=== PATIENT | male | born 1950 | race Caucasian/White ===

== ENCOUNTER 2020-06-28 18:16 | Emergency (ER) | payer OTHER, SELFPAY ==
[2020-06-28 18:31] VITALS: BP 183/83; PULSE 111; RESP 18; TEMP 37.6; O2SAT 96
[2020-06-28] MEDS: PROPARACAINE 0.5% OPHTH SOL 1 DROPS EYE-RIGHT (18:54)
--- NOTE | 2020-06-28 18:54 | ED_ITS ---
HPI - Extremity Problem General Chief complaint: Extremity Problem,Nontraumatic Stated complaint: shoulder neck pain Time Seen by Provider: 06/28/20 18:45 Source: patient and family Mode of arrival: Family Vehicle Limitations: no limitations History of Present Illness HPI Narrative: Patient is a 70-year-old male who does not go to the doctor and denies any medical history presents with bilateral neck pain ongoing for last 2- 3 days. He said previously he was chopping wood in is right handed. He said most of his pain is on the right side. He occasionally has numbness and tingling down his arm but denies any weakness. He took 1 of his 's Vicodin and has not had any relief from pain. He also is found to have a right subconjunctival hemorrhage. He states a few days ago a book fell off of shelf he thinks that it just inferior his periorbital area but he has a clear obvious subconjunctival hemorrhage. She denies any pain double vision or blurry vision MD Complaint: other (Neck pain) Onset (ago): day(s) Pain Consistency: intermittent Location: right and upper extremity Quality: burning and stabbing Related Data Home Medications Medication Instructions Recorded Confirmed ibuprofen #0 10/18/17 08/10/19 Previous Rx's Medication Instructions Recorded albuterol sulfate 90 mcg/actuation 2 puff INHALATION Q4-6H PRN #8.5 08/10/19 aerosol inhaler gram amoxicillin 875 mg-potassium 1 tab PO BID #20 tab 08/10/19 clavulanate 125 mg tablet benzonatate 100 mg capsule 100 mg PO BID PRN #14 cap 08/10/19 hydrocodone-acetaminophen [[place]] 1 tab PO Q6H PRN #10 tab 06/28/20 Allergies Allergy/AdvReac Type Severity Reaction Status Date / Time No Known Drug Allergies Allergy Verified 06/28/20 18:36 Review of Systems Review of Systems ROS Unobtainable: All systems reviewed & are unremarkable except as noted in HPI and below Constitutional Constitutional: Denies chills, Denies fever(s), Denies lethargy and Denies weakness Eyes Eyes: Reports as per HPI ENT Ears, Nose, Mouth, and Throat: Denies change in voice, Denies vertigo, Denies dizziness, Denies neck pain and Denies sore throat Cardiovascular Cardiovascular: Denies chest pain, Denies syncope, Denies irregular heart rhythm, Denies lightheadedness, Denies palpitations, Denies dyspnea, Denies dyspnea on exertion and Denies orthopnea Respiratory Respiratory: Denies cough, Denies dyspnea, Denies dyspnea on exertion and Denies wheezing Gastrointestinal Gastrointestinal: Denies abdominal pain, Denies change in bowel habits, Denies diarrhea, Denies nausea and Denies vomiting Musculoskeletal Musculoskeletal: Reports as per HPI and Denies neck pain Integumentary/Breasts Skin/Breast: Denies pruritus, Denies erythema, Denies rash and Denies wounds Neurologic Neurologic: Denies vertigo, Denies dizziness, Denies syncope and Denies weakness Endocrine Endocrine: Denies palpitations Allergic/Immunologic Allergic/Immunologic: Denies wheezing Patient History Medical History Diplopia TIA (transient ischemic attack) Social History Smoking Status: Current every day smoker Smoking Status: Current every day smoker tobacco type: cigarettes alcohol intake frequency: a few times a week Substance Use Type: does not use Exam Initial Vital Signs Initial Vital Signs: Vital Signs Temperature 99.6 F 06/28/20 18:31 Pulse Rate 111 H 06/28/20 18:31 Respiratory Rate 18 06/28/20 18:31 Blood Pressure 183/83 H 06/28/20 18:31 Pulse Oximetry 96 06/28/20 18:31 GENERAL: [Well-appearing, well-nourished] and in [no acute] distress. HEENT: Head atraumatic,EOMI, pupils reactive, face symmetric, [moist] mucous membranes NECK: No midline or vertebral tenderness tender over paraspinal muscles EYES: EOMI, right subconjunctival hemorrhage Right eye was treated with proparacaine, stained with fluorescein. No dye uptake. No foreign body. CARDIOVASCULAR: Regular rate and rhythm without murmurs, rubs or gallops. RESPIRATORY: Breath sounds equal bilaterally, no wheezes rales or rhonchi. ABDOMEN: Soft, nontender. Normoactive bowel sounds all 4 quadrants. No guarding or rebound. EXTREMITIES: Normal range of motion, no clubbing or edema. Neurovascularly intact NEUROLOGICAL: Alert and oriented x4.Normal gait and speech. Cranial nerves II through XII grossly intact. Radial median and ulnar nerve sensory and motor intact SKIN: Warm, dry, no laceration, no petechiae, no rashes or lesions. Course Orders Ordered: ED Orders 06/28/20 18:53 CT cervical spine wo con Stat Discontinued Medications Hydrocodone Bitart/Acetaminophen (Hydrocodone/Acet 5/325 Prepack) 1 bottle MISC SEEINSTR ONE Stop: 06/28/20 20:07 Last Admin: 06/28/20 20:16 Dose: 1 bottle Documented by: THA Fluorescein Sodium (Fluorescein 1 Mg Strip) 1 mg EYE-RIGHT NOW ONE Stop: 06/28/20 18:51 Last Admin: 06/28/20 18:56 Dose: 1 mg Documented by: THA Ketorolac Tromethamine (Ketorolac 60 Mg/2 Ml Vial) 30 mg IM NOW ONE Stop: 06/28/20 18:54 Last Admin: 06/28/20 18:55 Dose: 30 mg Documented by: THA Proparacaine HCl (Proparacaine 0.5% Ophth Daniella) 1 drops EYE-RIGHT NOW ONE Stop: 06/28/20 18:51 Last Admin: 06/28/20 18:54 Dose: 1 drop Documented by: THA Vital Signs Vital signs: Vital Signs - 8 hr 06/28/20 18:31 06/28/20 20:20 Temperature 99.6 F Pulse Rate 111 H 104 H Respiratory Rate 18 17 Blood Pressure 183/83 H 165/81 H Pulse Oximetry 96 97 MDM - Extremity (Nontraumatic) Imaging Data CT - cervical spine: Radiologist's Impression: PROCEDURE: CT CERVICAL SPINE WO CON INDICATIONS: pain TECHNIQUE: Noncontrast 3 mm thick sections acquired from the skull base to the T4 level. Sagittal and coronal reformats were then constructed. For radiation dose reduction, the following was used: automated exposure control, adjustment of mA and/or kV according to patient size. COMPARISON: None. FINDINGS: Image quality: Excellent. Bones: No fractures or dislocations. Visualized superior ribs are intact. Discs: C2-3, C3-4, and C4-5 has no significant disc disease and the foramina appear patent. C5-6 has disc bulge and disc osteophytes which cause mild bilateral foraminal stenosis. The central canal is patent. C6-7 has disc bulging and disc osteophytes which cause she mild bilateral foraminal stenosis. C7-T1 has no significant disc disease. Soft tissues: Prevertebral soft tissues are normal in thickness. No parave rtebral hematomas. No apical pneumothoraces. The carotid arteries have atherosclerotic calcifications. IMPRESSION: 1. No acute abnormality of the cervical spine. 2. No gross abnormality of the discs and central canal is identified, however visualization of the discs and central canal is limited with CT. Dictated by: Elvin Goodman M.D. on 06/28/2020 at 19:46 MDM Narrative Medical decision making narrative: The patient's pain is significantly improved after Toradol. He is able to move his neck. He has not had any eye pain or issue for last 3-4 days at this time seems to be a simple subconjunctival hemorrhage. Discharge Plan Departure Patient Disposition: Home Clinical Impression: Cervical muscle strain Qualifiers: Encounter type: initial encounter Qualified Code(s): S16.1XXA - Strain of muscle, fascia and tendon at neck level, initial encounter Instructions: DI for Cervical Muscle Strain, DI for Subconjunctival Hemorrhage Activity Restrictions/Additional Instructions: *You have been diagnosed with cervical strain and right subconjunctival hematoma *What to do: Increase activity as tolerated. Do not overdo it you will make it worse try heating pad 20-30 minutes at a time. Your I will take up to 1-2 weeks to heal completely. *Continue to take medications as directed Ibuprofen 600 mg every 6-8 hours if needed for [id number] pain [place] 1 tablet every 6 hours if needed for severe pain--> sent to [facility] *Follow up with your primary care provider in 2-3 days *Return to ER if you should have increasing weakness numbness tingling eye pain, decreased vision or any new, worsening or concerning symptoms CONTROLLED SUBSTANCE DISCHARGE (Narcotoic/benzodiazepine/Flexeril/Phenergan) 1. You have been prescribed narcotic medications, it does have acetaminophen/Tylenol/paracetamol in it so do not take extra Tylenol or Tylenol containing products TRAMADOL DOES NOT CONTAIN TYLENOL 2. Please understand that we cannot provide further refills of narcotics, benzodiazepines or controlled substances through the ED and her pain management will need to be through your provider. 3. While on these medications you cannot drive or operate heavy machinery. 4. You cannot sign legal documents or perform any duties such as this. 5. As long as you're taking opiate pain medications he should also be taking a stool softener such as Colace, Dulcolax, MiraLAX or prune juice, to help avoid constipation. Prescriptions: New hydrocodone-acetaminophen [[place]] 5-325 mg tablet 1 tab PO Q6H PRN (Reason: pain) Qty: 10 RF: 0 No Action amoxicillin-pot clavulanate [Augmentin] 875-125 mg tablet 1 tab PO BID Qty: 20 RF: 0 benzonatate [Tessalon Perles] 100 mg capsule 100 mg PO BID PRN (Reason: cough) Qty: 14 RF: 0 albuterol sulfate 90 mcg/actuation HFA aerosol inhaler 2 puff INHALATION Q4-6H PRN (Reason: bronchospasm) Qty: 8.5 RF: 0 ibuprofen 800 MG tablet Qty: 0 RF: 0 Referrals: Abraham Mendieta MD [Primary Care Provider] -
[2020-06-28] MEDS: KETOROLAC 60 MG/2 ML VIAL 30 MG IM (18:55)
[2020-06-28] MEDS: FLUORESCEIN 1 MG STRIP EYE-RIGHT (18:56)
[2020-06-28] MEDS: HYDROCODONE/ACET 5/325 PREPACK 1 BOTTLE MISC (20:16)
[2020-06-28 20:20] VITALS: BP 165/81; PULSE 104; RESP 17; O2SAT 97
== END 2020-06-28 20:20 | disposition home or self-care (01) ==
PROVIDERS: Emergency Provider Emergency Medicine; Family Provider Family Medicine; PCP Student in an Organized Health Care Education/Training Program
DX: S16.1XXA Strain of muscle, fascia and tendon at neck level, initial encounter (principal); H11.31 Conjunctival hemorrhage, right eye
CPT/HCPCS: 72125; 96372; 99281; 99284; STOP; J1885

== ENCOUNTER 2020-07-03 01:31 | Emergency (ER) | payer OTHER, SELFPAY ==
[2020-07-03] VITALS (25 sets, daily range): BP systolic 155–203; BP diastolic 69–93; PULSE 97–113; RESP 16–20; TEMP 36.7; O2SAT 87–98
--- NOTE | 2020-07-03 01:35 | ED.BACK ---
HPI - Back Pain/Injury <Roxana Parrish MD - Last Filed: 07/10/20 09:52> General Chief Complaint: Neck Pain/Injury Stated Complaint: neck and back pain Time Seen by Provider: 07/03/20 01:35 History of Present Illness HPI Narrative: 70-year-old gentleman who rarely sees physicians, presents with progressive neck pain and left arm weakness with decreased sensation in a C8-T1 distribution left greater than right. This begin when he was using his left hand, he is left-hand dominant, to chop some cancelling. He was seen in the emergency department on 06/26 to and had a CT of the cervical spine that showed minor disc bulging, osteophytes, mild foraminal stenosis and patent central canal. He was subsequently diagnosed with acute an acute neck strain and discharged home with hydrocodone. He was subsequently seen by his primary care physician 2 days later with increasing pain complaints and at that point was given additional narcotic as well as Valium for muscle spasm. He comes in today with pain in the neck dramatically out of proportion to what 1 would expect from neck strain due to chopping kindling 6 days ago. He denies a history of hypertension, hyperlipidemia, diabetes or coronary artery disease (atherosclerosis was noted on neck CT scan) and also declines any opportunity for primary care physician to diagnoses issues. Apparently has had a left lower extremity DVT in the past with chronic lymphedema and venous stasis ulcers bilaterally. He uses gauze to keep the ulcers clean but has not been able to attend to this for the last 2 days because of pain control from the neck. He has difficulty even sitting at this point and absolutely has not been able to lay down has been getting minimal sleep. He notes that he had chills initially but denies any fevers. He describes a chronic smoker's cough that exacerbates the pain with any of the coughing that he has. He also describes chronic low back pain that has not changed. He notes that his left arm is incredibly painful to move and when pushed with questioning actually is weaker as well. He notes a fullness to the left posterior of his neck that seems to be increasing over the last 6 days. Related Data Home Medications Medication Instructions Recorded Confirmed ibuprofen #0 10/18/17 06/30/20 Previous Rx's Medication Instructions Recorded diazepam 5 mg tablet 5 mg PO BID PRN #10 tab 06/30/20 diclofenac sodium 1 % topical gel 2 g TOPICAL QID #100 g 06/30/20 hydrocodone 5 mg-acetaminophen 325 1 tab PO Q4-6H PRN #20 tab 06/30/20 mg tablet naproxen 500 mg tablet 500 mg PO BID PRN #30 tab 06/30/20 Allergies Allergy/AdvReac Type Severity Reaction Status Date / Time No Known Drug Allergies Allergy Verified 06/30/20 16:34 Review of Systems <Roxana Parrish MD - Last Filed: 07/10/20 09:52> Review of Systems Narrative: Pertinent positive and negative findings as per HPI Remainder of review of systems is otherwise unremarkable for Constitutional: Fevers, ENT: No sore throat, ear pain CV: Chest pain, palpitations, GI: Nausea, vomiting, diarrhea, change in bowel habits, black or bloody stools : Dysuria, hematuria, flank pain, no change to bowel or bladder habits, no difficulty starting his stream or new evidence of urinary hesitancy or retention Neuro: Syncope, dizziness, Patient History <Roxana Parrish MD - Last Filed: 07/10/20 09:52> Medical History Diplopia Edema of lower leg due to peripheral venous insufficiency Heart murmur TIA (transient ischemic attack) Social History Smoking Status: Current every day smoker Tobacco: How many years used: 50 quit status: not considering quitting second hand exposure: Yes (Childhood ) alcohol intake: current (~4 glasses hard alcohol per week ) substance use type: does not use Smoking Status: Current every day smoker (~1 PPD ) tobacco type: cigarettes alcohol intake frequency: a few times a week Substance Use Type: does not use Exam <Roxana Parrish MD - Last Filed: 07/10/20 09:52> Narrative Exam Narrative: General: Cantankerous obese gentleman in dramatic pain with dramatic affect of behavior. Difficulty in moving from a sitting to standing position due to pain HEENT: Moist mucous membranes, healing right subconjunctival hemorrhage with reactive pupils, Neck: Exam is limited by body habitus but no obvious JVD. He has bilateral paraspinous muscle spasm with fullness over the left posterior neck without obvious mass or fluctuance. No skin changes to suggest cellulitis. No masses or fluctuant in the left supraclavicular area. No midline cervical spine tenderness. Range of motion of the neck is extraordinarily limited due to pain. No airway compromise or subcutaneous air Respiratory: Lungs with scattered wheezes worse anteriorly and loudest and left upper lobe. No crackles, no rhonchi. Full and symmetrical air movement Cardiac: Regular rate and rhythm with harsh blowing 3/6 systolic ejection murmur and no bruits Abdomen: Obese, Soft, nontender good bowel tones, no flank pain Skin: Warm and dry, left ankle venous stasis wounds with some drainage but minor erythema over medial and lateral malleoli. Neurologic: Cranial nerves are intact. Is decreased sensation to fine touch and pinprick in a C8-T1 distribution more dense on the left side but also appreciated on the right side. 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 Weakness with abduction and extension of the left arm Extremities: No trauma, significant bilateral onychomycosis. Good capillary refill but no palpable distal pulses. Left lower extremity significantly more edematous than the right, patient describes this as his baseline for number of years. Psych: Cooperative, appropriate insight and affect Initial Vital Signs Initial Vital Signs: Vital Signs Temperature 98.1 F 07/03/20 01:35 Pulse Rate 106 H 07/03/20 01:35 Respiratory Rate 18 07/03/20 01:35 Blood Pressure 203/93 H 07/03/20 01:35 Pulse Oximetry 98 07/03/20 01:35 <Ashli Streeter DO - Last Filed: 07/03/20 18:42> Initial Vital Signs Initial Vital Signs: Vital Signs Temperature 98.1 F 07/03/20 01:35 Pulse Rate 106 H 07/03/20 01:35 Respiratory Rate 18 07/03/20 01:35 Blood Pressure 203/93 H 07/03/20 01:35 Pulse Oximetry 98 07/03/20 01:35 Course <Roxana Parrish MD - Last Filed: 07/10/20 09:52> Orders Ordered: Discontinued Medications Dexamethasone (Dexamethasone 10 Mg/Ml Vial) 10 mg IV NOW ONE Stop: 07/03/20 02:19 Last Admin: 07/03/20 02:37 Dose: 10 mg Documented by: HGUBERN Hydromorphone HCl (Hydromorphone 1 Mg Inj) 1 mg IV NOW ONE Stop: 07/03/20 02:15 Last Admin: 07/03/20 02:37 Dose: 1 mg Documented by: THA Hydromorphone HCl (Hydromorphone 1 Mg Inj) 1 mg IV NOW ONE Stop: 07/03/20 02:20 Last Admin: 07/03/20 07:51 Dose: Not Given Documented by: ANGEL Hydromorphone HCl (Hydromorphone 1 Mg Inj) 1 mg IV NOW ONE Stop: 07/03/20 07:47 Last Admin: 07/03/20 07:55 Dose: 1 mg Documented by: ANGEL Hydromorphone HCl (Hydromorphone 1 Mg Inj) 1 mg IV NOW ONE Stop: 07/03/20 11:04 Last Admin: 07/03/20 11:14 Dose: 1 mg Documented by: ANGEL Ketorolac Tromethamine (Ketorolac 60 Mg/2 Ml Vial) 15 mg IV NOW ONE Stop: 07/03/20 02:18 Last Admin: 07/03/20 02:36 Dose: 15 mg Documented by: THA Ketorolac Tromethamine (Ketorolac 60 Mg/2 Ml Vial) 15 mg IV NOW ONE Stop: 07/03/20 11:08 Last Admin: 07/03/20 11:15 Dose: 15 mg Documented by: ANGEL Vital Signs Vital signs: Vital Signs - 8 hr 07/03/20 12:05 07/03/20 12:12 07/03/20 13:43 Pulse Rate 107 H 107 H Respiratory Rate 20 16 Blood Pressure 168/78 H 168/78 H 170/78 H Pulse Oximetry 91 94 <Ashli Streeter, DO - Last Filed: 07/03/20 18:42> Orders Ordered: Discontinued Medications Dexamethasone (Dexamethasone 10 Mg/Ml Vial) 10 mg IV NOW ONE Stop: 07/03/20 02:19 Last Admin: 07/03/20 02:37 Dose: 10 mg Documented by: THA Hydromorphone HCl (Hydromorphone 1 Mg Inj) 1 mg IV NOW ONE Stop: 07/03/20 02:15 Last Admin: 07/03/20 02:37 Dose: 1 mg Documented by: HGUBERN Hydromorphone HCl (Hydromorphone 1 Mg Inj) 1 mg IV NOW ONE Stop: 07/03/20 02:20 Last Admin: 07/03/20 07:51 Dose: Not Given Documented by: ANGEL Hydromorphone HCl (Hydromorphone 1 Mg Inj) 1 mg IV NOW ONE Stop: 07/03/20 07:47 Last Admin: 07/03/20 07:55 Dose: 1 mg Documented by: ANGEL Hydromorphone HCl (Hydromorphone 1 Mg Inj) 1 mg IV NOW ONE Stop: 07/03/20 11:04 Last Admin: 07/03/20 11:14 Dose: 1 mg Documented by: ANGEL Ketorolac Tromethamine (Ketorolac 60 Mg/2 Ml Vial) 15 mg IV NOW ONE Stop: 07/03/20 02:18 Last Admin: 07/03/20 02:36 Dose: 15 mg Documented by: THA Ketorolac Tromethamine (Ketorolac 60 Mg/2 Ml Vial) 15 mg IV NOW ONE Stop: 07/03/20 11:08 Last Admin: 07/03/20 11:15 Dose: 15 mg Documented by: ANGEL Reevaluation(s) Reevaluation #1: Patient signed out to myself by Dr. Parrish. Seen in department, reviewed HPI, labs and imaging. Plan for MRI this morning to further delineate changes seen in left posterior strap muscle region and for final disposition. Time: 07:29 Reevaluation #2: Patient refused MRI as it was too painful, discussed adding medications as his last dose was about 2 hours ago. Patient was continuing to be reluctant his eventually arrived and we were able to talk him into MRI but at that point the window for the initial imaging had passed. There was another opening at 3:30 p.m. and I discussed that I am happy to treat his pain at any time here in the department or any way that is possible as a field very important that he get imaging. Patient is agreeable his is at bedside and seems much more comfortable with this plan. I also made clear that I am happy to give medications prior to any imaging to make him as comfortable as possible for imaging. Time: 10:35 Reevaluation #3: Patient left the department without telling anyone, his noticed that he had gone to the bathroom and then just left. He refuses to re-enter the department and has signed against medical advice. Patient had multiple discussions about the potential causes of his symptoms today and findings so far in his images. We had multiple discussions the possibility of disability or further injury secondary to this and patient did sign paperwork after he left the department but would not re-enter. Time: 14:53 Vital Signs Vital signs: Vital Signs - 8 hr 07/03/20 12:05 07/03/20 12:12 07/03/20 13:43 Pulse Rate 107 H 107 H Respiratory Rate 20 16 Blood Pressure 168/78 H 168/78 H 170/78 H Pulse Oximetry 91 94 MDM - Back Pain/Injury <Roxana Parrish MD - Last Filed: 07/10/20 09:52> Lab Data Result diagrams: 07/03/20 02:25 07/03/20 02:25 Labs: Lab Results 07/03/20 07/03/20 07/03/20 Range/Units 02:25 02:25 02:25 WBC 13.8 H (4.5-11.0) X10^3/uL RBC 4.39 L (4.5-5.9) X10^6/uL Hgb 12.3 L (13.5-17.5) g/dL Hct 37.2 L (41-53) % MCV 84.8 (80-100) fL MCH 27.9 (26-34) PG MCHC 33.0 (30-36) % RDW 14.4 (11.6-14.8) % Plt Count 259 (150-400) X10^3/uL Neut % (Auto) 73.4 (50-75) % Lymph % (Auto) 6.9 L (25-40) % [place] % (Auto) 18.4 H (3-14) % Eos % (Auto) 1.0 L (2-4) % Baso % (Auto) 0.3 (0-2) % Neut # (Auto) 61334 H (5961-2837) /uL Lymph # (Auto) 900 L (5348-2556) /uL [place] # (Auto) 2500 H (0-900) /uL Eos # (Auto) 100 (0-450) /uL Baso # (Auto) 0 (0-100) /uL ESR 59 H (0-15) MM/HR PT (10.1-12.7) SECONDS INR (0.9-1.3) APTT (26.4-36.2) SECONDS Sodium (137-145) mmol/L Potassium (3.4-5.1) mmol/L Chloride (98-107) mmol/L Carbon Dioxide (22-32) mmol/L BUN (9-20) mg/dL Creatinine (0.66-1.25) mg/dL Estimated GFR (>60) mL/min BUN/Creatinine Ratio (6-22) Glucose (80-110) mg/dL Calcium (8.4-10.2) mg/dL Total Bilirubin (0.2-1.3) mg/dL AST (17-59) IU/L ALT (<50) IU/L Alkaline Phosphatase (38-126) U/L C-Reactive Protein 45.4 H (<1.0) mg/dL Total Protein (6.3-8.2) g/dL Albumin (3.5-5.0) g/dL Globulin (1.7-4.1) g/dL Albumin/Globulin Ratio (1.0-2.8) Procalcitonin (<0.5) ng/mL Urine RBC (0-5/HPF) Urine WBC (0-5/HPF) Urine Bacteria (None) Ur Culture Indicated? A. baumannii (PCR) (Not Detect) Adyana albicans (PCR) (Not Detect) C. glabrata (PCR) (Not Detect) C. krusei (PCR) (Not Detect) C. parapsilosis (PCR) (Not Detect) C. tropicalis (PCR) (Not Detect) COVID-19 PCR (Negative) Enterobacteriac sp PCR (Not Detect) E. cloacae complex PCR (Not Detect) Enterococcus sp PCR (Not Detect) E. coli (PCR) (Not Detect) H. influenzae (PCR) (Not Detect) Klebsiella oxytoca PCR (Not Detect) Klebsiella pneumoniae (Not Detect) List. monocytogenes PCR (Not Detect) N. meningitidis (PCR) (Not Detect) Proteus species (PCR) (Not Detect) Serratia marcescens PCR (Not Detect) Staphylococcus sp PCR (Not Detect) Staph aureus (PCR) (Not Detect) mecA-Methicil Res Gene (Not Detect) Streptococcus sp PCR (Not Detect) Group A Strep (PCR) (Not Detect) Strep agalactiae (PCR) (Not Detect) Strep pneumoniae (PCR) (Not Detect) P. aeruginosa (PCR) (Not Detect) Jordana/B-Vanco Res Genes (Not Detect) KPC-Carbap Res Gene PCR (Not Detect) 07/03/20 07/03/20 07/03/20 Range/Units 02:25 02:25 02:25 WBC (4.5-11.0) X10^3/uL RBC (4.5-5.9) X10^6/uL Hgb (13.5-17.5) g/dL Hct (41-53) % MCV (80-100) fL MCH (26-34) PG MCHC (30-36) % RDW (11.6-14.8) % Plt Count (150-400) X10^3/uL Neut % (Auto) (50-75) % Lymph % (Auto) (25-40) % [place] % (Auto) (3-14) % Eos % (Auto) (2-4) % Baso % (Auto) (0-2) % Neut # (Auto) (7456-6554) /uL Lymph # (Auto) (9836-5275) /uL [place] # (Auto) (0-900) /uL Eos # (Auto) (0-450) /uL Baso # (Auto) (0-100) /uL ESR (0-15) MM/HR PT 15.0 H (10.1-12.7) SECONDS INR 1.3 (0.9-1.3) APTT 31 (26.4-36.2) SECONDS Sodium 135 L (137-145) mmol/L Potassium 3.5 (3.4-5.1) mmol/L Chloride 100 (98-107) mmol/L Carbon Dioxide 26 (22-32) mmol/L BUN 29 H (9-20) mg/dL Creatinine 0.68 (0.66-1.25) mg/dL Estimated GFR > 60.0 (>60) mL/min BUN/Creatinine Ratio 42.6 H (6-22) Glucose 147 H (80-110) mg/dL Calcium 9.2 (8.4-10.2) mg/dL Total Bilirubin 0.5 (0.2-1.3) mg/dL AST 30 (17-59) IU/L ALT 43 (<50) IU/L Alkaline Phosphatase 140 H (38-126) U/L C-Reactive Protein (<1.0) mg/dL Total Protein 7.5 (6.3-8.2) g/dL Albumin 3.9 (3.5-5.0) g/dL Globulin 3.6 (1.7-4.1) g/dL Albumin/Globulin Ratio 1.1 (1.0-2.8) Procalcitonin 0.35 (<0.5) ng/mL Urine RBC (0-5/HPF) Urine WBC (0-5/HPF) Urine Bacteria (None) Ur Culture Indicated? A. baumannii (PCR) (Not Detect) Dayana albicans (PCR) (Not Detect) C. glabrata (PCR) (Not Detect) C. krusei (PCR) (Not Detect) C. parapsilosis (PCR) (Not Detect) C. tropicalis (PCR) (Not Detect) COVID-19 PCR (Negative) Enterobacteriac sp PCR (Not Detect) E. cloacae complex PCR (Not Detect) Enterococcus sp PCR (Not Detect) E. coli (PCR) (Not Detect) H. influenzae (PCR) (Not Detect) Klebsiella oxytoca PCR (Not Detect) Klebsiella pneumoniae (Not Detect) List. monocytogenes PCR (Not Detect) N. meningitidis (PCR) (Not Detect) Proteus species (PCR) (Not Detect) Serratia marcescens PCR (Not Detect) Staphylococcus sp PCR (Not Detect) Staph aureus (PCR) (Not Detect) mecA-Methicil Res Gene (Not Detect) Streptococcus sp PCR (Not Detect) Group A Strep (PCR) (Not Detect) Strep agalactiae (PCR) (Not Detect) Strep pneumoniae (PCR) (Not Detect) P. aeruginosa (PCR) (Not Detect) Jordana/B-Vanco Res Genes (Not Detect) KPC-Carbap Res Gene PCR (Not Detect) 07/03/20 07/03/20 07/03/20 Range/Units 02:25 03:20 08:09 WBC (4.5-11.0) X10^3/uL RBC (4.5-5.9) X10^6/uL Hgb (13.5-17.5) g/dL Hct (41-53) % MCV (80-100) fL MCH (26-34) PG MCHC (30-36) % RDW (11.6-14.8) % Plt Count (150-400) X10^3/uL Neut % (Auto) (50-75) % Lymph % (Auto) (25-40) % [place] % (Auto) (3-14) % Eos % (Auto) (2-4) % Baso % (Auto) (0-2) % Neut # (Auto) (0470-0899) /uL Lymph # (Auto) (6589-7745) /uL [place] # (Auto) (0-900) /uL Eos # (Auto) (0-450) /uL Baso # (Auto) (0-100) /uL ESR (0-15) MM/HR PT (10.1-12.7) SECONDS INR (0.9-1.3) APTT (26.4-36.2) SECONDS Sodium (137-145) mmol/L Potassium (3.4-5.1) mmol/L Chloride (98-107) mmol/L Carbon Dioxide (22-32) mmol/L BUN (9-20) mg/dL Creatinine (0.66-1.25) mg/dL Estimated GFR (>60) mL/min BUN/Creatinine Ratio (6-22) Glucose (80-110) mg/dL Calcium (8.4-10.2) mg/dL Total Bilirubin (0.2-1.3) mg/dL AST (17-59) IU/L ALT (<50) IU/L Alkaline Phosphatase (38-126) U/L C-Reactive Protein (<1.0) mg/dL Total Protein (6.3-8.2) g/dL Albumin (3.5-5.0) g/dL Globulin (1.7-4.1) g/dL Albumin/Globulin Ratio (1.0-2.8) Procalcitonin (<0.5) ng/mL Urine RBC None seen (0-5/HPF) Urine WBC 5-10/hpf H (0-5/HPF) Urine Bacteria None seen (None) Ur Culture Indicated? Specimen cultured A. baumannii (PCR) Not detected (Not Detect) Dayana albicans (PCR) Not detected (Not Detect) C. glabrata (PCR) Not detected (Not Detect) C. krusei (PCR) Not detected (Not Detect) C. parapsilosis (PCR) Not detected (Not Detect) C. tropicalis (PCR) Not detected (Not Detect) COVID-19 PCR Negative (Negative) Enterobacteriac sp PCR Not detected (Not Detect) E. cloacae complex PCR Not detected (Not Detect) Enterococcus sp PCR Not detected (Not Detect) E. coli (PCR) Not detected (Not Detect) H. influenzae (PCR) Not detected (Not Detect) Klebsiella oxytoca PCR Not detected (Not Detect) Klebsiella pneumoniae Not detected (Not Detect) List. monocytogenes PCR Not detected (Not Detect) N. meningitidis (PCR) Not detected (Not Detect) Proteus species (PCR) Not detected (Not Detect) Serratia marcescens PCR Not detected (Not Detect) Staphylococcus sp PCR Detected H (Not Detect) Staph aureus (PCR) Detected H (Not Detect) mecA-Methicil Res Gene Not detected (Not Detect) Streptococcus sp PCR Not detected (Not Detect) Group A Strep (PCR) Not detected (Not Detect) Strep agalactiae (PCR) Not detected (Not Detect) Strep pneumoniae (PCR) Not detected (Not Detect) P. aeruginosa (PCR) Not detected (Not Detect) Jordana/B-Vanco Res Genes Not detected (Not Detect) KPC-Carbap Res Gene PCR Not detected (Not Detect) Urine Dip Bedside Urine Glucose Negative Bedside Urine Bilirubin - Negative Bedside Urine Ketone - Negative Urine Specific [place] 1.020 Bedside Urine Occult Blood - Negative Bedside Urine pH 6.0 Bedside Urine Protein + 30 Bedside Urine Urobilinogen - Negative Bedside Urine Nitrite - Negative Bedside Urine Leukocytes - Negative Esterase Imaging Data CT neck: Radiologist's Impression: New fullness in the left paraspinous strap musculature not present 5 days ago. Ill-defined with intramuscular low attenuation measuring 2.2 x 2.9 x 3.9. No involvement of the spine or intraspinous space no gas within the collection no significant abnormal enhancement consistent with hematoma or developing infection. Moderate left lower posterior chain and supraclavicular adenopathy Dr Miguel Rodriguez CT scan - chest: Radiologist's Impression: No abnormality identified within the chest Incompletely assessed low attenuation lesion of right lobe of liver could represent a cyst or a hamartoma Dr Miguel Rodriguez [facility] Narrative Medical decision making narrative: 70-year-old gentleman with now 6 days of increasing neck pain with progressive left-sided paresthesia and weakness. Pain is dramatically out of proportion to exam. Patient is very reluctant to allow a complete exam and not interested in any additional discussion of problems that may be contributing. With the progressive numbness and weakness he certainly is going to need additional imaging. With the fullness in the left posterior neck soft tissue will begin with adding a soft tissue of the neck to complement the C-spine CT scan done on the . Will also include a CT scan of the chest with possibility of neoplasm or abnormality in the left upper lobe that is contributing to overall pain. He also has venous stasis ulcers that are superficially draining but do not appear to be overtly infected. He denies permission for complete examination, cleaning or debridement of these areas. Possibility of cervical spine epidural abscess is entertained. He agrees to labs, pain control and additional imaging studies. If problem is not clearly elucidated with initial workup he will be appropriate for cervical spine MRI given the dramatic pain and progressive weakness in the left arm. 430am pain is much better controlled after soft collar in place and IV Toradol, Dilaudid, Decadron given. White blood cell count is slightly elevated at 13.8 without significant left shift. Mild anemia with H&H of 12.3 and 37.2 decreased from 15.4 in 45.73 years ago. Chemistries are Relatively reassuring. Slightly elevated alkaline phosphatase. At least 6 hour fasting glucose at 1:47 a.m. will need further workup at some point in the future. Elevated C reactive protein and sed rate suggesting inflammatory response without an elevated procalcitonin. No obvious malignancy is appreciated on scans however he does have this new density in left posterior strap muscles noted on the soft tissue of the neck. Unclear whether this is a hematoma he has had a decrease in his hematocrit but comparison is 3 years ago or infection with a slightly elevated white blood cell count however no evidence of an elevated procalcitonin. While this inflammatory response of uncertain etiology in the left posterior strap muscles can certainly explain the increased pain they do not necessarily explain the weakness or paresthesia and certainly do not explain the right-sided weakness or paresthesia. At this point, and MRI to completely exclude epidural abscess and further quantify the fullness and adenopathy in the left posterior strap muscles will be appropriate. Case is reviewed with Dr. Rodriguez, radiologist. Given constellation of symptoms and findings as well as rapid interval development he agrees that an MRI of the C-spine without contrast would be the next most appropriate study. <Ashli Streeter, DO - Last Filed: 07/03/20 18:42> Lab Data Labs: Lab Results 07/03/20 07/03/20 07/03/20 Range/Units 02:25 02:25 02:25 WBC 13.8 H (4.5-11.0) X10^3/uL RBC 4.39 L (4.5-5.9) X10^6/uL Hgb 12.3 L (13.5-17.5) g/dL Hct 37.2 L (41-53) % MCV 84.8 (80-100) fL MCH 27.9 (26-34) PG MCHC 33.0 (30-36) % RDW 14.4 (11.6-14.8) % Plt Count 259 (150-400) X10^3/uL Neut % (Auto) 73.4 (50-75) % Lymph % (Auto) 6.9 L (25-40) % [place] % (Auto) 18.4 H (3-14) % Eos % (Auto) 1.0 L (2-4) % Baso % (Auto) 0.3 (0-2) % Neut # (Auto) 98314 H (4936-5959) /uL Lymph # (Auto) 900 L (7205-6348) /uL [place] # (Auto) 2500 H (0-900) /uL Eos # (Auto) 100 (0-450) /uL Baso # (Auto) 0 (0-100) /uL ESR 59 H (0-15) MM/HR PT (10.1-12.7) SECONDS INR (0.9-1.3) APTT (26.4-36.2) SECONDS Sodium (137-145) mmol/L Potassium (3.4-5.1) mmol/L Chloride (98-107) mmol/L Carbon Dioxide (22-32) mmol/L BUN (9-20) mg/dL Creatinine (0.66-1.25) mg/dL Estimated GFR (>60) mL/min BUN/Creatinine Ratio (6-22) Glucose (80-110) mg/dL Calcium (8.4-10.2) mg/dL Total Bilirubin (0.2-1.3) mg/dL AST (17-59) IU/L ALT (<50) IU/L Alkaline Phosphatase (38-126) U/L C-Reactive Protein 45.4 H (<1.0) mg/dL Total Protein (6.3-8.2) g/dL Albumin (3.5-5.0) g/dL Globulin (1.7-4.1) g/dL Albumin/Globulin Ratio (1.0-2.8) Procalcitonin (<0.5) ng/mL Urine RBC (0-5/HPF) Urine WBC (0-5/HPF) Urine Bacteria (None) Ur Culture Indicated? A. baumannii (PCR) (Not Detect) Dayana albicans (PCR) (Not Detect) C. glabrata (PCR) (Not Detect) C. krusei (PCR) (Not Detect) C. parapsilosis (PCR) (Not Detect) C. tropicalis (PCR) (Not Detect) COVID-19 PCR (Negative) Enterobacteriac sp PCR (Not Detect) E. cloacae complex PCR (Not Detect) Enterococcus sp PCR (Not Detect) E. coli (PCR) (Not Detect) H. influenzae (PCR) (Not Detect) Klebsiella oxytoca PCR (Not Detect) Klebsiella pneumoniae (Not Detect) List. monocytogenes PCR (Not Detect) N. meningitidis (PCR) (Not Detect) Proteus species (PCR) (Not Detect) Serratia marcescens PCR (Not Detect) Staphylococcus sp PCR (Not Detect) Staph aureus (PCR) (Not Detect) mecA-Methicil Res Gene (Not Detect) Streptococcus sp PCR (Not Detect) Group A Strep (PCR) (Not Detect) Strep agalactiae (PCR) (Not Detect) Strep pneumoniae (PCR) (Not Detect) P. aeruginosa (PCR) (Not Detect) Jordana/B-Vanco Res Genes (Not Detect) KPC-Carbap Res Gene PCR (Not Detect) 07/03/20 07/03/20 07/03/20 Range/Units 02:25 02:25 02:25 WBC (4.5-11.0) X10^3/uL RBC (4.5-5.9) X10^6/uL Hgb (13.5-17.5) g/dL Hct (41-53) % MCV (80-100) fL MCH (26-34) PG MCHC (30-36) % RDW (11.6-14.8) % Plt Count (150-400) X10^3/uL Neut % (Auto) (50-75) % Lymph % (Auto) (25-40) % [place] % (Auto) (3-14) % Eos % (Auto) (2-4) % Baso % (Auto) (0-2) % Neut # (Auto) ([id number]) /uL Lymph # (Auto) (1631-2928) /uL [place] # (Auto) (0-900) /uL Eos # (Auto) (0-450) /uL Baso # (Auto) (0-100) /uL ESR (0-15) MM/HR PT 15.0 H (10.1-12.7) SECONDS INR 1.3 (0.9-1.3) APTT 31 (26.4-36.2) SECONDS Sodium 135 L (137-145) mmol/L Potassium 3.5 (3.4-5.1) mmol/L Chloride 100 (98-107) mmol/L Carbon Dioxide 26 (22-32) mmol/L BUN 29 H (9-20) mg/dL Creatinine 0.68 (0.66-1.25) mg/dL Estimated GFR > 60.0 (>60) mL/min BUN/Creatinine Ratio 42.6 H (6-22) Glucose 147 H (80-110) mg/dL Calcium 9.2 (8.4-10.2) mg/dL Total Bilirubin 0.5 (0.2-1.3) mg/dL AST 30 (17-59) IU/L ALT 43 (<50) IU/L Alkaline Phosphatase 140 H (38-126) U/L C-Reactive Protein (<1.0) mg/dL Total Protein 7.5 (6.3-8.2) g/dL Albumin 3.9 (3.5-5.0) g/dL Globulin 3.6 (1.7-4.1) g/dL Albumin/Globulin Ratio 1.1 (1.0-2.8) Procalcitonin 0.35 (<0.5) ng/mL Urine RBC (0-5/HPF) Urine WBC (0-5/HPF) Urine Bacteria (None) Ur Culture Indicated? A. baumannii (PCR) (Not Detect) Dayana albicans (PCR) (Not Detect) C. glabrata (PCR) (Not Detect) C. krusei (PCR) (Not Detect) C. parapsilosis (PCR) (Not Detect) C. tropicalis (PCR) (Not Detect) COVID-19 PCR (Negative) Enterobacteriac sp PCR (Not Detect) E. cloacae complex PCR (Not Detect) Enterococcus sp PCR (Not Detect) E. coli (PCR) (Not Detect) H. influenzae (PCR) (Not Detect) Klebsiella oxytoca PCR (Not Detect) Klebsiella pneumoniae (Not Detect) List. monocytogenes PCR (Not Detect) N. meningitidis (PCR) (Not Detect) Proteus species (PCR) (Not Detect) Serratia marcescens PCR (Not Detect) Staphylococcus sp PCR (Not Detect) Staph aureus (PCR) (Not Detect) mecA-Methicil Res Gene (Not Detect) Streptococcus sp PCR (Not Detect) Group A Strep (PCR) (Not Detect) Strep agalactiae (PCR) (Not Detect) Strep pneumoniae (PCR) (Not Detect) P. aeruginosa (PCR) (Not Detect) Jordana/B-Vanco Res Genes (Not Detect) KPC-Carbap Res Gene PCR (Not Detect) 07/03/20 07/03/20 07/03/20 Range/Units 02:25 03:20 08:09 WBC (4.5-11.0) X10^3/uL RBC (4.5-5.9) X10^6/uL Hgb (13.5-17.5) g/dL Hct (41-53) % MCV (80-100) fL MCH (26-34) PG MCHC (30-36) % RDW (11.6-14.8) % Plt Count (150-400) X10^3/uL Neut % (Auto) (50-75) % Lymph % (Auto) (25-40) % [place] % (Auto) (3-14) % Eos % (Auto) (2-4) % Baso % (Auto) (0-2) % Neut # (Auto) (6699-3909) /uL Lymph # (Auto) (0198-5560) /uL [place] # (Auto) (0-900) /uL Eos # (Auto) (0-450) /uL Baso # (Auto) (0-100) /uL ESR (0-15) MM/HR PT (10.1-12.7) SECONDS INR (0.9-1.3) APTT (26.4-36.2) SECONDS Sodium (137-145) mmol/L Potassium (3.4-5.1) mmol/L Chloride (98-107) mmol/L Carbon Dioxide (22-32) mmol/L BUN (9-20) mg/dL Creatinine (0.66-1.25) mg/dL Estimated GFR (>60) mL/min BUN/Creatinine Ratio (6-22) Glucose (80-110) mg/dL Calcium (8.4-10.2) mg/dL Total Bilirubin (0.2-1.3) mg/dL AST (17-59) IU/L ALT (<50) IU/L Alkaline Phosphatase (38-126) U/L C-Reactive Protein (<1.0) mg/dL Total Protein (6.3-8.2) g/dL Albumin (3.5-5.0) g/dL Globulin (1.7-4.1) g/dL Albumin/Globulin Ratio (1.0-2.8) Procalcitonin (<0.5) ng/mL Urine RBC None seen (0-5/HPF) Urine WBC 5-10/hpf H (0-5/HPF) Urine Bacteria None seen (None) Ur Culture Indicated? Specimen cultured A. baumannii (PCR) Not detected (Not Detect) Dayana albicans (PCR) Not detected (Not Detect) C. glabrata (PCR) Not detected (Not Detect) C. krusei (PCR) Not detected (Not Detect) C. parapsilosis (PCR) Not detected (Not Detect) C. tropicalis (PCR) Not detected (Not Detect) COVID-19 PCR Negative (Negative) Enterobacteriac sp PCR Not detected (Not Detect) E. cloacae complex PCR Not detected (Not Detect) Enterococcus sp PCR Not detected (Not Detect) E. coli (PCR) Not detected (Not Detect) H. influenzae (PCR) Not detected (Not Detect) Klebsiella oxytoca PCR Not detected (Not Detect) Klebsiella pneumoniae Not detected (Not Detect) List. monocytogenes PCR Not detected (Not Detect) N. meningitidis (PCR) Not detected (Not Detect) Proteus species (PCR) Not detected (Not Detect) Serratia marcescens PCR Not detected (Not Detect) Staphylococcus sp PCR Detected H (Not Detect) Staph aureus (PCR) Detected H (Not Detect) mecA-Methicil Res Gene Not detected (Not Detect) Streptococcus sp PCR Not detected (Not Detect) Group A Strep (PCR) Not detected (Not Detect) Strep agalactiae (PCR) Not detected (Not Detect) Strep pneumoniae (PCR) Not detected (Not Detect) P. aeruginosa (PCR) Not detected (Not Detect) Jordana/B-Vanco Res Genes Not detected (Not Detect) KPC-Carbap Res Gene PCR Not detected (Not Detect) Urine Dip Bedside Urine Glucose Negative Bedside Urine Bilirubin - Negative Bedside Urine Ketone - Negative Urine Specific [place] 1.020 Bedside Urine Occult Blood - Negative Bedside Urine pH 6.0 Bedside Urine Protein + 30 Bedside Urine Urobilinogen - Negative Bedside Urine Nitrite - Negative Bedside Urine Leukocytes - Negative Esterase MDM Narrative Medical decision making narrative: Patient was attempted to re-contact after positive blood culture was called to ED after patient left. Called [phone] and left message at family number to call back that important and serious culture resulted and patient needs to return. Also called [phone] which was a non-working number as person to notify, daughter Yazmin. Patient did leave AMA and we had talked extensively about my concern for possible serious infection such as epidural abscess, osteomyelitis or other possible life threatening issue. Patient did call back and was told to return, his is also on the line and they will return per patient and . Discharge Plan Departure Patient Disposition: Left Against Medical Advice Clinical Impression: Heart murmur, Edema of lower leg due to peripheral venous insufficiency, Neck infection Venous stasis ulcer of ankle Qualifiers: Varicose vein presence: without varicose veins Laterality: left Non-pressure ulcer stage: with fat layer exposed Qualified Code(s): I87.2 - Venous insufficiency (chronic) (peripheral) Activity Restrictions/Additional Instructions: Your CT imaging shows possible infection in your soft tissue or bone or epidural space versus blood collection or ligament damage or muscle injury and you need further imaging/MRI. These can potentially be permanently disabiling injuries/illness or cause . It is not recommended that you return home. You may return at any time to the re-evaluation and treatment and imaging. MRI is not available 24 hours a day. Prescriptions: No Action ibuprofen 800 MG tablet Qty: 0 RF: 0 hydrocodone-acetaminophen 5-325 mg tablet 1 tab PO Q4-6H PRN (Reason: pain) Qty: 20 RF: 0 diazepam 5 mg tablet 5 mg PO BID PRN (Reason: muscle spasm) Qty: 10 RF: 0 naproxen [Naprosyn] 500 mg tablet 500 mg PO BID PRN (Reason: pain) Qty: 30 RF: 0 diclofenac sodium 1 % gel 2 g topical QID Qty: 100 RF: 1 Referrals: Abraham Mendieta MD [Primary Care Provider] - Stand Alone Forms: Against Medical Advice
--- NOTE | 2020-07-03 02:14 | DI.CT.S_ITS ---
PROCEDURE: CT SOFT TISSUE NECK W CON INDICATIONS: fullness left posterior neck, increased pain- Cspine 06/28 TECHNIQUE: After the administration of intravenous contrast, 3.0 mm axial sections acquired from the sella to the aortic arch. Additional oblique axial 3.0 mm sections acquired through the pharynx. 3 mm thick coronal and sagittal reformats were generated. For radiation dose reduction, the following was used: automated exposure control. COMPARISON: None. FINDINGS: Image quality: Excellent. Lymph nodes: No enlarged lymph nodes seen throughout the neck. Vessels: Visualized vasculature appears patent. Neck spaces: The oropharynx, nasopharynx, and pharynx demonstrate no mucosal lesions. The vocal cords, false vocal cords, pyriform sinuses, epiglottis, vallecula, and tongue base all appear normal. Extramucosal spaces appear unremarkable. Glands: The parotid and submandibular glands appear normal. Thyroid gland appears normal where well seen. Miscellaneous: Visualized brain and orbits appear normal. Lung apices appear clear. Superficial soft tissues appear normal. Note is made of asymmetric thickening of the strap musculature at the left posterior neck, in an area measuring up to 3.2 x 1.8 cm in maximal axial dimension and clearly asymmetrically prominent when compared to that on the right. There is indistinct margination of the muscular fascial layers in this portion of the strap muscles, and this extends craniocaudad over approximately an 8 cm length. Bones: No suspicious bony lesions. Visualized sinuses and mastoids appear unremarkable. IMPRESSION: Abnormal thickening of the left posterior neck strap musculature, with a craniocaudad dimension and maximal axial dimension at 3.2 x 1.8 cm. This could represent evidence of infection within this area, or subacute hemorrhage. MR scanning with contrast would provide additional anatomic detail. Extension of the process to the cervical spine margin is not seen. Please correlate clinically to determine whether emergent surgical intervention and/or MR scanning is warranted at this time. Note: These findings are concordant with the preliminary interpretation. Dictated by: Jarad Leal M.D. on 07/03/2020 9:58 Approved by: Jarad Leal M.D. on 07/03/2020 at 10:03
--- NOTE | 2020-07-03 02:17 | DI.CT.S_ITS ---
PROCEDURE: CT CHEST W CON INDICATIONS: L upper lung pain, long time smoker TECHNIQUE: After the administration of intravenous contrast, 5 mm thick sections acquired from the pulmonary apices to the posterior costophrenic angles. 1 mm axial lung, 5 mm thick coronal and sagittal reformats and 7 mm axial MIP were acquired. For radiation dose reduction, the following was used: automated exposure control, adjustment of mA and/or kV according to patient size. COMPARISON: [facility], CT, CT CERVICAL SPINE WO CON, 06/28/2020, 19:12. [facility], CR, CHEST 1 VIEW, 08/07/2016, 13:48. [facility], CR, CHEST 2 VIEW, 10/18/2017, 11:12. FINDINGS: Image quality: Excellent. Lungs and pleura: No definite acute air space opacities but there is mild alveolar infiltration at the far posterolateral border of the right upper lobe, seen centered on series 2, image 41 and located at the axial level correlated with the eliecer. No pleural effusions or pneumothorax. Central and peripheral airways are patent and normal in caliber. Mediastinum: Heart size is normal. No pericardial effusion. No mediastinal or hilar adenopathy by size criteria. Thoracic aorta and central pulmonary arteries are normal in size. Esophagus is normal in caliber. No hiatal hernia. Bones and chest wall: No suspicious bony lesions. No vertebral body compression fractures. No axillary or supraclavicular adenopathy by size criteria. Thyroid gland is normal where well seen. Abdomen: Visualized upper abdominal solid organs appear normal. Upper abdominal bowel loops are normal in caliber. Note is made of a rounded peripheral subcapsular right hepatic 1.5 cm presumed cyst. IMPRESSION: A definite source of left upper chest pain is not found. Note is made of slight degree of alveolar infiltration at the posterolateral right upper lobe inferiorly, mid chest level. Lung scarring or slight pneumonia both could produce that appearance. Incidental note is made of a small presumed cyst measuring near water density within the right hepatic lobe posteriorly. Dictated by: Jarad Leal M.D. on 07/03/2020 at 9:36 Approved by: Jarad Leal M.D. on 07/03/2020 at 9:54
[2020-07-03] MEDS: KETOROLAC 60 MG/2 ML VIAL 15 MG IV ×2 (02:36→11:15)
[2020-07-03] MEDS: DEXAMETHASONE 10 MG/ML VIAL IV (02:37)
[2020-07-03] MEDS: HYDROMORPHONE 1 MG INJ IV ×3 (02:37→11:14)
[2020-07-03 02:38] LABS: Add Manual Diff / Slide Review NO; Basophils Absolute Auto 0 /uL (0-100); Basophils Percent Auto 0.3 % (0-2); Eosinophils Absolute Auto 100 /uL (0-450); Hematocrit 37.2 % (41-53); Hemoglobin 12.3 g/dL (13.5-17.5); Lymphocytes Absolute Auto 900 /uL (1100-4500); Lymphocytes Percent Auto 6.9 % (25-40); Mean Corpuscular Hemoglobin 27.9 PG (26-34); Mean Corpuscular Volume 84.8 fL (80-100); Monocytes Absolute Auto 2500 /uL (0-900); Monocytes Percent Auto 18.4 % (3-14); Neutrophils Absolute Auto 10100 /uL (1500-7000); Neutrophils Percent Auto 73.4 % (50-75); Platelet Count 259 X10^3/uL (150-400); Red Blood Cell Count 4.39 X10^6/uL (4.5-5.9); Red Cell Distribution Width 14.4 % (11.6-14.8); White Blood Cell Count 13.8 X10^3/uL (4.5-11.0)
[2020-07-03 02:45] LABS: Alanine Aminotransferase 43 IU/L (<50); Albumin 3.9 g/dL (3.5-5.0); Albumin Globulin Ratio 1.1 (1.0-2.8); Alkaline Phosphatase 140 U/L (38-126); Aspartate Aminotransferase 30 IU/L (17-59); BUN Creatinine Ratio 42.6 (6-22); Bilirubin Total 0.5 mg/dL (0.2-1.3); Blood Urea Nitrogen 29 mg/dL (9-20); Calcium 9.2 mg/dL (8.4-10.2); Carbon Dioxide 26 mmol/L (22-32); Chloride 100 mmol/L (98-107); Estimated Glomerular Filt Rate > 60.0 mL/min (>60); Globulin 3.6 g/dL (1.7-4.1); Glucose 147 mg/dL (80-110); HEMOLYSIS < 15 (0-50); Potassium 3.5 mmol/L (3.4-5.1); Sodium 135 mmol/L (137-145); Total Protein 7.5 g/dL (6.3-8.2)
[2020-07-03 02:55] LABS: Erythrocyte Sedimentation Rate 59 MM/HR (0-15)
[2020-07-03 02:58] LABS: Procalcitonin 0.35 ng/mL (<0.5)
--- NOTE | 2020-07-03 02:59 | PC.NURSE ---
History of bilateral venous stasis ulcers over left medial and lateral mallieoli, removed dressing there that he presented with,both lesions had slight erythema and scant yellowish drainage,both irrigated with sterile saline and telfa,kerlix and coban applied as dressing after,tolerated well.
[2020-07-03 03:15] LABS: C-Reactive Protein Quant 45.4 mg/dL (<1.0)
[2020-07-03 03:42] LABS: COVID19 -Nasal RAPID Negative (Negative)
[2020-07-03 04:57] LABS: INR 1.3 (0.9-1.3)
[2020-07-03 05:00] LABS: PTT Partial Thromboplastin Tim 31 SECONDS (26.4-36.2)
[2020-07-03 10:28] LABS: Bacteria Urine None Seen; RBC Urine None Seen (0-5/HPF)
[2020-07-03 10:40] LABS: Culture Indicated Urine Specimen Cultured; WBC Urine 5-10/HPF (0-5/HPF)
--- NOTE | 2020-07-03 13:15 | PC.NURSE ---
Introduced self and role to patient. Confirmed care plan with patient for MRI at 1530 and to premedicate prior to MRI. Patient confirmed understanding of plan. Patient and provided with ice water and reoriented to call light.
--- NOTE | 2020-07-03 14:48 | PC.NURSE ---
Patient left ED through front doors. Located patient outside hospital entrance and asked patient if he would come back into ED. Patient states No I am done. I have worked in [employer] for a long time and I know how this works. It's always going to be someone ahead of me. I told myself if it reaches 3:30pm and I'm not seen then I am out of here. Educated patient on current time of 1445 and plan for MRI at 1530 and addressed patients concerns of wait with education of MRI policy in ED. Patient confirmed understanding of all this but stated I am still not coming back. Patient refused to sign AMA papers. Provider notified and aware. Daphney ODOM met patient outside to remove IV.
[2020-07-03 18:03] LABS: Acinetobacter baumannii Not Detected (Not Detect); Candida albicans Not Detected (Not Detect); Candida glabrata Not Detected (Not Detect); Candida krusei Not Detected (Not Detect); Candida parapsilosis Not Detected (Not Detect); Candida tropicalis Not Detected (Not Detect); E. coli Not Detected (Not Detect); Enterobacter cloacae complex Not Detected (Not Detect); Enterobacteriaceae species Not Detected (Not Detect); Enterococcus species Not Detected (Not Detect); Haemophilus influenzae Not Detected (Not Detect); KPC (carbapenem-resist gene) Not Detected (Not Detect); Listeria monocytogenes Not Detected (Not Detect); Methicillin-resistant gene Not Detected (Not Detect); Neisseria meningitidis Not Detected (Not Detect); Proteus species Not Detected (Not Detect); Pseudomonas aeruginosa Not Detected (Not Detect); Serratia marcescens Not Detected (Not Detect); Staphylococcus species Detected (Not Detect); Streptococcus agalactiae (Gr B Not Detected (Not Detect); Streptococcus pneumonia Not Detected (Not Detect); Streptococcus pyogenes (Gr A) Not Detected (Not Detect); Streptococcus species Not Detected (Not Detect); Vancomycin-rest genes A/B Not Detected (Not Detect)
== END 2020-07-03 14:45 | disposition left against medical advice (07) ==
PROVIDERS: Emergency Medicine; Emergency Provider Emergency Medicine; Family Provider Family Medicine; PCP Student in an Organized Health Care Education/Training Program
DX: I87.2 Venous insufficiency (chronic) (peripheral) (principal); L08.9 Local infection of the skin and subcutaneous tissue, unspecified; R01.1 Cardiac murmur, unspecified; R60.0 Localized edema; I83.003 Varicose veins of unspecified lower extremity with ulcer of ankle; L97.309 Non-pressure chronic ulcer of unspecified ankle with unspecified severity
CPT/HCPCS: 36415; 70491; 71260; 80053; 81003; 81015; 84145; 85025; 85610; 85651; 85730; 86140; 87040; 87086; 87150; 87186; 87205; 87635; 99284; J1100; J1170; J1885; Q9967

== ENCOUNTER 2020-07-03 19:21 | Emergency (ER) | payer OTHER, SELFPAY ==
--- NOTE | 2020-07-03 19:28 | DI.MRI.S_ITS ---
PROCEDURE: MR CERVICAL SPINE W CON INDICATIONS: pain, abnormal findings on CT, request per Rads TECHNIQUE: Noncontrast sagittal T1 spin echo and T2 fast spin echo, sagittal STIR, foraminal oblique sagittal T2 fast spin echo, axial gradient echo or T2 fast spin echo through the cervical spine. After the administration of contrast, axial and sagittal T1 spin echo with fat saturation through the cervical spine. COMPARISON: [facility], CT, CT CHEST W CON, 07/03/2020, 2:24. [facility], CT, CT SOFT TISSUE NECK W CON, 07/03/2020, 2:24. [facility], CT, CT CERVICAL SPINE WO CON, 06/28/2020, 19:12. FINDINGS: Image quality: Fair. Alignment and curvature: There is normal bony alignment. Marrow: Marrow is normal in overall signal, without suspicious enhancement. Spinal cord: Visualized spinal cord has normal size and signal. No cerebellar tonsillar herniation. No abnormal intramedullary enhancement. Mild posterior disc protrusions most pronounced at C4-C5 and C5-C6. Paraspinous soft tissues: Abnormal T2 hyperintensity in the left posterior paraspinal musculature, (5/12). This measures approximately 5.3 x 3.8 x 3.1 cm. There is mild intrinsic T1 hypointensity. This does not extend to the central canal. IMPRESSION: Abnormal T2 signal within the left posterior paraspinal musculature. Suspect a edema rather than neoplasm on this noncontrast examination. Etiology is uncertain. Mild disc disease in the cervical spine. Dictated by: Joseph Hua M.D. on 07/03/2020 at 21:03 Approved by: Joseph Hua M.D. on 07/03/2020 at 21:12
[2020-07-03 19:30] VITALS: BP 169/78; PULSE 101; RESP 17; TEMP 37.3; O2SAT 96; BMI 31.1
[2020-07-03] MEDS: HYDROMORPHONE 1 MG INJ IV (19:56)
[2020-07-03 20:06] LABS: Lactate (Lactic Acid) 1.2 mmol/L (0.7-2.1)
[2020-07-03 20:21] LABS: Procalcitonin 0.37 ng/mL (<0.5)
--- NOTE | 2020-07-03 20:31 | ED_ITS ---
HPI - Recheck/Abnormal Lab/Rx General Chief Complaint: Recheck/Abnormal Lab/Rx Stated Complaint: POSTIVE BLOOD INFECTION SOMEWHERE Time Seen by Provider: 07/03/20 19:28 Source: family Mode of arrival: Ambulatory Limitations: no limitations History of Present Illness HPI narrative: 70M daily smoker returns to the ED after leaving AMA earlier today. Please see Dr. Streeter's note as well. On 06/28 with a complaint bilateral neck pain going on for a few days, CT without contrast was administered and no significant findings were noted. He has had progressively worsening neck pain and left arm weakness with decreased sensation. He noticed that it was worsening when he was attempting to chop wood. Earlier today he mentioned that he had been having chills but still denies any fever, vomiting, chest pain or shortness of breath. He had a very thorough exam IV contrast that noted thickening of the left posterior musculature with dimensions 3.2 x 1.8 cm and suggestion of possible infection versus subacute hemorrhage. Full lab evaluation noting abnormal inflammatory markers and MRI were ordered. Patient and of leave before the MRI could be completed. He was called at home with blood cultures were found to be positive for Staphylococcus. complaint: needs IV antibiotics Initial visit (ago): hour(s) Initial visit for: other Returns today for: persistent/worsening pain related to initial visit Symptoms since prior visit: no new symptoms Context: called for abnormal lab result and called for positive culture result Associated symptoms: chills Related Data Home Medications Medication Instructions Recorded Confirmed ibuprofen #0 10/18/17 06/30/20 Previous Rx's Medication Instructions Recorded diazepam 5 mg tablet 5 mg PO BID PRN #10 tab 06/30/20 diclofenac sodium 1 % topical gel 2 g TOPICAL QID #100 g 06/30/20 hydrocodone 5 mg-acetaminophen 325 1 tab PO Q4-6H PRN #20 tab 06/30/20 mg tablet naproxen 500 mg tablet 500 mg PO BID PRN #30 tab 06/30/20 Allergies Allergy/AdvReac Type Severity Reaction Status Date / Time No Known Drug Allergies Allergy Verified 06/30/20 16:34 Review of Systems Constitutional Constitutional: Reports chills, Denies fatigue, Denies fever(s), Denies frequent falls, Denies lethargy and Denies weakness Eyes Eyes: Denies change in vision, Denies eye discharge, Denies irritation and Denies loss of vision ENT Ears, Nose, Mouth, and Throat: Denies change in voice, Denies dizziness, Reports neck pain, Denies sore throat and Denies throat swelling Cardiovascular Cardiovascular: Denies chest pain, Denies irregular heart rhythm, Denies lightheadedness, Denies palpitations, Denies dyspnea, Denies dyspnea on exertion and Denies orthopnea Respiratory Respiratory: Denies cough, Denies dyspnea, Denies dyspnea on exertion and Denies wheezing Gastrointestinal Gastrointestinal: Denies abdominal pain, Denies change in bowel habits, Denies diarrhea, Denies nausea and Denies vomiting Musculoskeletal Musculoskeletal: Reports neck pain and Denies numbness Integumentary/Breasts Skin/Breast: Denies pruritus, Denies erythema, Denies rash and Denies wounds Neurologic Neurologic: Denies behavioral changes, Denies confusion, Denies dizziness, Denies frequent falls, Denies loss of vision, Denies numbness and Denies weakness Psychiatric Psychiatric: Denies anxiety, Denies behavioral changes, Denies confusion, Denies depression, Denies homicidal ideation and Denies suicidal ideation Endocrine Endocrine: Denies fatigue, Denies flushing and Denies palpitations Hematologic/Lymphatic Hematologic/Lymphatic: Denies easy bruising Allergic/Immunologic Allergic/Immunologic: Denies urticaria, Denies throat swelling and Denies wheezing Patient History Medical History Diplopia Edema of lower leg due to peripheral venous insufficiency Heart murmur TIA (transient ischemic attack) Social History Smoking Status: Current every day smoker Tobacco: How many years used: 50 quit status: not considering quitting second hand exposure: Yes (Childhood ) alcohol intake: current (~4 glasses hard alcohol per week ) substance use type: does not use Smoking Status: Current every day smoker tobacco type: cigarettes alcohol intake frequency: a few times a week Substance Use Type: does not use Exam Narrative Exam Narrative: GENERAL: [70] year old patient appears stated age. And a bit started on. He clearly is in pain with motion HEAD: Atraumatic. Normocephalic. EYES: Pupils equal round and reactive. Extraocular motions intact. No scleral icterus. No injection or drainage. ENT: Nose without bleeding, purulent drainage. Throat without erythema, tonsillar hypertrophy or exudate. Airway patent. NECK: Trachea midline. Pain with palpation in left-sided paraspinal musculature, no redness, warmth or induration. CARDIOVASCULAR: Regular rate and rhythm without murmurs, gallops, or rubs. RESPIRATORY: Clear to auscultation. Breath sounds equal bilaterally. No wheezes, rales, or rhonchi. GASTROINTESTINAL: Abdomen soft, non-tender, nondistended. EXTREMITIES: No edema or joint tenderness. BACK: Nontender without deformity or crepitance. No flank tenderness. NEURO: AOx3. As noted earlier, he has decreased sensation to fine touch in the C8-T1 distribution on left greater than right. 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 in decreased resistance to adduction of left upper extremity SKIN: No rash or erythema of visible areas Initial Vital Signs Initial Vital Signs: Vital Signs Temperature 99.2 F 07/03/20 19:30 Pulse Rate 101 H 07/03/20 19:30 Respiratory Rate 17 07/03/20 19:30 Blood Pressure 169/78 H 07/03/20 19:30 Pulse Oximetry 96 07/03/20 19:30 Course Orders Ordered: ED Orders 07/03/20 19:28 MR cervical spine w con Stat 07/03/20 19:45 Lactate (Lactic Acid) Stat Procalcitonin Stat Sodium Chloride (Normal Saline 0.9%) 1,000 mls @ 125 mls/hr IV CONT BELINDA Last Infusion: 07/04/20 00:00 Dose: 0 mls/hr Documented by: Admin: 07/03/20 20:55 Dose: 125 mls/hr Documented by: KBROTEM Discontinued Medications Hydromorphone HCl (Hydromorphone 1 Mg Inj) 1 mg IV NOW ONE Stop: 07/03/20 19:53 Last Admin: 07/03/20 19:56 Dose: 1 mg Documented by: KGALLAG Hydromorphone HCl (Hydromorphone 0.5 Mg Inj) 0.5 mg IV NOW ONE Stop: 07/03/20 22:40 Last Admin: 07/03/20 22:44 Dose: 0.5 mg Documented by: RMARTIN Hydromorphone HCl (Hydromorphone 0.5 Mg Inj) 0.5 mg IV NOW ONE Stop: 07/04/20 00:02 Last Admin: 07/04/20 00:04 Dose: 0.5 mg Documented by: TREVOR Vancomycin HCl/Dextrose (Vancomycin) 2,000 mg in 400 mls @ 200 mls/hr IV NOW ONE Stop: 07/03/20 22:55 Last Infusion: 07/03/20 23:46 Dose: 0 mls/hr Documented by: Admin: 07/03/20 21:02 Dose: 200 mls/hr Documented by: MARIA DOLORES Nicotine (Nicotine 21 Mg Patch) 21 mg TOP NOW ONE Stop: 07/03/20 21:01 Last Admin: 07/03/20 21:02 Dose: 21 mg Documented by: MARIA DOLORES Consultations Consultation #1: Upon receipt of MRI, noting ring-enhancing lesion with neurologic findings a call was placed to the [facility] physician. She initially spoke with Neurosurgery at [place] but given lack of spinal cord or bony involvement they admitted patient to hospitalist (Dr. Lockwood at [place]) who likely consult Interventional Radiology. Patient and his understand the diagnosis, the need for transfer and are in complete agreement with the plan Vital Signs Vital signs: Vital Signs - 8 hr 07/03/20 19:30 07/03/20 23:45 Temperature 99.2 F 98.1 F Pulse Rate 101 H 105 H Respiratory Rate 17 20 Blood Pressure 169/78 H 155/72 H Pulse Oximetry 96 92 MDM - Recheck/Abnormal Lab/Rx Lab Data Labs: Lab Results 07/03/20 07/03/20 Range/Units 19:45 19:45 Lactate 1.2 (0.7-2.1) mmol/L Procalcitonin 0.37 (<0.5) ng/mL Imaging Data MRI Cervical: Radiologist's Impression: [address] [id number] Resonance ReportAddendum Patient: Christopher Frazier AMR#: [id number]: 9Acct:[id number]/Sex: 70 / MDate of Service: 07/03/20Loc: EDAccession Number: [id number] Procedure: MR cervical spine w con Ordering Provider: Tej Jorge D.O. ADDENDUMThis report includes an Addendum and supersedes previous reports for this exam. PROCEDURE: MR CERVICAL SPINE W CON INDICATIONS: pain, abnormal findings on CT, request per Rads TECHNIQUE: Noncontrast sagittal T1 spin echo and T2 fast spin echo, sagittal STIR, foraminal oblique sagittal T2 fast spin echo, axial gradient echo or T2 fast spin echo through the cervical spine. After the administration of contrast, axial and sagittal T1 spin echo with fat saturation through the cervical spine. COMPARISON: [facility], CT, CT CHEST W CON, 07/03/2020, 2:24. [facility], CT, CT SOFT TISSUE NECK W CON, 07/03/2020, 2:24. [facility], CT, CT CERVICAL SPINE WO CON, 06/28/2020, 19:12. FINDINGS: Image quality: Fair. Alignment and curvature: There is normal bony alignment. Marrow: Marrow is normal in overall signal, without suspicious enhancement. Spinal cord: Visualized spinal cord has normal size and signal. No cerebellar tonsillar herniation. No abnormal intramedullary enhancement. Mild posterior disc protrusions most pronounced at C4-C5 and C5-C6. Paraspinous soft tissues: Abnormal T2 hyperintensity in the left posterior paraspinal musculature, (5/12). This measures approximately 5.3 x 3.8 x 3.1 cm. There is mild intrinsic T1 hypointensity. This does not extend to the central canal. IMPRESSION: Abnormal T2 signal within the left posterior paraspinal musculature. Suspect a edema rather than neoplasm on this noncontrast examination. Etiology is uncertain. Mild disc disease in the cervical spine. Dictated by: Joseph Hua M.D. on 07/03/2020 at 21:03 Approved by: Joseph Hua M.D. on 07/03/2020 at 21:12 ADDENDUM: Dictation error. Abnormal T2 signal within the left posterior paraspinal musculature. Suspect a edema or infectious/inflammatory etiology rather than neoplasm on this non contrast e xamination. Etiology is uncertain. No central enhancement. Peripheral enhancement. 10 cc ProHance IV contrast administered. Exam findings were discussed with Tej Jorge. Abnormality could also be evaluated with targeted ultrasound. Dictated by: Joseph Hua M.D. on 07/03/2020 at 21:22 Approved by: Joseph Hua M.D. on 07/03/2020 at 21:24 Addendum Dictated By:Joseph Hua MDAddledyum Signed By:Addendum Cosigned By:DD/ TD/TT: 07/03/20 PROCEDURE: MR CERVICAL SPINE W CON INDICATIONS: pain, abnormal findings on CT, request per Rads TECHNIQUE: Noncontrast sagittal T1 spin echo and T2 fast spin echo, sagittal STIR, foraminal oblique sagittal T2 fast spin echo, axial gradient echo or T2 fast spin echo through the cervical spine. After the administration of contrast, axial and sagittal T1 spin echo with fat saturation through the cervical spine. COMPARISON: [facility], CT, CT CHEST W CON, 07/03/2020, 2:24. [facility], CT, CT SOFT TISSUE NECK W CON, 07/03/2020, 2:24. [facility], CT, CT CERVICAL SPINE WO CON, 06/28/2020, 19:12. FINDINGS: Image quality: Fair. Alignment and curvature: There is normal bony alignment. Marrow: Marrow is normal in overall signal, without suspicious enhancement. Spinal cord: Visualized spinal cord has normal size and signal. No cerebellar tonsillar herniation. No abnormal intramedullary enhancement. Mild posterior disc protrusions most pronounced at C4-C5 and C5-C6. Paraspinous soft tissues: Abnormal T2 hyperintensity in the left posterior paraspinal musculature, (5/). This measures approximately 5.3 x 3.8 x 3.1 cm. There is mild intrinsic T1 hypointensity. This does not extend to the central canal. IMPRESSION: Abnormal T2 signal within the left posterior paraspinal musculature. Suspect a edema rather than neoplasm on this noncontrast examination. Etiology is uncertain. Mild disc disease in the cervical spine. Dictated by: Joseph Hua M.D. on 07/03/2020 at 21:03 Approved by: Joseph Hua M.D. on 07/03/2020 at 21:12 Discharge Plan Departure Patient Disposition: [facility] Clinical Impression: Abscess of neck, Cervical radiculopathy Prescriptions: No Action ibuprofen 800 MG tablet Qty: 0 RF: 0 hydrocodone-acetaminophen 5-325 mg tablet 1 tab PO Q4-6H PRN (Reason: pain) Qty: 20 RF: 0 diazepam 5 mg tablet 5 mg PO BID PRN (Reason: muscle spasm) Qty: 10 RF: 0 naproxen [Naprosyn] 500 mg tablet 500 mg PO BID PRN (Reason: pain) Qty: 30 RF: 0 diclofenac sodium 1 % gel 2 g topical QID Qty: 100 RF: 1 Referrals: Abraham Mendieta MD [Primary Care Provider] -
[2020-07-03] MEDS: SODIUM CHLORIDE 0.9% 1,000 ML 125 ML IV (20:55)
[2020-07-03] MEDS: VANCOMYCIN 2,000 MG/400 ML PIGGYBACK 200 MG IV (21:02)
[2020-07-03] MEDS: NICOTINE 21 MG PATCH TOP (21:02)
[2020-07-03] MEDS: HYDROMORPHONE 0.5 MG INJ IV (22:44)
--- NOTE | 2020-07-03 22:49 | PC.NURSE ---
Patient complaining of increased neck/back pain. Provider notified and order for dilaudid obtained. Patient offered repositioning to bed or recliner chair but refused and states wants to remain seated in wheelchair. Given ice pack to apply to neck and warm blanket for lap. Call light remains at side.
[2020-07-03 23:45] VITALS: BP 155/72; PULSE 105; RESP 20; TEMP 36.7; O2SAT 92
[2020-07-04] MEDS: HYDROMORPHONE 0.5 MG INJ IV (00:04)
--- NOTE | 2020-07-04 00:10 | PC.NURSE ---
Patient stating neck pain 10/10 prior to transport. Provider notified. Medicated with dilaudid (see MAR) and given new ice pack for transport along with repositioning with pillow on EMS stretcher for comfort.
== END 2020-07-04 00:15 | disposition short-term general hospital (02) ==
PROVIDERS: Emergency Provider Emergency Medicine; Family Provider Family Medicine; PCP Student in an Organized Health Care Education/Training Program
DX: M46.23 Osteomyelitis of vertebra, cervicothoracic region (principal); M54.12 Radiculopathy, cervical region; F17.210 Nicotine dependence, cigarettes, uncomplicated; I87.2 Venous insufficiency (chronic) (peripheral); L08.9 Local infection of the skin and subcutaneous tissue, unspecified; R01.1 Cardiac murmur, unspecified; R60.0 Localized edema; I83.003 Varicose veins of unspecified lower extremity with ulcer of ankle; L97.309 Non-pressure chronic ulcer of unspecified ankle with unspecified severity
CPT/HCPCS: 36415; 70491; 71260; 72142; 80053; 81003; 81015; 83605; 84145; 85025; 85610; 85651; 85730; 86140; 87040; 87086; 87150; 87186; 87205; 87635; 96365; 96366; 96375; 96376; 99282; 99284; A9579; J1100; J1170; J1885; Q9967

== ENCOUNTER → 2020-08-03 10:17 | Outpatient (CLI) | payer OTHER, SELFPAY ==
--- NOTE | 2020-08-03 10:18 | DI.US.S_ITS ---
PROCEDURE: US ABD AORTA ANEURYSM SCREEN INDICATIONS: AAA screen TECHNIQUE: Real time scanning was performed of the aorta and iliac arteries, with image documentation. COMPARISON: None. FINDINGS: Aorta: Proximal aortic diameter could not be measured due to overlying bowel gas. Mid-aorta measures 2.1 cm. Distal aortic diameter is 2.7, cm. Iliac arteries: Right common iliac artery measures 1.8 cm. Left common iliac artery measures 1.8 cm. IMPRESSION: Minimal ectasias a at the iliac arteries noted, no aneurysm found. Dictated by: Jarad Leal M.D. on 08/03/2020 at 11:27 Approved by: Jarad Leal M.D. on 08/03/2020 at 11:29
== END ==
PROVIDERS: Family Provider Family Medicine; PCP Student in an Organized Health Care Education/Training Program; Referring Provider Student in an Organized Health Care Education/Training Program; Visit Provider Student in an Organized Health Care Education/Training Program
DX: Z13.6 Encounter for screening for cardiovascular disorders (principal); Z87.891 Personal history of nicotine dependence
CPT/HCPCS: 76706

== ENCOUNTER → 2020-08-24 09:37 | Outpatient (CLI) | payer OTHER, SELFPAY ==
[2020-08-24 11:05] LABS: Erythrocyte Sedimentation Rate 3 MM/HR (0-15)
[2020-08-24 11:12] LABS: C-Reactive Protein Quant 0.7 mg/dL (<1.0)
== END ==
PROVIDERS: Family Provider Family Medicine; PCP Student in an Organized Health Care Education/Training Program; Referring Provider Internal Medicine; Visit Provider Internal Medicine
DX: L02.91 Cutaneous abscess, unspecified (principal)
CPT/HCPCS: 36415; 85651; 86140

== ENCOUNTER 2020-11-30 17:30 | Emergency (ER) | payer OTHER, SELFPAY ==
[2020-11-30 17:38] VITALS: BP 199/89; PULSE 92; RESP 16; TEMP 37; O2SAT 99; BMI 38.7
--- NOTE | 2020-11-30 17:45 | DI.MRI.S_ITS ---
PROCEDURE: MR CERVICAL SPINE WO/W CON INDICATIONS: hx of spinal abscess with r side pain similar to prior TECHNIQUE: Noncontrast sagittal T1 spin echo and T2 fast spin echo, sagittal STIR, foraminal oblique sagittal T2 fast spin echo, axial gradient echo or T2 fast spin echo through the cervical spine. After the administration of contrast, axial and sagittal T1 spin echo with fat saturation through the cervical spine. COMPARISON: [facility], CT, CT CHEST W CON, 07/03/2020, 2:24. [facility], MR, MR CERVICAL SPINE W CON, 07/03/2020, 19:35. FINDINGS: Image quality: Motion is present on several sequences, limiting areas of fine detail evaluation. Alignment and curvature: There is trace anterolisthesis of C3 on C4, C4 on C5, C6 on C7. Marrow: Marrow is normal in overall signal, without suspicious enhancement. Spinal cord: Visualized spinal cord has normal size and signal. No cerebellar tonsillar herniation. No abnormal intramedullary enhancement. Paraspinous soft tissues: There is ill-defined appearance of possible enhancement within what appears to be the supraclavicular regions bilaterally particularly on the left. There is significant motion within this region and the area is not fully included within the field of view. Discs: Moderate desiccation is present throughout the cervical spine. C2-3: Minimal disc bulge without spinal stenosis. Moderate bilateral foraminal narrowing with uncovertebral hypertrophy. Mild interval progression. C3-4: Mild disc bulge with mild spinal stenosis. Moderate to severe bilateral foraminal narrowing with uncovertebral hypertrophy, with mild interval progression. C4-5: Mild disc bulge with moderate to severe spinal stenosis. There is felt to be at least moderate bilateral foraminal narrowing with uncovertebral hypertrophy. Motion at this level obscures fine detail evaluation. C5-6: Mild disc bulge with moderate spinal stenosis. There is felt to be at least moderate bilateral foraminal narrowing with uncovertebral hypertrophy. Motion at this level obscures fine detail evaluation. C6-7: Mild disc bulge with at least mild spinal stenosis. There is likely at least mild to moderate bilateral foraminal narrowing with uncovertebral hypertrophy. Motion at this level obscures fine detail evaluation. C7-T1: Mild disc bulge with mild spinal stenosis. There is likely at least mild right foraminal narrowing. Motion at this level obscures fine detail evaluation. IMPRESSION: 1. Multilevel degenerative changes, partially obscured by motion. 2. No definitive spinal abscess is identified. However, subtle areas of enhancement may not be well appreciated secondary to motion. If concern persists, repeat study is recommended. 3. Poorly visualized area of possible increased enhancement within the supraclavicular regions bilaterally. While this could be artifactual, adenopathy or other pathology within this region cannot be definitively excluded. If this area is of region of concern, CT chest with contrast is recommended. Dictated by: Keiko Almodovar M.D. on 11/30/2020 at 17:44 Approved by: Keiko Almodovar M.D. on 11/30/2020 at 17:54
[2020-11-30 18:02] LABS: Add Manual Diff / Slide Review NO; Basophils Absolute Auto 100 /uL (0-100); Basophils Percent Auto 0.8 % (0-2); Eosinophils Absolute Auto 300 /uL (0-450); Eosinophils Percent Auto 2.4 % (2-4); Hematocrit 39.3 % (41-53); Hemoglobin 13.1 g/dL (13.5-17.5); Lymphocytes Absolute Auto 1600 /uL (1100-4500); Lymphocytes Percent Auto 14.5 % (25-40); Mean Corpuscular HGB Conc 33.2 % (30-36); Mean Corpuscular Hemoglobin 28.2 PG (26-34); Mean Corpuscular Volume 84.9 fL (80-100); Monocytes Absolute Auto 1300 /uL (0-900); Neutrophils Absolute Auto 7900 /uL (1500-7000); Neutrophils Percent Auto 70.3 % (50-75); Platelet Count 241 X10^3/uL (150-400); Red Blood Cell Count 4.63 X10^6/uL (4.5-5.9); Red Cell Distribution Width 14.4 % (11.6-14.8); White Blood Cell Count 11.2 X10^3/uL (4.5-11.0)
[2020-11-30 18:07] LABS: INR 1.1 (0.9-1.3); Prothrombin Time 12.4 SECONDS (10.1-12.7)
[2020-11-30 18:09] LABS: PTT Partial Thromboplastin Tim 33 SECONDS (26.4-36.2)
[2020-11-30 18:10] LABS: Alanine Aminotransferase 18 IU/L (<50); Albumin 4.2 g/dL (3.5-5.0); Albumin Globulin Ratio 1.3 (1.0-2.8); Alkaline Phosphatase 70 U/L (38-126); Aspartate Aminotransferase 22 IU/L (17-59); BUN Creatinine Ratio 28.9 (6-22); Bilirubin Total 0.2 mg/dL (0.2-1.3); Blood Urea Nitrogen 28 mg/dL (9-20); Calcium 9.7 mg/dL (8.4-10.2); Carbon Dioxide 27 mmol/L (22-32); Chloride 105 mmol/L (98-107); Estimated Glomerular Filt Rate > 60.0 mL/min (>60); Globulin 3.3 g/dL (1.7-4.1); Glucose 121 mg/dL (80-110); HEMOLYSIS < 15 (0-50); Lipase 31 U/L (23-300); Potassium 4.1 mmol/L (3.4-5.1); Sodium 140 mmol/L (137-145); Total Protein 7.5 g/dL (6.3-8.2)
--- NOTE | 2020-11-30 18:11 | ED.SKABFB ---
HPI - Skin/Abscess/Foreign Bdy General Chief complaint: Skin/Abscess/Foreign Body Stated complaint: Walk-in clinic refered for possible staph, neck pa Time Seen by Provider: 11/30/20 17:40 Source: patient and family Mode of arrival: Ambulatory Limitations: no limitations History of Present Illness HPI narrative: 70-year-old male former smoker with history of obesity, TIA, and former cervical spine abscess presents with his in the chief complaint of some right-sided neck pain which has been gradually worsening over the past few days. Injury, fever or chills. He states he has had gradually worsening pain in the right side of his neck which seems to radiate into his right shoulder. He occasionally has some tingling over his deltoid but denies any weakness. His pain is worse with motion and improves with rest. He denies any other neurologic symptoms such as blurred vision, trouble with speech, dizziness. He has had no systemic findings such as fever, chills nor nausea or vomiting. When seen in June he had significant left-sided neck pain and swelling and imaging and demonstrated cellulitis and abscess and he was subsequently transferred for definitive treatment. MD complaint: other Onset (ago): day(s) Tetanus up to date: yes Location: neck and RUE Severity: moderate Quality: stabbing Pain Consistency: constant Relieving factors: immobilization Exacerbating factors: movement Context: none Associated symptoms: denies other symptoms Treatments prior to arrival: none Related Data Home Medications Medication Instructions Recorded Confirmed ibuprofen #0 10/18/17 07/21/20 Previous Rx's Medication Instructions Recorded diazepam 5 mg tablet 5 mg PO BID PRN #20 tab 07/15/20 oxycodone 5 mg capsule 5 mg PO Q6H PRN #30 cap 07/16/20 diazepam [Valium] 5 mg PO BID-QID PRN #10 tab 11/30/20 gabapentin 300 mg PO BEDTIME #14 cap 11/30/20 methylprednisolone [Medrol (Tylor)] See Rx Instructions .ROUTE 11/30/20 .COMPLEX #21 ea oxycodone 5 mg PO Q4-6H PRN #10 tab 11/30/20 Allergies Allergy/AdvReac Type Severity Reaction Status Date / Time No Known Drug Allergies Allergy Verified 11/30/20 16:31 Review of Systems Constitutional Constitutional: Denies chills, Denies fatigue, Denies fever(s), Denies frequent falls, Denies lethargy and Denies weakness Eyes Eyes: Denies change in vision, Denies eye discharge, Denies irritation and Denies loss of vision ENT Ears, Nose, Mouth, and Throat: Denies change in voice, Denies dizziness, Reports neck pain, Denies sore throat and Denies throat swelling Cardiovascular Cardiovascular: Denies chest pain, Denies irregular heart rhythm, Denies lightheadedness, Denies palpitations, Denies dyspnea, Denies dyspnea on exertion and Denies orthopnea Respiratory Respiratory: Denies cough, Denies dyspnea, Denies dyspnea on exertion and Denies wheezing Gastrointestinal Gastrointestinal: Denies abdominal pain, Denies change in bowel habits, Denies diarrhea, Denies nausea and Denies vomiting Musculoskeletal Musculoskeletal: Reports neck pain, Denies numbness and Reports radiating pain into limb Integumentary/Breasts Skin/Breast: Denies pruritus, Denies erythema, Denies rash and Denies wounds Neurologic Neurologic: Denies behavioral changes, Denies confusion, Denies dizziness, Denies frequent falls, Denies loss of vision, Denies numbness and Denies weakness Psychiatric Psychiatric: Denies anxiety, Denies behavioral changes, Denies confusion, Denies depression, Denies homicidal ideation and Denies suicidal ideation Endocrine Endocrine: Denies fatigue, Denies flushing and Denies palpitations Hematologic/Lymphatic Hematologic/Lymphatic: Denies easy bruising Allergic/Immunologic Allergic/Immunologic: Denies urticaria, Denies throat swelling and Denies wheezing Patient History Medical History Abscess of neck Diplopia Edema of lower leg due to peripheral venous insufficiency Heart murmur TIA (transient ischemic attack) Social History Smoking Status: Former smoker Tobacco: How many years used: 50 quit status: not considering quitting second hand exposure: Yes (Childhood ) alcohol intake: current substance use type: does not use Smoking Status: Former smoker tobacco type: cigarettes alcohol intake frequency: a few times a week Substance Use Type: does not use Exam Narrative Exam Narrative: GENERAL: [70] year old patient appears stated age. Well-nourished, well-developed patient, in mild distress. HEAD: Atraumatic. Normocephalic. EYES: Pupils equal round and reactive. Extraocular motions intact. No scleral icterus. No injection or drainage. ENT: Nose without bleeding, purulent drainage. Throat without erythema, tonsillar hypertrophy or exudate. Airway patent. NECK: Trachea midline. Mild right-sided tenderness with palpation with radiation into right arm. Pain does increase with axial loading. No measurable weakness in bilateral upper extremities, minimal numbness over deltoid, remainder of neurovascular exam of upper extremity intact. CARDIOVASCULAR: Regular rate and rhythm without murmurs, gallops, or rubs. RESPIRATORY: Clear to auscultation. Breath sounds equal bilaterally. No wheezes, rales, or rhonchi. GASTROINTESTINAL: Abdomen soft, non-tender, nondistended. EXTREMITIES: No edema or joint tenderness. BACK: Nontender without deformity or crepitance. No flank tenderness. NEURO: AOx3. SKIN: No rash or erythema of visible areas Initial Vital Signs Initial Vital Signs: Vital Signs Temperature 98.6 F 11/30/20 17:38 Pulse Rate 92 H 11/30/20 17:38 Respiratory Rate 16 11/30/20 17:38 Blood Pressure 199/89 H 11/30/20 17:38 Pulse Oximetry 99 11/30/20 17:38 Course Orders Ordered: ED Orders 11/30/20 17:40 C-Reactive Protein Quant Stat Complete Blood Count AUTO DIFF Stat Comprehensive Metabolic Panel Stat Erythrocyte Sedimentation Rate Stat Lactate (Lactic Acid) Stat Lipase Stat Partial Thromboplastin Time Stat Procalcitonin Stat Prothrombin Time INR Stat 11/30/20 17:45 MR cervical spine wo/w con Stat 11/30/20 18:40 Blood Culture Stat Vital Signs Vital signs: Vital Signs - 8 hr 11/30/20 17:38 11/30/20 19:33 Temperature 98.6 F 98 F Pulse Rate 92 H 75 Respiratory Rate 16 22 Blood Pressure 199/89 H 185/79 H Pulse Oximetry 99 95 MDM - Skin/Abscess/Foreign Bdy Lab Data Result diagrams: 11/30/20 17:40 11/30/20 17:40 Labs: Lab Results 11/30/20 11/30/20 11/30/20 Range/Units 17:40 17:40 17:40 WBC 11.2 H (4.5-11.0) X10^3/uL RBC 4.63 (4.5-5.9) X10^6/uL Hgb 13.1 L (13.5-17.5) g/dL Hct 39.3 L (41-53) % MCV 84.9 (80-100) fL MCH 28.2 (26-34) PG MCHC 33.2 (30-36) % RDW 14.4 (11.6-14.8) % Plt Count 241 (150-400) X10^3/uL Neut % (Auto) 70.3 (50-75) % Lymph % (Auto) 14.5 L (25-40) % Doddridge % (Auto) 12.0 (3-14) % Eos % (Auto) 2.4 (2-4) % Baso % (Auto) 0.8 (0-2) % Neut # (Auto) 7900 H (7245-7075) /uL Lymph # (Auto) 1600 (5407-0827) /uL Doddridge # (Auto) 1300 H (0-900) /uL Eos # (Auto) 300 (0-450) /uL Baso # (Auto) 100 (0-100) /uL ESR (0-15) MM/HR PT 12.4 (10.1-12.7) SECONDS INR 1.1 (0.9-1.3) APTT 33 (26.4-36.2) SECONDS Sodium 140 (137-145) mmol/L Potassium 4.1 (3.4-5.1) mmol/L Chloride 105 (98-107) mmol/L Carbon Dioxide 27 (22-32) mmol/L BUN 28 H (9-20) mg/dL Creatinine 0.97 (0.66-1.25) mg/dL Estimated GFR > 60.0 (>60) mL/min BUN/Creatinine Ratio 28.9 H (6-22) Glucose 121 H (80-110) mg/dL Lactate (0.7-2.1) mmol/L Calcium 9.7 (8.4-10.2) mg/dL Total Bilirubin 0.2 (0.2-1.3) mg/dL AST 22 (17-59) IU/L ALT 18 (<50) IU/L Alkaline Phosphatase 70 (38-126) U/L C-Reactive Protein (<1.0) mg/dL Total Protein 7.5 (6.3-8.2) g/dL Albumin 4.2 (3.5-5.0) g/dL Globulin 3.3 (1.7-4.1) g/dL Albumin/Globulin Ratio 1.3 (1.0-2.8) Lipase 31 (23-300) U/L Procalcitonin 0.08 (<0.5) ng/mL 11/30/20 11/30/20 11/30/20 Range/Units 17:40 17:40 17:40 WBC (4.5-11.0) X10^3/uL RBC (4.5-5.9) X10^6/uL Hgb (13.5-17.5) g/dL Hct (41-53) % MCV (80-100) fL MCH (26-34) PG MCHC (30-36) % RDW (11.6-14.8) % Plt Count (150-400) X10^3/uL Neut % (Auto) (50-75) % Lymph % (Auto) (25-40) % Doddridge % (Auto) (3-14) % Eos % (Auto) (2-4) % Baso % (Auto) (0-2) % Neut # (Auto) (6640-9386) /uL Lymph # (Auto) (0839-9826) /uL Doddridge # (Auto) (0-900) /uL Eos # (Auto) (0-450) /uL Baso # (Auto) (0-100) /uL ESR 18 H (0-15) MM/HR PT (10.1-12.7) SECONDS INR (0.9-1.3) APTT (26.4-36.2) SECONDS Sodium (137-145) mmol/L Potassium (3.4-5.1) mmol/L Chloride (98-107) mmol/L Carbon Dioxide (22-32) mmol/L BUN (9-20) mg/dL Creatinine (0.66-1.25) mg/dL Estimated GFR (>60) mL/min BUN/Creatinine Ratio (6-22) Glucose (80-110) mg/dL Lactate 1.0 (0.7-2.1) mmol/L Calcium (8.4-10.2) mg/dL Total Bilirubin (0.2-1.3) mg/dL AST (17-59) IU/L ALT (<50) IU/L Alkaline Phosphatase (38-126) U/L C-Reactive Protein 7.3 H (<1.0) mg/dL Total Protein (6.3-8.2) g/dL Albumin (3.5-5.0) g/dL Globulin (1.7-4.1) g/dL Albumin/Globulin Ratio (1.0-2.8) Lipase (23-300) U/L Procalcitonin (<0.5) ng/mL Imaging Data Cervical MRI: Radiologist's Impression: [address] [id number] Resonance ReportSigned Patient: Christopher Frazier AMR#: [id number]: 1950cct:[id number]/Sex: 70 / MDate of Service: 11/30/20Loc: EDAccession Number: [id number] Procedure: MR cervical spine wo/w con Ordering Provider: Collins Dubon D.O. PROCEDURE: MR CERVICAL SPINE WO/W CON INDICATIONS: hx of spinal abscess with r side pain similar to prior TECHNIQUE: Noncontrast sagittal T1 spin echo and T2 fast spin echo, sagittal STIR, foraminal oblique sagittal T2 fast spin echo, axial gradient echo or T2 fast spin echo through the cervical spine. After the administration of contrast, axial and sagittal T1 spin echo with fat saturation through the cervical spine. COMPARISON: [facility], CT, CT CHEST W CON, 07/03/2020, 2:24. [facility], MR, MR CERVICAL SPINE W CON, 07/03/2020, 19:35. FINDINGS: Image quality: Motion is present on several sequences, limiting areas of fine detail evaluation. Alignment and curvature: There is trace anterolisthesis of C3 on C4, C4 on C5, C6 on C7. Marrow: Marrow is normal in overall signal, without suspicious enhancement. Spinal cord: Visualized spinal cord has normal size and signal. No cerebellar tonsillar herniation. No abnormal intramedullary enhancement. Paraspinous soft tissues: There is ill-defined appearance of possible enhancement within what appears to be the supraclavicular regions bilaterally particularly on the left. There is significant motion within this region and the area is not fully included within the field of view. Discs: Moderate desiccation is present throughout the cervical spine. C2-3: Minimal disc bulge without spinal stenosis. Moderate bilateral foraminal narrowing with uncovertebral hypertrophy. Mild interval progression. C3-4: Mild disc bulge with mild spinal stenosis. Moderate to severe bilateral foraminal narrowing with uncovertebral hypertrophy, with mild interval progression. C4-5: Mild disc bulge with moderate to severe spinal stenosis. There is felt to be at least moderate bilateral foraminal narrowing with uncovertebral hypertrophy. Motion at this level obscures fine detail evaluation. C5-6: Mild disc bulge with moderate spinal stenosis. There is felt to be at least moderate bilateral foraminal narrowing with uncovertebral hypertrophy. Motion at this level obscures fine detail evaluation. C6-7: Mild disc bulge with at least mild spinal stenosis. There is likely at least mild to moderate bilateral foraminal narrowing with uncovertebral hypertrophy. Motion at this level obscures fine detail evaluation. C7-T1: Mild disc bulge with mild spinal stenosis. There is likely at least mild right foraminal narrowing. Motion at this level obscures fine detail evaluation. IMPRESSION: 1. Multilevel degenerative changes, partially obscured by motion. 2. No definitive spinal abscess is identified. However, subtle areas of enhancement may not be well appreciated secondary to motion. If concern persists, repeat study is recommended. 3. Poorly visualized area of possible increased enhancement within the supraclavicular regions bilaterally. While this could be artifactual, adenopathy or other pathology within this region cannot be definitively excluded. If this area is of region of concern, CT chest with contrast is recommended. Dictated by: Keiko Almodovar M.D. on 11/30/2020 at 17:44 Approved by: Keiko Almodovar M.D. on 11/30/2020 at 17:54 [facility] Narrative Medical decision making narrative: Patient with neck pain and history of infection in the neck raise suspicion for a recurrence. This time he has no fever or other systemic findings. Imaging demonstrates multilevel disc bulge and some stenosis but no sign of neurosurgical emergency. Patient is awake and alert, demonstrates no red flag findings on exam such as fever or chills nor measurable weakness. This is most likely a cervical radiculopathy based on history, exam and imaging. Extensive return precautions given and questions answered to his apparent satisfaction. Discharge Plan Departure Patient Disposition: Home Clinical Impression: Cervical radiculopathy Instructions: DI for Cervical Radiculopathy Activity Restrictions/Additional Instructions: *You have been diagnosed with [cervical radiculopathy. Your history, physical exam and MRI are very reassuring and there is no evidence of abscess, however many cervical spinal disc bulges are noted.] *What to do: *Take medications as directed: Prescription sent to [facility] at your request *Follow up with your primary care provider in 2-3 days, call for an appointment. Let them know you were seen in the Emergency Department and that we ask that you be seen in follow up *Return to ER if you should have any new, worsening or concerning symptoms, such as [fever, chills, nausea, vomiting, upper extremity weakness or other bothersome symptoms] Prescriptions: New gabapentin 300 mg capsule 300 mg PO BEDTIME Qty: 14 RF: 0 diazepam [Valium] 5 mg tablet 5 mg PO BID-QID PRN (Reason: muscle spasm) Qty: 10 RF: 0 oxycodone 5 mg tablet 5 mg PO Q4-6H PRN (Reason: pain) Qty: 10 RF: 0 methylprednisolone [Medrol (Tylor)] 4 mg tablets,dose pack See Rx Instructions .ROUTE .COMPLEX Qty: 21 RF: 0 No Action ibuprofen 800 MG tablet Qty: 0 RF: 0 diazepam 5 mg tablet 5 mg PO BID PRN (Reason: muscle spasm) Qty: 20 RF: 0 oxycodone 5 mg capsule 5 mg PO Q6H PRN (Reason: pain) Qty: 30 RF: 0 Referrals: Abraham Mendieta MD [Primary Care Provider] -
[2020-11-30 18:27] LABS: Procalcitonin 0.08 ng/mL (<0.5)
[2020-11-30 18:53] LABS: C-Reactive Protein Quant 7.3 mg/dL (<1.0)
[2020-11-30 19:19] LABS: Erythrocyte Sedimentation Rate 18 MM/HR (0-15)
[2020-11-30 19:33] VITALS: BP 185/79; PULSE 75; RESP 22; TEMP 36.6; O2SAT 95
== END 2020-11-30 19:34 | disposition home or self-care (01) ==
PROVIDERS: Emergency Medicine; Emergency Provider Emergency Medicine; Family Provider Family Medicine; PCP Student in an Organized Health Care Education/Training Program
DX: M54.12 Radiculopathy, cervical region (principal)
CPT/HCPCS: 36415; 72156; 80053; 83605; 83690; 84145; 85025; 85610; 85651; 85730; 86140; 87040; 99284

== ENCOUNTER 2020-12-16 14:51 | Outpatient (RCR) | payer OTHER, SELFPAY ==
--- NOTE | 2020-12-16 15:13 | PT.OPPOC ---
Physical, Occupational & Speech Therapy At [facility] Current Diagnoses Radiculopathy, cervical region (12/16/20) Abnormal posture (12/16/20) Visit Care Team Role Provider Type Bry Dickey MD Family Provider Physician Specialty: Family Practice Address: [address] [place] [address], [facility] Email: [email or web address] Abraham Mendieta MD Attending Provider Physician Primary Care Provider Referring Provider Specialty: Internal Medicine Address: [address] [place] [address], [address], [address] Email: [email or web address] Plan Of Care PT-OP-T Assessment and Plan Start: 12/16/20 14:03 Freq: Status: Active Protocol: Document 12/16/20 16:00 AW (Rec: 12/17/20 15:12 AW [id number]) Physical Therapy Assessment Rehab Potential Rehabilitation Potential Good Evaluation Complexity Number of Personal Factors/Comorbidities 1-2 Number of Body Systems Impaired 1-2 Clinical Presentation at Evaluation Stable Impairments Impairments Functional Activities, Functional Mobility,Pain, Posture,ROM,Sensation,Soft Tissue Mobility,Strength Goals Four Impairment cervical ROM Short Term Goal (STG) Pt will improve AROM lateral flexion to 30 degrees or greater without increase in pain. STG Duration 4 weeks - January 13, 2021 Long-Term Goal (LTG) Pt will improve AROM lateral flexion to 40 degrees or greater without pain to demonstrate improved cervical stability. 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 STG Duration 4 weeks - January 13, 2021 Assessment Summary Assessment Christopher is a 70 yo man seen presenting as a low complexity evaluation with complaints of right sided neck, upper back, and upper extremity pain along with intermittent numbness in his right hand. Pt is likely predisposed to neck pain due to postural impairments including increased thoracic kyphosis, forward-held head. He reports a heavy day of yard work may have precipitated current complaints. He presents with moderately to highly dense upper traps and cervical paraspinals which may be perpetuating his complaints. Upper limb tension tests were negative. Spurlings was positive for reproduction of right sided neck pain but not shoulder pain. Pt would benefit from skilled physical therapy intervention directed at increasing pain free ROM to improve pt's ability to participate in work and driving activities. Physical Therapy Plan Frequency and Duration Frequency of Treatment 1-2 x / week Duration of Treatment 12 weeks Plan of Care Start Date 12/16/20 Plan of Care End Date 03/18/21 Therapeutic Interventions Therapeutic Interventions Home Exercise Program,Joint Mobilizations,Manual Therapy, Neuromuscular Re-education, Patient/Caregiver Education, Self-Care/Home Management,Soft Tissue Mobilization,Taping, Therapeutic Activities, Therapeutic Exercises Modalities Cold Pack/Ice Massage,Electric Stimulation,Hot Packs Next Visit Focus/Plan Next Note Type Treatment Note Next Visit Plan review HEP; STM and ther ex directed at thoracic mobility, cervical stability. Plan of Care Dates Plan of Care Start Date 12/16/20 Plan of Care End Date 03/18/21 Electronically Signed by: Fawn Melvin PT 12/17/20 [id number] Please Sign and Return: I have reviewed this Plan of Care and certify that the skilled therapy services above are required to meet the patient?s needs. Physician Signature Date Printed Name and Credentials Clinical Instructor Signature Printed Name and Credentials
--- NOTE | 2020-12-16 15:13 | PT.OIE ---
Current Diagnoses Radiculopathy, cervical region (12/16/20) Past Medical History (Last Reviewed 11/30/20 @ 21:51 by Tej Jorge DO) Abscess of neck Diplopia Edema of lower leg due to peripheral venous insufficiency Heart murmur TIA (transient ischemic attack) Visit Care Team Role Provider Type Bry Dickey MD Family Provider Physician Specialty: Family Practice Address: [address] [place] [address], [id number] Email: [email or web address] Abraham Mendieta MD Attending Provider Physician Primary Care Provider Referring Provider Specialty: Internal Medicine Address: [address] [place] [address], [address], [address] Email: [email or web address] Physical Therapy Initial Evaluation PT-OP-A Visit Information Start: 12/16/20 14:03 Freq: Status: Active Protocol: Document 12/16/20 16:00 AW (Rec: 12/16/20 17:24 AW [email or web address]) Out-Patient Physical Therapy Visit Information Visit Information Visit Type Initial Evaluation Visit Start Time 15:15 Visit Stop Time 16:00 Total Visit Minutes 45 Visit Number 1 Number of CONTROL ROOM HELPER Visits 0 Evaluation Information Evaluation Date 12/16/20 PT-OP-B Current Condition Start: 12/16/20 14:03 Freq: Status: Active Protocol: Document 12/16/20 16:00 AW (Rec: 12/16/20 14:12 AW [email or web address]) Current Condition History of Current Condition Onset Date ~1 month Current Complaints neck pain, RUE pain, R hand numbness History of Current Condition In November, pt was mowing some rough terrain and cutting back blueberries one day. That night, he began to notice neck and shoulder pain. He also complains of right interscapular pain, lateral arm and elbow pain on the right side, and intermittent numbness to right hand but is unsure of which digits. Of note, pt has history of staph infection at T2 last June. He was treated at [facility] over five days and released on IV antibiotics. Prior Treatments and Tests Hydrocodone, ibuprofen, tylenol. Hydrocodone discontinued 11/30/20 MRI: Discs: Moderate desiccation is present throughout the cervical spine. C2-3: Minimal disc bulge without spinal stenosis. Moderate bilateral foraminal narrowing with uncovertebral hypertrophy. Mild interval progression. C3- 4: Mild disc bulge with mild spinal stenosis. Moderate to severe bilateral foraminal narrowing with uncovertebral hypertrophy, with mild interval progression. C4-5: Mild disc bulge with moderate to severe spinal stenosis. There is felt to be at least moderate bilateral foraminal narrowing with uncovertebral hypertrophy. Motion at this level obscures fine detail evaluation. C5-6: Mild disc bulge with moderate spinal stenosis. There is felt to be at least moderate bilateral foraminal narrowing with uncovertebral hypertrophy. Motion at this level obscures fine detail evaluation. C6-7: Mild disc bulge with at least mild spinal stenosis. There is likely at least mild to moderate bilateral foraminal narrowing with uncovertebral hypertrophy. Motion at this level obscures fine detail evaluation. C7-T1: Mild disc bulge with mild spinal stenosis. There is likely at least mild right foraminal narrowing. Motion at this level obscures fine detail evaluation. IMPRESSION: 1. Multilevel degenerative changes, partially obscured by motion. 2. No definitive spinal abscess is identified. However, subtle areas of enhancement may not be well appreciated secondary to motion. If concern persists, repeat study is recommended. 3 . Poorly visualized area of possible increased enhancement within the supraclavicular regions bilaterally. While this could be artifactual, adenopathy or other pathology within this region cannot be definitively excluded. 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 Baseline Function- Recreation/Hobbies active and able to complete household projects with minimal pain Baseline Function- Other drives independently Current Functional Impairments (Reported) Functional Limitations- Work/School Pain limiting tolerance for head forward work Functional Limitations- Recreation/ Difficulty maintaining awkward Hobbies positioning during household work Functional Limitations- Other Increased pain limiting right rotation while driving PT-OP-C Subjective Start: 12/16/20 14:03 Freq: Status: Active Protocol: Document 12/16/20 16:00 AW (Rec: 12/16/20 17:24 AW [email or web address]) Patient Questionnaires Neck Disability Index NDI Score 22% impaired Neck Disability Index Impairment 20 to 39% Impaired (Score 10- 19) Quick Dash- Upper Extremity Quick Dash UE Score 38.6 Quick Dash UE Impairment 20 to 39% Impaired (Score 20- 39) OP-PT Pain Assessment Pain Assessment Grid Paper Pain Assessment Grid Completed Yes: scanned to EMR PT-OP-F Manual Assessment Start: 12/16/20 14:03 Freq: Status: Active Protocol: Document 12/16/20 16:00 AW (Rec: 12/17/20 14:49 AW [id number]) Manual Assessments Soft Tissue Assessment Soft Tissue Mobility Assessment Dense upper traps and LS. Irritable C3-T4 paraspinals bilaterally. Tender to palpation interscapular region bilaterally. Joint Mobility Assessment Joint Mobility Assessment On PA assessment, there is limited extesion T1-T5 PT-OP-H Neuro Start: 12/16/20 14:03 Freq: Status: Active Protocol: Document 12/16/20 16:00 AW (Rec: 12/17/20 14:49 AW [id number]) Sensation Evaluation Gross Sensation Gross Sensation Right UE Impaired Sensation Description Hyperesthesia,Numbness Dermatome Impairments C6,C7 Deep Tendon Reflex & Clonus Assessment Deep Tendon Reflex Bilateral Bicep Deep Tendon Reflex 2+ Normal PT-OP-J Posture/Palpation/Skin Start: 12/16/20 14:03 Freq: Status: Active Protocol: Document 12/16/20 16:00 AW (Rec: 12/17/20 14:49 AW [id number]) Posture Evaluation Position Sitting Evaluation View Lateral Head/C-Spine Posture Forward Head T-Spine Posture Increased Kyphosis Thorax Posture Barrel Chested Shoulder Posture (L) Forward,(R) Forward Scapula Posture (L) Protracted,(R) Protracted Arm Posture (L) Internally Rotated,(R) Internally Rotated PT-OP-K Range of Motion Start: 12/16/20 14:03 Freq: Status: Active Protocol: Document 12/16/20 16:00 AW (Rec: 12/17/20 14:49 AW [id number]) Cervical Spine Range of Motion Cervical Spine Active Degrees Testing Position Sitting Flexion 38 Extension 44 Rotation Left 47 Rotation Right 45 Lateral Flexion Left 23 Lateral Flexion Right 20 ROM Limitations Soft Tissue Tightness,Pain Shoulder Goniometric Range of Motion Shoulder Right Active Shoulder ROM WFL Yes Testing Position Sitting Flexion 150 Extension 12 Abduction 155 Left Active Shoulder ROM WFL Yes Testing Position Sitting Flexion 150 Extension 15 Abduction 160 Shoulder ROM Limitations Shoulder ROM Limitations Soft Tissue Tightness,Pain Elbow/Forearm Range of Motion Elbow/Forearm bilateral Elbow/Forearm ROM WFL Yes PT-OP-L Special Tests Start: 12/16/20 14:03 Freq: Status: Active Protocol: Document 12/16/20 16:00 AW (Rec: 12/17/20 14:49 AW [id number]) Special Tests Cervical Spine Special Tests Spurling's Test Test Results reproduces pain on right side of neck and posterior shoulder Shoulder Special Tests Drop Arm Rotator Cuff Test Results negative bilaterally Rangel Jose J Impingement Test Results negative bilaterally Neural Special Tests- Upper Body Radial Nerve Tension Test Results negative Median Nerve Tension Test Results negative right side Ulnar Nerve Tension Test Results negative right side PT-OP-M Strength Start: 12/16/20 14:03 Freq: Status: Active Protocol: Document 12/16/20 16:00 AW (Rec: 12/17/20 14:49 AW [id number]) Cervical Spine Strength Cervical Spine Manual Muscle Testing Testing Position Sitting Flexion (C1-2) 5 Normal Extension 5 Normal Rotation Left 4+ Good+ Rotation Right 4 Good Lateral Flexion Left (C3) 4+ Good+ Lateral Flexion Right (C3) 4 Good Trunk Strength Trunk Manual Muscle Testing Testing Position Sitting Flexion 5 Normal Extension 5 Normal Rotation Left 5 Normal Rotation Right 5 Normal Lateral Flexion Left 5 Normal Lateral Flexion Right 5 Normal Scapula Strength Scapula Manual Muscle Testing bilateral Elevation (C4) 5 Normal Adduction 4+ Good+ Abduction 5 Normal Depression 4+ Good+ Shoulder Strength Shoulder Manual Muscle Testing bilateral Flexion 5 Normal Extension 5 Normal Abduction (C5) 5 Normal External Rotation 5 Normal Internal Rotation 5 Normal Hand Journeyman 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/Pinch Strength Hand Dominance Hand Dominance Right PT-OP-Q Treatments Start: 12/16/20 14:03 Freq: Status: Active Protocol: Document 12/16/20 16:00 AW (Rec: 12/17/20 15:12 AW [id number]) Therapeutic Exercises Sitting Exercises cervical retraction Sitting Exercise Name cervical retraction Reps/Minutes 5 SH x 10 Comments for postural awareness scapular retraction Sitting Exercise Name scapular retraction Side bilateral Reps/Minutes 5 SH x 10 LS stretch Sitting Exercise Name LS stretch Side bilateral Reps/Minutes 30 SH x 4 UT stretch Sitting Exercise Name UT stretch Side bilateral Reps/Minutes 30 SH x 4 Manual Therapy Treatment Soft Tissue Mobilization UT, interscap, cervical paraspinals Body Location UT, interscap, cervical paraspinals Mobilization Type Myofascial Release,Sustained Pressure,Trigger Point Release Intensity/Depth Moderate Body Position Hooklying Comments UT stretch with active rotation followed by contract/ relax into slightly improved rotation Manual Traction Cervical Body Position Hooklying Reps/Duration 30 SH x 3 PT-OP-T Assessment and Plan Start: 12/16/20 14:03 Freq: Status: Active Protocol: Document 12/16/20 16:00 AW (Rec: 12/17/20 15:12 AW [id number]) Physical Therapy Assessment Rehab Potential Rehabilitation Potential Good Evaluation Complexity Number of Personal Factors/Comorbidities 1-2 Number of Body Systems Impaired 1-2 Clinical Presentation at Evaluation Stable Impairments Impairments Functional Activities, Functional Mobility,Pain, Posture,ROM,Sensation,Soft Tissue Mobility,Strength Goals Four Impairment cervical ROM Short Term Goal (STG) Pt will improve AROM lateral flexion to 30 degrees or greater without increase in pain. STG Duration 4 weeks - January 13, 2021 Golf Club Manager Goal (LTG) Pt will improve AROM lateral flexion to 40 degrees or greater without pain to demonstrate improved cervical stability. 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 STG Duration 4 weeks - January 13, 2021 Assessment Summary Assessment Christopher is a 70 yo man seen presenting as a low complexity evaluation with complaints of right sided neck, upper back, and upper extremity pain along with intermittent numbness in his right hand. Pt is likely predisposed to neck pain due to postural impairments including increased thoracic kyphosis, forward-held head. He reports a heavy day of yard work may have precipitated current complaints. He presents with moderately to highly dense upper traps and cervical paraspinals which may be perpetuating his complaints. Upper limb tension tests were negative. Spurlings was positive for reproduction of right sided neck pain but not shoulder pain. Pt would benefit from skilled physical therapy intervention directed at increasing pain free ROM to improve pt's ability to participate in work and driving activities. Physical Therapy Plan Frequency and Duration Frequency of Treatment 1-2 x / week Duration of Treatment 12 weeks Plan of Care Start Date 12/16/20 Plan of Care End Date 03/18/21 Therapeutic Interventions Therapeutic Interventions Home Exercise Program,Joint Mobilizations,Manual Therapy, Neuromuscular Re-education, Patient/Caregiver Education, Self-Care/Home Management,Soft Tissue Mobilization,Taping, Therapeutic Activities, Therapeutic Exercises Modalities Cold Pack/Ice Massage,Electric Stimulation,Hot Packs Next Visit Focus/Plan Next Note Type Treatment Note Next Visit Plan review HEP; STM and ther ex directed at thoracic mobility, cervical stability.
--- NOTE | 2020-12-23 08:47 | PT.OPDS ---
Current Diagnoses Radiculopathy, cervical region (12/16/20) Abnormal posture (12/16/20) Visit Care Team Role Provider Type Bry Dickey MD Family Provider Physician Specialty: Family Practice Address: [address] [place] [address], [id number] Email: [email or web address] Abraham Mendieta MD Attending Provider Physician Primary Care Provider Referring Provider Specialty: Internal Medicine Address: [address] [place] [address], [address] [place] [address], [address] Email: [email or web address] Visit Number Visit Number 1 Discharge Summary PT-OP-B Current Condition Start: 12/16/20 14:03 Freq: Status: Active Protocol: Document 12/16/20 16:00 AW (Rec: 12/16/20 14:12 AW [id number]) Current Condition History of Current Condition Onset Date ~1 month Current Complaints neck pain, RUE pain, R hand numbness History of Current Condition In November, pt was mowing some rough terrain and cutting back blueberries one day. That night, he began to notice neck and shoulder pain. He also complains of right interscapular pain, lateral arm and elbow pain on the right side, and intermittent numbness to right hand but is unsure of which digits. Of note, pt has history of staph infection at T2 last June. He was treated at [facility] over five days and released on IV antibiotics. Prior Treatments and Tests Hydrocodone, ibuprofen, tylenol. Hydrocodone discontinued 11/30/20 MRI: Discs: Moderate desiccation is present throughout the cervical spine. C2-3: Minimal disc bulge without spinal stenosis. Moderate bilateral foraminal narrowing with uncovertebral hypertrophy. Mild interval progression. C3- 4: Mild disc bulge with mild spinal stenosis. Moderate to severe bilateral foraminal narrowing with uncovertebral hypertrophy, with mild interval progression. C4-5: Mild disc bulge with moderate to severe spinal stenosis. There is felt to be at least moderate bilateral foraminal narrowing with uncovertebral hypertrophy. Motion at this level obscures fine detail evaluation. C5-6: Mild disc bulge with moderate spinal stenosis. There is felt to be at least moderate bilateral foraminal narrowing with uncovertebral hypertrophy. Motion at this level obscures fine detail evaluation. C6-7: Mild disc bulge with at least mild spinal stenosis. There is likely at least mild to moderate bilateral foraminal narrowing with uncovertebral hypertrophy. Motion at this level obscures fine detail evaluation. C7-T1: Mild disc bulge with mild spinal stenosis. There is likely at least mild right foraminal narrowing. Motion at this level obscures fine detail evaluation. IMPRESSION: 1. Multilevel degenerative changes, partially obscured by motion. 2. No definitive spinal abscess is identified. However, subtle areas of enhancement may not be well appreciated secondary to motion. If concern persists, repeat study is recommended. 3 . Poorly visualized area of possible increased enhancement within the supraclavicular regions bilaterally. While this could be artifactual, adenopathy or other pathology within this region cannot be definitively excluded. 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 Baseline Function- Recreation/Hobbies active and able to complete household projects with minimal pain Baseline Function- Other drives independently Current Functional Impairments (Reported) Functional Limitations- Work/School Pain limiting tolerance for head forward work Functional Limitations- Recreation/ Difficulty maintaining awkward Hobbies positioning during household work Functional Limitations- Other Increased pain limiting right rotation while driving PT-OP-C Subjective Start: 12/16/20 14:03 Freq: Status: Active Protocol: Document 12/23/20 08:45 AW (Rec: 12/23/20 08:47 AW [email or web address]) OP-PT Subjective Patient Comments Patient Comments Pt called and noted increased pain since evaluation. He cancelled all appointments. Patient Reported Progress Worse PT-OP-F Manual Assessment Start: 12/16/20 14:03 Freq: Status: Active Protocol: Document 12/16/20 16:00 AW (Rec: 12/17/20 14:49 AW [id number]) Manual Assessments Soft Tissue Assessment Soft Tissue Mobility Assessment Dense upper traps and LS. Irritable C3-T4 paraspinals bilaterally. Tender to palpation interscapular region bilaterally. Joint Mobility Assessment Joint Mobility Assessment On PA assessment, there is limited extesion T1-T5 PT-OP-H Neuro Start: 12/16/20 14:03 Freq: Status: Active Protocol: Document 12/16/20 16:00 AW (Rec: 12/17/20 14:49 AW [id number]) Sensation Evaluation Gross Sensation Gross Sensation Right UE Impaired Sensation Description Hyperesthesia,Numbness Dermatome Impairments C6,C7 Deep Tendon Reflex & Clonus Assessment Deep Tendon Reflex Bilateral Bicep Deep Tendon Reflex 2+ Normal PT-OP-J Posture/Palpation/Skin Start: 12/16/20 14:03 Freq: Status: Active Protocol: Document 12/16/20 16:00 AW (Rec: 12/17/20 14:49 AW [id number]) Posture Evaluation Position Sitting Evaluation View Lateral Head/C-Spine Posture Forward Head T-Spine Posture Increased Kyphosis Thorax Posture Barrel Chested Shoulder Posture (L) Forward,(R) Forward Scapula Posture (L) Protracted,(R) Protracted Arm Posture (L) Internally Rotated,(R) Internally Rotated PT-OP-K Range of Motion Start: 12/16/20 14:03 Freq: Status: Active Protocol: Document 12/16/20 16:00 AW (Rec: 12/17/20 14:49 AW [id number]) Cervical Spine Range of Motion Cervical Spine Active Degrees Testing Position Sitting Flexion 38 Extension 44 Rotation Left 47 Rotation Right 45 Lateral Flexion Left 23 Lateral Flexion Right 20 ROM Limitations Soft Tissue Tightness,Pain Shoulder Goniometric Range of Motion Shoulder Right Active Shoulder ROM WFL Yes Testing Position Sitting Flexion 150 Extension 12 Abduction 155 Left Active Shoulder ROM WFL Yes Testing Position Sitting Flexion 150 Extension 15 Abduction 160 Shoulder ROM Limitations Shoulder ROM Limitations Soft Tissue Tightness,Pain Elbow/Forearm Range of Motion Elbow/Forearm bilateral Elbow/Forearm ROM WFL Yes PT-OP-L Special Tests Start: 12/16/20 14:03 Freq: Status: Active Protocol: Document 12/16/20 16:00 AW (Rec: 12/17/20 14:49 AW [id number]) Special Tests Cervical Spine Special Tests Spurling's Test Test Results reproduces pain on right side of neck and posterior shoulder Shoulder Special Tests Drop Arm Rotator Cuff Test Results negative bilaterally Rangel Jose J Impingement Test Results negative bilaterally Neural Special Tests- Upper Body Radial Nerve Tension Test Results negative Median Nerve Tension Test Results negative right side Ulnar Nerve Tension Test Results negative right side PT-OP-M Strength Start: 12/16/20 14:03 Freq: Status: Active Protocol: Document 12/16/20 16:00 AW (Rec: 12/17/20 14:49 AW [id number]) Cervical Spine Strength Cervical Spine Manual Muscle Testing Testing Position Sitting Flexion (C1-2) 5 Normal Extension 5 Normal Rotation Left 4+ Good+ Rotation Right 4 Good Lateral Flexion Left (C3) 4+ Good+ Lateral Flexion Right (C3) 4 Good Trunk Strength Trunk Manual Muscle Testing Testing Position Sitting Flexion 5 Normal Extension 5 Normal Rotation Left 5 Normal Rotation Right 5 Normal Lateral Flexion Left 5 Normal Lateral Flexion Right 5 Normal Scapula Strength Scapula Manual Muscle Testing bilateral Elevation (C4) 5 Normal Adduction 4+ Good+ Abduction 5 Normal Depression 4+ Good+ Shoulder Strength Shoulder Manual Muscle Testing bilateral Flexion 5 Normal Extension 5 Normal Abduction (C5) 5 Normal External Rotation 5 Normal Internal Rotation 5 Normal Hand Security Services Manager/Pinch Strength Hand Dominance Hand Dominance Right PT-OP-T Assessment and Plan Start: 12/16/20 14:03 Freq: Status: Active Protocol: Document 12/23/20 08:45 AW (Rec: 12/23/20 08:47 AW [id number]) Physical Therapy Assessment Rehab Potential Rehabilitation Potential Good Evaluation Complexity Number of Personal Factors/Comorbidities 1-2 Number of Body Systems Impaired 1-2 Clinical Presentation at Evaluation Stable Impairments Impairments Functional Activities, Functional Mobility,Pain, Posture,ROM,Sensation,Soft Tissue Mobility,Strength Goals Four Impairment cervical ROM Short Term Goal (STG) Pt will improve AROM lateral flexion to 30 degrees or greater without increase in pain. STG Duration 4 weeks - January 13, 2021 Group Home Goal (LTG) Pt will improve AROM lateral flexion to 40 degrees or greater without pain to demonstrate improved cervical stability. 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 STG Duration 4 weeks - January 13, 2021 Physical Therapy Plan Frequency and Duration Frequency of Treatment 1-2 x / week Duration of Treatment 12 weeks Plan of Care Start Date 12/16/20 Plan of Care End Date 03/18/21 Therapeutic Interventions Therapeutic Interventions Home Exercise Program,Joint Mobilizations,Manual Therapy, Neuromuscular Re-education, Patient/Caregiver Education, Self-Care/Home Management,Soft Tissue Mobilization,Taping, Therapeutic Activities, Therapeutic Exercises Modalities Cold Pack/Ice Massage,Electric Stimulation,Hot Packs Discharge Physical Therapy Discharge Reasons Patient Request Discharge Comments Pt called five days after evaluation, stating he was in worse pain after first visit. He decided to cancel all appointments.
== END 2020-12-23 09:49 | disposition home or self-care (01) ==
LOC: PHYS 14:51
PROVIDERS: Family Provider Family Medicine; PCP Student in an Organized Health Care Education/Training Program; Referring Provider Student in an Organized Health Care Education/Training Program; Visit Provider Student in an Organized Health Care Education/Training Program
DX: M54.12 Radiculopathy, cervical region (principal); R29.3 Abnormal posture
CPT/HCPCS: 97140; 97161

== ENCOUNTER → 2021-05-19 10:14 | Outpatient (CLI) | payer OTHER, SELFPAY ==
--- NOTE | 2021-05-19 10:15 | DI.RAD.S_ITS ---
PROCEDURE: XR CHEST 2V INDICATIONS: Wheezing, SOB TECHNIQUE: 2 views of the chest were acquired. COMPARISON: [facility], , CHEST 2 VIEW, 10/18/2017, 11:12. FINDINGS: Surgical changes and devices: None. Lungs and pleura: Increased bronchovascular markings in bilateral hilar region are seen with mild bronchial wall thickening. No definite focal infiltrate. No pleural effusions or pneumothorax. Mediastinum: Mediastinal contours are normal. Heart size is normal. Bones and chest wall: No suspicious bony abnormalities. Soft tissues appear unremarkable. IMPRESSION: Suggestion of reactive airway disease such as bronchitis or asthma. No focal infiltrate, pleural effusion or pneumothorax. Dictated by: Alexandr Hartmann M.D. on 05/19/2021 at 11:07 Approved by: Alexandr Hartmann M.D. on 05/19/2021 at 11:08
[2021-05-19 10:31] LABS: Add Manual Diff / Slide Review NO; Basophils Absolute Auto 100 /uL (0-100); Basophils Percent Auto 0.9 % (0-2); Eosinophils Absolute Auto 100 /uL (0-450); Eosinophils Percent Auto 1.6 % (2-4); Hematocrit 38.7 % (41-53); Hemoglobin 12.3 g/dL (13.5-17.5); Lymphocytes Absolute Auto 1300 /uL (1100-4500); Lymphocytes Percent Auto 13.8 % (25-40); Mean Corpuscular HGB Conc 31.7 % (30-36); Mean Corpuscular Hemoglobin 25.4 PG (26-34); Mean Corpuscular Volume 80.2 fL (80-100); Monocytes Absolute Auto 1100 /uL (0-900); Monocytes Percent Auto 11.6 % (3-14); Neutrophils Absolute Auto 6500 /uL (1500-7000); Neutrophils Percent Auto 72.1 % (50-75); Platelet Count 275 X10^3/uL (150-400); Red Blood Cell Count 4.83 X10^6/uL (4.5-5.9); Red Cell Distribution Width 15.9 % (11.6-14.8); White Blood Cell Count 9.1 X10^3/uL (4.5-11.0)
[2021-05-19 10:38] LABS: Alanine Aminotransferase 21 IU/L (<50); Albumin 4.5 g/dL (3.5-5.0); Albumin Globulin Ratio 1.5 (1.0-2.8); Alkaline Phosphatase 72 U/L (38-126); Aspartate Aminotransferase 24 IU/L (17-59); BUN Creatinine Ratio 38.3 (6-22); Bilirubin Total 0.4 mg/dL (0.2-1.3); Blood Urea Nitrogen 23 mg/dL (9-20); Calcium 9.5 mg/dL (8.4-10.2); Carbon Dioxide 28 mmol/L (22-32); Chloride 101 mmol/L (98-107); Creatine Kinase 164 U/L (55-170); Estimated Glomerular Filt Rate > 60.0 mL/min (>60); Globulin 3.1 g/dL (1.7-4.1); Glucose 123 mg/dL (80-110); HEMOLYSIS < 15 (0-50); Lipase 46 U/L (23-300); Potassium 4.4 mmol/L (3.4-5.1); Sodium 139 mmol/L (137-145); Total Protein 7.6 g/dL (6.3-8.2)
[2021-05-19 10:50] LABS: NT-proBNP (BNP-Adult 18+) 251 pg/mL (<125); Troponin I 0.031 ng/mL (0.01-0.034)
[2021-05-19 10:54] LABS: CKMB % Relative Index 2.8 % (1.5-5.0); Creatine Kinase MB 4.59 ng/mL (<2.37)
== END ==
PROVIDERS: Family Provider Family Medicine; PCP Student in an Organized Health Care Education/Training Program; Referring Provider Nurse Practitioner; Visit Provider Nurse Practitioner
DX: R06.02 Shortness of breath (principal); R06.2 Wheezing
CPT/HCPCS: 36415; 71046; 80053; 82550; 82553; 83690; 83880; 84484; 85025

== ENCOUNTER → 2021-06-11 09:55 | Outpatient (CLI) | payer OTHER, SELFPAY ==
--- NOTE | 2021-06-11 10:03 | DI.RAD.S_ITS ---
PROCEDURE: XR THORACIC SPINE 3V INDICATIONS: CHRONIC PAIN TECHNIQUE: 3 views of the thoracic spine were acquired. COMPARISON: None. FINDINGS: Bones: No fractures or dislocations. No suspicious bony lesions. Twelve pairs of ribs are noted, and appear intact where visualized. Moderate degenerative disc changes noted throughout the thoracic spine. Mild facet arthropathy noted throughout the thoracic spine. Soft tissues: No paravertebral stripe thickening. IMPRESSION: 1. Multilevel degenerative disc disease. 2. Multilevel facet arthropathy. 3. No fracture. No acute osseous lesion. If symptoms and/or clinical suspicion for pathology persists, evaluation with MRI should be considered for further assessment. Dictated by: Elaine Sheth MD, PhD on 06/11/2021 at 13:00 Approved by: Elaine Sheth MD, PhD on 06/11/2021 at 13:01
== END ==
PROVIDERS: Family Provider Family Medicine; PCP Student in an Organized Health Care Education/Training Program; Referring Provider Student in an Organized Health Care Education/Training Program; Visit Provider Student in an Organized Health Care Education/Training Program
DX: M51.34 Other intervertebral disc degeneration, thoracic region; M47.814 Spondylosis without myelopathy or radiculopathy, thoracic region; G89.29 Other chronic pain
CPT/HCPCS: 72072

== ENCOUNTER → 2021-10-22 10:31 | Outpatient (CLI) | payer OTHER, SELFPAY ==
[2021-10-22 11:53] LABS: BUN Creatinine Ratio 24.1 (6-22); Blood Urea Nitrogen 19 mg/dL (9-20); Calcium 9.4 mg/dL (8.4-10.2); Carbon Dioxide 25 mmol/L (22-32); Chloride 104 mmol/L (98-107); Estimated Glomerular Filt Rate > 60.0 mL/min (>60); Glucose 118 mg/dL (80-110); HEMOLYSIS < 15 (0-50); Potassium 4.5 mmol/L (3.4-5.1); Sodium 138 mmol/L (137-145)
== END ==
PROVIDERS: Family Provider Family Medicine; PCP Student in an Organized Health Care Education/Training Program; Referring Provider Student in an Organized Health Care Education/Training Program; Visit Provider Student in an Organized Health Care Education/Training Program
DX: R25.2 Cramp and spasm (principal); T50.905A Adverse effect of unspecified drugs, medicaments and biological substances, initial encounter
CPT/HCPCS: 36415; 80048; 83735

== ENCOUNTER → 2021-11-15 08:53 | Outpatient (CLI) | payer OTHER, SELFPAY ==
--- NOTE | 2021-11-15 08:54 | DI.RAD.S_ITS ---
PROCEDURE: XR KNEE LT 3V INDICATIONS: LEFT KNEE PAIN TECHNIQUE: 3 views of the knee were acquired. COMPARISON: [facility], , KNEE 3V RIGHT, 06/25/2015, 14:24. FINDINGS: Bones: No fractures or dislocations. No suspicious bony lesions. There is moderate to severe medial and patellofemoral compartment as well as minimal to mild bilateral narrowing. Small ossification is noted overlying the tibial spine possibly related to loose body. Periarticular osteophytes are present. No erosions. Soft tissues: No joint effusion. No suspicious soft tissue calcifications. IMPRESSION: Tricompartmental arthritic change. Dictated by: Keiko Almodovar M.D. on 11/15/2021 at 13:43 Approved by: Keiko Almodovar M.D. on 11/15/2021 at 13:44
== END ==
PROVIDERS: Family Provider Family Medicine; PCP Student in an Organized Health Care Education/Training Program; Referring Provider Student in an Organized Health Care Education/Training Program; Visit Provider Student in an Organized Health Care Education/Training Program
DX: M25.562 Pain in left knee (principal)
CPT/HCPCS: 73562

== ENCOUNTER → 2022-07-12 11:08 | Outpatient (CLI) | payer OTHER, SELFPAY ==
--- NOTE | 2022-07-12 11:09 | DI.US.S_ITS ---
PROCEDURE: US CAROTID DOPPLER BI INDICATIONS: TRANSIENT ISCHEMIC ATTACK TECHNIQUE: Color and pulse Doppler interrogation was performed of both carotid systems, with image documentation and velocity measurements. COMPARISON: None. FINDINGS: Stenosis calculations are based on SRU (Society of Radiologists in Ultrasound) criteria. Right side: Brachial blood pressure: 137/72 mm Hg. Common carotid artery peak systolic velocity: 80 cm/sec. Internal carotid artery peak systolic velocity: 136 cm/sec. Internal carotid artery end diastolic velocity: 22 cm/sec. External carotid artery peak systolic velocity: 102 cm/sec. ICA/CCA peak systolic ratio: 1.7. Quinteros scale imaging description: Atheromatous plaque and calcifications are present at the carotid bulb Percent internal carotid artery stenosis: 50-69% stenosis. Vertebral artery: Flow direction is antegrade. Left side: Brachial blood pressure: 133/73 mm Hg. Common carotid artery peak systolic velocity: 97 cm/sec. Internal carotid artery peak systolic velocity: 196 cm/sec. Internal carotid artery end diastolic velocity: 39 cm/sec. External carotid artery peak systolic velocity: 139 cm/sec. ICA/CCA peak systolic ratio: 2.0. Quinteros scale imaging description: Atheromatous calcifications and plaque are present at the carotid bulb. Percent internal carotid artery stenosis: 50-69% stenosis. Vertebral artery: Flow direction is antegrade. IMPRESSION: 1. 50-69% stenosis of the bilateral internal carotid arteries. Dictated by: Daniella Fairbanks M.D. on 07/12/2022 at 12:33 Approved by: Daniella Fairbanks M.D. on 07/12/2022 at 12:37
== END ==
PROVIDERS: Family Provider Family Medicine; PCP Student in an Organized Health Care Education/Training Program; Referring Provider Student in an Organized Health Care Education/Training Program; Visit Provider Student in an Organized Health Care Education/Training Program
DX: I65.23 Occlusion and stenosis of bilateral carotid arteries; I10 Essential (primary) hypertension; H49.00 Third [oculomotor] nerve palsy, unspecified eye
CPT/HCPCS: 93880

== ENCOUNTER 2022-07-26 14:18 | Emergency (ER) | payer OTHER, SELFPAY ==
[2022-07-26 14:29] VITALS: BP 170/78; PULSE 96; RESP 20; TEMP 36.7; O2SAT 95; BMI 40.6
--- NOTE | 2022-07-26 14:39 | DI.RAD.S_ITS ---
PROCEDURE: XR CHEST 1V INDICATIONS: suspected sepsis TECHNIQUE: One view of the chest was acquired. COMPARISON: [facility], CR, XR CHEST 2V, 05/19/2021, 10:16. FINDINGS: Surgical changes and devices: None. Lungs and pleura: Lungs are clear. No pleural effusions or pneumothorax. Mediastinum: Mediastinal contours appear normal. Heart size is normal. Low lung volumes accentuate pulmonary interstitium and heart size. Bones and chest wall: No suspicious bony lesions. Overlying soft tissues appear unremarkable. IMPRESSION: No acute cardiopulmonary findings Approved by: Nik Barrera M.D. on 07/26/2022 at 15:08
[2022-07-26 15:35] LABS: Add Manual Diff / Slide Review NO; Basophils Absolute Auto 100 /uL (0-100); Basophils Percent Auto 0.8 % (0-2); Eosinophils Absolute Auto 200 /uL (0-450); Eosinophils Percent Auto 1.4 % (2-4); Hematocrit 33.9 % (41-53); Hemoglobin 10.8 g/dL (13.5-17.5); Lymphocytes Absolute Auto 1500 /uL (1100-4500); Lymphocytes Percent Auto 13.4 % (25-40); Mean Corpuscular HGB Conc 31.8 % (30-36); Mean Corpuscular Volume 78.5 fL (80-100); Monocytes Absolute Auto 1400 /uL (0-900); Monocytes Percent Auto 12.2 % (3-14); Neutrophils Absolute Auto 8100 /uL (1500-7000); Neutrophils Percent Auto 72.2 % (50-75); Platelet Count 241 X10^3/uL (150-400); Red Blood Cell Count 4.32 X10^6/uL (4.5-5.9); Red Cell Distribution Width 17.6 % (11.6-14.8); White Blood Cell Count 11.2 X10^3/uL (4.5-11.0)
[2022-07-26 15:41] LABS: INR 1.1 (0.9-1.3)
[2022-07-26 15:44] LABS: PTT Partial Thromboplastin Tim 30 SECONDS (26-36)
[2022-07-26 15:52] LABS: Lactate (Lactic Acid) 1.2 mmol/L (0.7-2.1)
[2022-07-26 15:53] LABS: Alanine Aminotransferase 23 IU/L (<50); Albumin 4.2 g/dL (3.5-5.0); Albumin Globulin Ratio 1.4 (1.0-2.8); Alkaline Phosphatase 70 U/L (38-126); Aspartate Aminotransferase 24 IU/L (17-59); BUN Creatinine Ratio 34.3 (6-22); Bilirubin Total 0.4 mg/dL (0.2-1.3); Blood Urea Nitrogen 23 mg/dL (9-20); Calcium 8.9 mg/dL (8.4-10.2); Carbon Dioxide 25 mmol/L (22-32); Chloride 104 mmol/L (98-107); Creatine Kinase 358 U/L (55-170); Estimated Glomerular Filt Rate > 60 mL/min (>60); Glucose 99 mg/dL (80-110); HEMOLYSIS < 15 (0-50); Lipase 35 U/L (23-300); Magnesium 1.9 mg/dL (1.6-2.3); Sodium 139 mmol/L (137-145); Total Protein 7.2 g/dL (6.3-8.2)
[2022-07-26 16:05] LABS: NT-proBNP (BNP-Adult 18+) 248 pg/mL (<125); Troponin I 0.026 ng/mL (0.01-0.034)
[2022-07-26 16:08] LABS: CKMB % Relative Index 1.5 % (1.5-5.0); Creatine Kinase MB 5.32 ng/mL (<2.37)
[2022-07-26 16:09] LABS: Procalcitonin 0.03 ng/mL (<0.5)
[2022-07-26 16:37] LABS: Influenza A - CEPHEID Flu A NEGATIVE (NEGATIVE); Influenza B - CEPHEID Flu B NEGATIVE (NEGATIVE); Respiratory Syncytial Virus Negative (Negative)
[2022-07-26 16:52] LABS: COVID-19 CEPHEID 4-PLEX PCR Negative (Negative)
[2022-07-26 17:12] VITALS: BP 150/66; PULSE 94; RESP 18; O2SAT 95
[2022-07-26] MEDS: ALBUTEROL/IPRATROPIUM 3 ML AMPUL INH (18:07)
[2022-07-26 18:08] VITALS: PULSE 87; RESP 18; O2SAT 94
--- NOTE | 2022-07-26 18:50 | ED.GENADULT ---
HPI - General Adult General Chief complaint: Shortness of Breath/Dyspnea Stated complaint: sent by DR leon shaikh/SOB/retaining fluid Time Seen by Provider: 07/26/22 18:00 Source: patient Mode of arrival: Wheelchair Limitations: no limitations History of Present Illness HPI narrative: Patient is a 72-year-old male who was sent over from his primary doctor's office for evaluation of shortness of breath, murmur, lower extremity edema, and abnormal breath sounds. The patient is a smoker. Does have a history of high blood pressure. Last evening had shortness of breath and was evaluated by paramedics. He received a nebulizer treatment and improved and was not transported to the emergency department at that time. He was at his primary doctor's office today. He states he is having some lower extremity swelling. He has chronic swelling in his left leg secondary to a DVT approximately 20 years ago. He is also having swelling in his right leg. He thinks that maybe it has been worsening over the past several weeks. He also states that for the past several weeks/months he is had issues with sleeping at night. This does not happen every night. He is also having dyspnea on exertion. He also describes having anxiety around these times as well. He is not had any fevers. Has had no productive cough. Denies chest pain. He has been on diuretics in the past but states that he has not tolerated these medications. He did receive a DuoNeb prior to my evaluation and he states he does feel better after that treatment. He also has been using a friend's albuterol inhaler at home Related Data Previous Rx's Medication Instructions Recorded lisinopril 20 mg tablet 20 mg PO DAILY #30 tabs 06/06/22 nifedipine 60 mg tablet,extended 60 mg PO DAILY #90 tabs 07/10/22 release albuterol sulfate 90 mcg/actuation 2 puff inhalation Q4-6H PRN 07/26/22 aerosol inhaler shortness of breath or wheezing #8.5 grams prednisone 20 mg tablet 20 mg PO DAILY 4 days #4 tabs 07/26/22 Allergies Allergy/AdvReac Type Severity Reaction Status Date / Time carvedilol AdvReac Severe Chills, Verified 07/26/22 17:38 body aches spironolactone AdvReac Intermediate Abdominal Verified 07/26/22 17:38 Pain Review of Systems Constitutional Constitutional: Reports system reviewed and no additional complaints, except as documented ENT Ears, Nose, Mouth, and Throat: Reports system reviewed and no additional complaints, except as documented Cardiovascular Cardiovascular: Reports system reviewed and no additional complaints, except as documented Respiratory Respiratory: Reports system reviewed and no additional complaints, except as documented Gastrointestinal Gastrointestinal: Reports system reviewed and no additional complaints, except as documented Integumentary/Breasts Skin/Breast: Reports system reviewed and no additional complaints, except as documented Neurologic Neurologic: Reports system reviewed and no additional complaints, except as documented Hematologic/Lymphatic On Anticoagulants: No Patient History Medical History Abscess of neck Edema of lower leg due to peripheral venous insufficiency Family history of sudden cardiac (SCD) (03/04/11) Former smoker Heart murmur TIA (transient ischemic attack) Social History Smoking Status: Former smoker Tobacco: How many years used: 50 quit status: not considering quitting second hand exposure: Yes (Childhood ) alcohol intake: current substance use type: does not use Smoking Status: Former smoker tobacco type: cigarettes alcohol intake frequency: a few times a week Substance Use Type: does not use Exam Initial Vital Signs Initial Vital Signs: Vital Signs Temperature 98.0 F 07/26/22 14:29 Pulse Rate 96 H 07/26/22 14:29 Respiratory Rate 20 07/26/22 14:29 Blood Pressure 170/78 H 07/26/22 14:29 Pulse Oximetry 95 07/26/22 14:29 Oxygen Delivery Method 07/26/22 14:29 Const General: cooperative, comfortable and No ill appearing [facility] Head: normal to inspection and normocephalic Resp Effort & Inspection: normal respiratory effort Auscultation: clear to auscultation bilaterally Cardio Rate: regular rate Rhythm: regular rhythm GI Inspection: normal to inspection Skin General: no rashes or lesions noted Neuro General: patient alert, patient awake and moves all extremities Extrem General: edema Course Orders Ordered: Discontinued Medications Albuterol/Ipratropium (Albuterol/Ipratropium 3 Ml Ampul) 3 ml INH NOW ONE Stop: 07/26/22 18:02 Last Admin: 07/26/22 18:07 Dose: 3 ml Documented By: XAVIER Prednisone (Prednisone 20 Mg Tablet) 20 mg PO NOW ONE Stop: 07/26/22 18:51 Last Admin: 07/26/22 18:59 Dose: 20 mg Documented By: SIMBA Vital Signs Vital signs: Vital Signs - 8 hr 07/26/22 14:29 07/26/22 17:12 07/26/22 18:08 Temperature 98.0 F Pulse Rate 96 H 94 H 87 Respiratory Rate 20 18 18 Blood Pressure 170/78 H 150/66 H Pulse Oximetry 95 95 94 Oxygen Delivery Method Room Air Room Air Room Air Oxygen Flow Rate 0 Fraction of Inspired Oxygen 21 Medical Decision Making Lab Data Lab results reviewed: Yes I reviewed the patient's lab results. Result diagrams: 07/26/22 15:19 07/26/22 15:19 Labs: Lab Results 07/26/22 07/26/22 07/26/22 Range/Units 15:19 15:19 15:19 WBC 11.2 H (4.5-11.0) X10^3/uL RBC 4.32 L (4.5-5.9) X10^6/uL Hgb 10.8 L (13.5-17.5) g/dL Hct 33.9 L (41-53) % MCV 78.5 L (80-100) fL MCH 25.0 L (26-34) PG MCHC 31.8 (30-36) % RDW 17.6 H (11.6-14.8) % Plt Count 241 (150-400) X10^3/uL Neut % (Auto) 72.2 (50-75) % Lymph % (Auto) 13.4 L (25-40) % [place] % (Auto) 12.2 (3-14) % Eos % (Auto) 1.4 L (2-4) % Baso % (Auto) 0.8 (0-2) % Neut # (Auto) 8100 H (1111-6224) /uL Lymph # (Auto) 1500 (1747-9314) /uL [place] # (Auto) 1400 H (0-900) /uL Eos # (Auto) 200 (0-450) /uL Baso # (Auto) 100 (0-100) /uL PT 13.0 H (10.1-12.7) SECONDS INR 1.1 (0.9-1.3) APTT 30 (26-36) SECONDS Sodium 139 (137-145) mmol/L Potassium 4.0 (3.4-5.1) mmol/L Chloride 104 (98-107) mmol/L Carbon Dioxide 25 (22-32) mmol/L BUN 23 H (9-20) mg/dL Creatinine 0.67 (0.66-1.25) mg/dL Estimated GFR > 60 (>60) mL/min BUN/Creatinine Ratio 34.3 H (6-22) Glucose 99 (80-110) mg/dL Lactate (0.7-2.1) mmol/L Calcium 8.9 (8.4-10.2) mg/dL Magnesium (1.6-2.3) mg/dL Total Bilirubin 0.4 (0.2-1.3) mg/dL AST 24 (17-59) IU/L ALT 23 (<50) IU/L Alkaline Phosphatase 70 (38-126) U/L Total Creatine Kinase 358 H (55-170) U/L CK-MB (CK-2) 5.32 H (<2.37) ng/mL CK-MB (CK-2) Rel Index 1.5 (1.5-5.0) % Troponin I 0.026 (0.01-0.034) ng/mL NT-Pro-B Natriuret Pep 248 H (<125) pg/mL Total Protein 7.2 (6.3-8.2) g/dL Albumin 4.2 (3.5-5.0) g/dL Globulin 3.0 (1.7-4.1) g/dL Albumin/Globulin Ratio 1.4 (1.0-2.8) Lipase 35 (23-300) U/L Procalcitonin 0.03 (<0.5) ng/mL SARS-CoV-2 (PCR) (Negative) Influenza A (RT-PCR) (NEGATIVE) Influenza B (RT-PCR) (NEGATIVE) RSV (PCR) (Negative) 07/26/22 07/26/22 07/26/22 Range/Units 15:19 15:19 15:50 WBC (4.5-11.0) X10^3/uL RBC (4.5-5.9) X10^6/uL Hgb (13.5-17.5) g/dL Hct (41-53) % MCV (80-100) fL MCH (26-34) PG MCHC (30-36) % RDW (11.6-14.8) % Plt Count (150-400) X10^3/uL Neut % (Auto) (50-75) % Lymph % (Auto) (25-40) % [place] % (Auto) (3-14) % Eos % (Auto) (2-4) % Baso % (Auto) (0-2) % Neut # (Auto) (0749-7560) /uL Lymph # (Auto) (9598-1930) /uL [place] # (Auto) (0-900) /uL Eos # (Auto) (0-450) /uL Baso # (Auto) (0-100) /uL PT (10.1-12.7) SECONDS INR (0.9-1.3) APTT (26-36) SECONDS Sodium (137-145) mmol/L Potassium (3.4-5.1) mmol/L Chloride (98-107) mmol/L Carbon Dioxide (22-32) mmol/L BUN (9-20) mg/dL Creatinine (0.66-1.25) mg/dL Estimated GFR (>60) mL/min BUN/Creatinine Ratio (6-22) Glucose (80-110) mg/dL Lactate 1.2 (0.7-2.1) mmol/L Calcium (8.4-10.2) mg/dL Magnesium 1.9 (1.6-2.3) mg/dL Total Bilirubin (0.2-1.3) mg/dL AST (17-59) IU/L ALT (<50) IU/L Alkaline Phosphatase (38-126) U/L Total Creatine Kinase (55-170) U/L CK-MB (CK-2) (<2.37) ng/mL CK-MB (CK-2) Rel Index (1.5-5.0) % Troponin I (0.01-0.034) ng/mL NT-Pro-B Natriuret Pep (<125) pg/mL Total Protein (6.3-8.2) g/dL Albumin (3.5-5.0) g/dL Globulin (1.7-4.1) g/dL Albumin/Globulin Ratio (1.0-2.8) Lipase (23-300) U/L Procalcitonin (<0.5) ng/mL SARS-CoV-2 (PCR) Negative (Negative) Influenza A (RT-PCR) Flu a negative (NEGATIVE) Influenza B (RT-PCR) Flu b negative (NEGATIVE) RSV (PCR) Negative (Negative) Imaging Data Chest x-ray: Radiologist's Impression: [address] [address] XRay Report Signed Patient: Christopher Frazier MR#: [id number] : 1950 Acct:[id number] Age/Sex: 72 / M Date of Service: 07/26/22 Loc: ED Accession Number: [id number] ?? Procedure: XR chest 1V Ordering Provider: Merced Burdick D.O. PROCEDURE:? XR CHEST 1V ? INDICATIONS:? suspected sepsis ? TECHNIQUE:? One view of the chest was acquired.? ? COMPARISON:? [facility], CR, XR CHEST 2V, 05/19/2021, 10:16. ? FINDINGS:? ? Surgical changes and devices:? None.? ? Lungs and pleura:? Lungs are clear.? No pleural effusions or pneumothorax.? ? Mediastinum:? Mediastinal contours appear normal.? Heart size is normal.? Low lung volumes accentuate pulmonary interstitium and heart size. ? Bones and chest wall:? No suspicious bony lesions.? Overlying soft tissues appear unremarkable.? ? IMPRESSION:? No acute cardiopulmonary findings ? ? ? Approved by: Nik Barrera M.D. on 07/26/2022 at 15:08? ECG Data Attestation: I personally reviewed and interpreted this ECG as follows: Interpretation: Sinus rhythm Rate [address] T wave changes MDM Narrative Medical decision making narrative: Patient did receive a DuoNeb prior to my evaluation he states that his breathing has improved. His BNP is unremarkable. Chest x-ray is unremarkable. He does have bilateral lower extremity edema but this does not appear to be new and potentially has been worsening over weeks/months. He is no indication for pneumonia. No indication for antibiotics. I have a higher suspicion that this is COPD rather than infection or heart failure given his smoking history. Plan will be is to discharge home with steroids. Also give him his own prescription for albuterol and a spacer. Advised that he contact his primary doctor to discuss further evaluation to include discussions about referrals to have echocardiogram and pulmonary function testing. He was given return precautions. He expressed understanding and agreement. Discharge Plan Departure Patient Disposition: Home Clinical Impression: Shortness of breath Instructions: DI for Shortness of Breath Activity Restrictions/Additional Instructions: I recommend that you contact your primary care providers office tomorrow for a follow up to discuss the indications for a echo and pulmonary function tests. Medications were sent to the pharmacy of your choice. Please take them as directed. Return to the ER for any new or worsening symptoms. Prescriptions: New prednisone 20 mg tablet 20 mg PO DAILY 4 Days Qty: 4 0RF albuterol sulfate 90 mcg/actuation HFA aerosol inhaler 2 puff inhalation Q4-6H PRN (Reason: shortness of breath or wheezing) Qty: 8.5 0RF No Action nifedipine 60 mg tablet extended release 60 mg PO DAILY Qty: 90 3RF lisinopril 20 mg tablet 20 mg PO DAILY Qty: 30 0RF Rx Instructions: Start with 1/2 tab for first week. Referrals: Abraham Mendieta MD [Primary Care Provider] - Visit Report Forms: Patient Portal/API
[2022-07-26] MEDS: predniSONE 20 MG TABLET PO (18:59)
== END 2022-07-26 19:12 | disposition home or self-care (01) ==
PROVIDERS: Emergency Medicine; Emergency Provider Emergency Medicine; Family Provider Family Medicine; PCP Student in an Organized Health Care Education/Training Program
DX: R06.02 Shortness of breath (principal); R01.1 Cardiac murmur, unspecified; R60.0 Localized edema
CPT/HCPCS: 0241U; 36415; 71045; 80053; 82550; 82553; 83605; 83690; 83735; 83880; 84145; 84484; 85025; 85610; 85730; 93005; 94640; 99284

== ENCOUNTER → 2022-08-04 06:54 | Outpatient (CLI) | payer OTHER, SELFPAY ==
[2022-08-04 08:42] LABS: Cholesterol 165 mg/dL (140-199); HDL Cholesterol 47 mg/dL (40-60); LDL Cholesterol Calculated 87 mg/dL (<100); Triglycerides 156 mg/dL (35-150)
[2022-08-04 09:10] LABS: TSH w/ Reflex to FT4 1.31 uIU/mL (0.47-4.68)
== END ==
PROVIDERS: Family Provider Family Medicine; PCP Student in an Organized Health Care Education/Training Program; Referring Provider Student in an Organized Health Care Education/Training Program; Visit Provider Student in an Organized Health Care Education/Training Program
DX: I10 Essential (primary) hypertension (principal); G45.9 Transient cerebral ischemic attack, unspecified; H49.00 Third [oculomotor] nerve palsy, unspecified eye
CPT/HCPCS: 36415; 80061; 84443

== ENCOUNTER → 2022-09-09 12:56 | Outpatient (CLI) | payer OTHER, SELFPAY ==
--- NOTE | 2022-09-09 12:57 | DI.ECHO.S_ITS ---
[facility] +---------+ : : [address] : : : : [phone] : : : : Phone: [phone]+ Echocardiogram Report + + :Name: RON DEVLNI Study Date: 09/09/2022 Height: 69 in : :[facility] ReadingLocation: Weight: 275 lb : : Gender: Male BSA: 2.4 m2 : :: 1950 Age: 72 yrs BP: 158/77 mmHg: :Reason For Study: CARDIAC MURMUR, EDEMA, SHORTNESS OF BREATH : :Ordering Physician: CONCHIS, : :LINDEN Performed By: Wendy Perry : :Referring: LINDEN BALDERRAMA : + + Interpretation Summary Left ventricular ejection fraction is estimated to be 60 +/- 5%. Grade II diastolic dysfunction The right ventricle is normal in size and function. Pulmonary artery pressures cannot be estimated because of the lack of a measurable TR jet velocity. The left atrium is moderately dilated. There is moderate aortic stenosis, progressed from mild on the last study from 2016. Procedure: A two-dimensional transthoracic echocardiogram with color flow and Doppler was performed. The study quality was technically difficult. The patient was in sinus rhythm with heart rates between 83-94 bpm during the exam. Left Ventricle: The left ventricle is borderline dilated. There is moderate concentric left ventricular hypertrophy. Left ventricular ejection fraction is estimated to be 60 +/- 5%. Grade II diastolic dysfunction. Right Ventricle: The right ventricle is normal in size and function. Atria: The left atrium is moderately dilated. The left atrium has mildly increased in size since the prior echo exam. The right atrium is mildly dilated. There is no Doppler evidence for an interatrial shunt. Mitral Valve: The mitral valve is normal in structure but abnormal in function. The mitral valve leaflets are slightly calcified. There is mild mitral stenosis. There is mild mitral regurgitation. Aortic Valve: The aortic valve is moderately calcified. There is moderate aortic stenosis. There is trace aortic regurgitation. Tricuspid Valve: The tricuspid valve is normal in structure and function. Pulmonary artery pressures cannot be estimated because of the lack of a measurable TR jet velocity. Pulmonic Valve: The pulmonic valve leaflets are thin and pliable; valve motion is normal. There is no pulmonic valvular regurgitation. Great Vessels: The ascending aorta is at the upper limits of normal in size. This is unchanged compared to the previous study. The IVC is dilated (diameter is greater than 2.1 cm) and it collapses less than 50% with a sniff. This suggests a high right atrial pressure of 15 mm Hg. Pericardium/ Pleura There is no pericardial effusion. There is no pleural effusion. MMode/2D Measurements & Calculations LVIDd: 4.6 cm LVOT diam: 2.2 cm LVIDs: 2.8 cm Ao root diam: 3.3 cm FS: 39.1 % asc Aorta Diam: 3.7 cm EPSS: 0.70 cm IVSd: 2.0 cm LVPWd: 1.5 cm LV lopez. diameter/BSA (cm/m^2): 1.9 LV sys. diameter/BSA (cm/m^2): 1.2 LA dimension: 4.5 cm RA long axis: 5.5 cm LA A2 area: 27.6 cm2 RA area: 21.0 cm2 LA A4 area: 30.7 cm2 RA vol: 68.8 ml LA length (vol): 6.1 cm RA : 29.1 ml/m2 LA vol: 117.7 ml LA vol index: 49.8 ml/m2 RVD1 (basal): 3.7 cm LVLs ap4: 7.4 cm LVLd ap2: 9.7 cm TAPSE_phl: 3.2 cm LVLs ap2: 7.4 cm Doppler Measurements & Calculations Ao V2 max: 291.0 cm/sec LVOT Max Quentin: 102.0 cm/sec Ao V2 mean: 212.0 cm/sec LV V1 max P.2 mmHg Ao max P.9 mmHg LV V1 VTI: 22.1 cm Ao mean P.0 mmHg RIVAS(I,D): 1.5 cm2 Ao V2 VTI: 57.8 cm RIVAS(V,D): 1.3 cm2 sev ratio: 0.38 RIVAS indexed to BSA (cm^2/m^2): 0.61 AI P1/2t: 356.2 msec AI dec slope: 296.0 cm/sec2 MV E max quentin: 133.0 cm/sec PA V2 max: 73.3 cm/sec MV A max quentin: 83.7 cm/sec PA V2 mean: 48.9 cm/sec MV E/A: 1.6 PA mean P.0 mmHg Med Peak E' Quentin: 9.1 cm/sec E/E' med: 14.6 Lat Peak E' Quentin: 5.9 cm/sec E/E' lat: 22.5 E/e' average: 18.6 MV dec time: 0.27 sec MVA(VTI): 2.3 cm2 MV V2 mean: 92.9 cm/sec SV(LVOT): 84.0 ml MV mean P.0 mmHg MV V2 VTI: 36.4 cm AV P1/2t-pr_phl: 357.0 msec AV VR_phl: 0.37 RIVAS(VTI)/BSA_phl: 0.62 Reading Physician:PHILLIP
== END ==
PROVIDERS: Family Provider Family Medicine; PCP Student in an Organized Health Care Education/Training Program; Referring Provider Student in an Organized Health Care Education/Training Program; Visit Provider Student in an Organized Health Care Education/Training Program
DX: I08.0 Rheumatic disorders of both mitral and aortic valves (principal); R06.02 Shortness of breath; I87.2 Venous insufficiency (chronic) (peripheral); R60.0 Localized edema; R01.1 Cardiac murmur, unspecified
CPT/HCPCS: 93306

== ENCOUNTER 2022-11-03 16:27 | Observation (INO) | payer OTHER, SELFPAY ==
[2022-11-03] VITALS (63 sets, daily range): BP systolic 152–215; BP diastolic 67–129; PULSE 101–115; RESP 20–51; TEMP 37.1–37.3; O2SAT 84–97; BMI 38.0; BMI 39.4
--- NOTE | 2022-11-03 16:45 | DI.RAD.S_ITS ---
PROCEDURE: XR CHEST 1V INDICATIONS: Shortness of breath TECHNIQUE: One view of the chest was acquired. COMPARISON: [facility], CR, XR CHEST 1V, 07/26/2022, 15:01. [facility], CR, XR CHEST 2V, 05/19/2021, 10:16. FINDINGS: Surgical changes and devices: None. Lungs and pleura: Mild right infrahilar opacity. No dense consolidation or pleural effusion. This opacity is slightly increased compared to prior. Mediastinum: Mediastinal contours appear normal. Heart size is normal. Bones and chest wall: No suspicious bony lesions. Overlying soft tissues appear unremarkable. IMPRESSION: Slightly increased right infrahilar opacity could represent atelectasis, aspiration, or early airspace disease. Consider future imaging surveillance to assess for resolution. Dictated by: Aditya Fuentes M.D. on 11/03/2022 at 17:17 Approved by: Aditya Fuentes M.D. on 11/03/2022 at 17:18
[2022-11-03 17:22] LABS: INR 1.2 (0.9-1.3); Prothrombin Time 13.3 SECONDS (10.1-12.7)
[2022-11-03 17:31] LABS: Lactate (Lactic Acid) 1.3 mmol/L (0.7-2.1)
[2022-11-03 17:32] LABS: Alanine Aminotransferase 25 IU/L (<50); Albumin 4.5 g/dL (3.5-5.0); Albumin Globulin Ratio 1.3 (1.0-2.8); Alkaline Phosphatase 89 U/L (38-126); Aspartate Aminotransferase 29 IU/L (17-59); BUN Creatinine Ratio 34.3 (6-22); Bilirubin Total 0.4 mg/dL (0.2-1.3); Blood Urea Nitrogen 23 mg/dL (9-20); Calcium 8.6 mg/dL (8.4-10.2); Carbon Dioxide 25 mmol/L (22-32); Chloride 102 mmol/L (98-107); Estimated Glomerular Filt Rate > 60 mL/min (>60); Globulin 3.4 g/dL (1.7-4.1); Glucose 103 mg/dL (80-110); HEMOLYSIS < 15 (0-50); Potassium 4.1 mmol/L (3.4-5.1); Sodium 137 mmol/L (137-145); Total Protein 7.9 g/dL (6.3-8.2)
[2022-11-03 17:37] LABS: Add Manual Diff / Slide Review NO; Basophils Absolute Auto 100 /uL (0-100); Basophils Percent Auto 0.9 % (0-2); Eosinophils Absolute Auto 100 /uL (0-450); Eosinophils Percent Auto 1.4 % (2-4); Hematocrit 38.3 % (41-53); Hemoglobin 12.5 g/dL (13.5-17.5); Lymphocytes Absolute Auto 1300 /uL (1100-4500); Lymphocytes Percent Auto 16.6 % (25-40); Mean Corpuscular HGB Conc 32.7 % (30-36); Mean Corpuscular Hemoglobin 25.4 PG (26-34); Mean Corpuscular Volume 77.7 fL (80-100); Monocytes Absolute Auto 1100 /uL (0-900); Monocytes Percent Auto 13.6 % (3-14); Neutrophils Absolute Auto 5500 /uL (1500-7000); Neutrophils Percent Auto 67.5 % (50-75); Platelet Count 271 X10^3/uL (150-400); Red Blood Cell Count 4.93 X10^6/uL (4.5-5.9); Red Cell Distribution Width 16.5 % (11.6-14.8); White Blood Cell Count 8.1 X10^3/uL (4.5-11.0)
[2022-11-03 17:44] LABS: NT-proBNP (BNP-Adult 18+) 121 pg/mL (<125)
[2022-11-03 17:53] LABS: COVID19 -Nasal RAPID Negative (Negative)
--- NOTE | 2022-11-03 18:12 | ED.GENADULT ---
HPI - General Adult General Chief complaint: Shortness of Breath/Dyspnea Stated complaint: SOB, Congestion, ABD cramps Time Seen by Provider: 11/03/22 18:04 Source: patient Mode of arrival: Wheelchair Limitations: no limitations History of Present Illness HPI narrative: Patient is a 72-year-old male. History of COPD and hypertension not on anticoagulation who arrives for a couple days of shortness of breath and congestion and abdominal cramping. No changes in urinary symptoms. He does have lower extremity swelling but this is baseline for him. He denies any fever. He has had a productive cough. Some chest pain with the cough. The abdominal cramping occurs when he is trying to cough and exhale Related Data Previous Rx's Medication Instructions Recorded lisinopril 20 mg tablet 20 mg PO DAILY #30 tabs 06/06/22 nifedipine 60 mg tablet,extended 60 mg PO DAILY #90 tabs 07/10/22 release pravastatin 20 mg tablet 20 mg PO BEDTIME #90 tabs 08/04/22 azithromycin 250 mg tablet See Rx Instructions PO .COMPLEX 5 11/03/22 days #6 tabs Allergies Allergy/AdvReac Type Severity Reaction Status Date / Time carvedilol AdvReac Severe Chills, Verified 11/03/22 16:48 body aches spironolactone AdvReac Intermediate Abdominal Verified 11/03/22 16:48 Pain Review of Systems Constitutional Constitutional: Reports system reviewed and no additional complaints, except as documented Cardiovascular Cardiovascular: Reports system reviewed and no additional complaints, except as documented Respiratory Respiratory: Reports system reviewed and no additional complaints, except as documented Gastrointestinal Gastrointestinal: Reports system reviewed and no additional complaints, except as documented Genitourinary Genitourinary: Reports system reviewed and no additional complaints, except as documented Musculoskeletal Musculoskeletal: Reports system reviewed and no additional complaints, except as documented Integumentary/Breasts Skin/Breast: Reports system reviewed and no additional complaints, except as documented Neurologic Neurologic: Reports system reviewed and no additional complaints, except as documented Hematologic/Lymphatic On Anticoagulants: No Patient History Medical History Abscess of neck Edema of lower leg due to peripheral venous insufficiency Family history of sudden cardiac (SCD) (03/04/11) Former smoker Heart murmur TIA (transient ischemic attack) Social History household members: spouse Smoking Status: Current every day smoker Tobacco: How many years used: 50 quit status: not considering quitting second hand exposure: Yes (Childhood ) alcohol intake: current substance use type: does not use Smoking Status: Former smoker tobacco type: cigarettes alcohol intake frequency: a few times a week Substance Use Type: does not use Exam Initial Vital Signs Initial Vital Signs: Vital Signs Temperature 98.8 F 11/03/22 16:37 Pulse Rate 101 H 11/03/22 16:37 Respiratory Rate 32 H 11/03/22 16:37 Blood Pressure 173/79 H 11/03/22 16:37 Pulse Oximetry 91 11/03/22 16:37 Oxygen Delivery Method Room Air 11/03/22 16:37 HENMT Head: normal to inspection and normocephalic Resp Effort & Inspection: grunting, respiratory distress and tachypneic Auscultation: diminished lung sounds and wheezes Cardio Rate: tachycardic Rhythm: regular rhythm GI Inspection: normal to inspection Skin General: no rashes or lesions noted Neuro General: patient alert and patient awake Extrem General: No edema Psych Appearance: grossly normal and well kempt Course Orders Ordered: ED Orders 11/03/22 18:22 Respiratory Panel (Film Array) Stat 11/03/22 18:52 Blood Culture Stat Acetaminophen (Acetaminophen 325 Mg Tablet) 650 mg PO Q6H PRN PRN Reason: Fever/Mild Pain (1-3) Albuterol (Albuterol 2.5 Mg/3 Ml Neb (Adult)) 2.5 mg INH [id number] PRN PRN Reason: Shortness Of Breath Albuterol/Ipratropium (Albuterol/Ipratropium 3 Ml Ampul) 3 ml INH [id number] BELINDA Enoxaparin Sodium (Enoxaparin 40 Mg/0.4 Ml Syringe) 40 mg SUBCUT DAILY BELINDA Guaifenesin/Codeine Phosphate (Codeine/Guaifenesin Liquid 5ml Udc) 10 ml PO Q6H PRN PRN Reason: Cough Last Admin: 11/04/22 00:47 Dose: 10 ml Documented By: JIGAR Azithromycin 500 mg/ Dextrose 250 mls @ 250 mls/hr IV Q24H BELINDA Last Admin: 11/04/22 00:47 Dose: 250 mls/hr Documented By: JIGAR Naloxone HCl (Naloxone 0.4 Mg/Ml Vial) 0.2 mg IV Q2MIN PRN PRN Reason: Opiate Reversal Ondansetron HCl (Ondansetron 4 Mg/2 Ml Inj) 4 mg IV Q8HR PRN PRN Reason: Nausea And Vomiting Prednisone (Prednisone 20 Mg Tablet) 40 mg PO DAILY BELINDA Discontinued Medications Albuterol/Ipratropium (Albuterol/Ipratropium 3 Ml Ampul) 3 ml INH NOW ONE Stop: 11/03/22 18:14 Last Admin: 11/03/22 18:35 Dose: 3 ml Documented By: LAMAR Albuterol/Ipratropium (Albuterol/Ipratropium 3 Ml Ampul) 3 ml INH NOW ONE Stop: 11/03/22 19:11 Last Admin: 11/03/22 19:40 Dose: 3 ml Documented By: VIVEK Albuterol/Ipratropium (Albuterol/Ipratropium 3 Ml Ampul) 3 ml INH NOW ONE Stop: 11/03/22 19:11 Last Admin: 11/03/22 19:40 Dose: 3 ml Documented By: VIVEK Cyclobenzaprine HCl (Cyclobenzaprine 10 Mg Tablet) 10 mg PO NOW ONE Stop: 11/03/22 20:36 Last Admin: 11/03/22 20:55 Dose: 10 mg Documented By: AB Methylprednisolone (Methylprednisolone 125 Mg/2 Ml Vial) 125 mg IV NOW ONE Stop: 11/03/22 19:11 Last Admin: 11/03/22 19:35 Dose: 125 mg Documented By: SKYLAR Vital Signs Vital signs: Vital Signs - 8 hr 11/03/22 18:45 11/03/22 18:46 11/03/22 18:46 Pulse Rate 109 H 109 H Respiratory Rate 40 H 28 H Blood Pressure 204/129 H Pulse Oximetry 91 Oxygen Delivery Method Nasal Cannula Oxygen Flow Rate 3 Fraction of Inspired Oxygen 11/03/22 18:50 11/03/22 18:55 11/03/22 19:00 Pulse Rate 104 H 112 H 107 H Respiratory Rate 25 H 51 H Blood Pressure Pulse Oximetry 92 94 Oxygen Delivery Method Nasal Cannula Nasal Cannula Oxygen Flow Rate 3 3 Fraction of Inspired Oxygen 11/03/22 19:05 11/03/22 19:10 11/03/22 19:15 Pulse Rate 105 H 106 H 104 H Respiratory Rate Blood Pressure Pulse Oximetry 95 94 93 Oxygen Delivery Method Nasal Cannula Nasal Cannula Nasal Cannula Oxygen Flow Rate 3 3 3 Fraction of Inspired Oxygen 11/03/22 19:20 11/03/22 19:25 11/03/22 19:30 Pulse Rate 114 H 107 H 112 H Respiratory Rate 30 H 35 H Blood Pressure Pulse Oximetry 90 L 93 Oxygen Delivery Method Nasal Cannula Nasal Cannula Oxygen Flow Rate 3 3 Fraction of Inspired Oxygen 11/03/22 19:35 11/03/22 19:40 11/03/22 19:40 Pulse Rate 110 H 108 H 109 H Respiratory Rate 23 24 31 H Blood Pressure Pulse Oximetry 94 93 95 Oxygen Delivery Method Nasal Cannula Nasal Cannula Nasal Cannula Oxygen Flow Rate 3 3 3 Fraction of Inspired Oxygen 32 11/03/22 19:45 11/03/22 19:50 11/03/22 19:55 Pulse Rate 107 H 108 H 106 H Respiratory Rate 20 29 H 26 H Blood Pressure Pulse Oximetry 94 94 93 Oxygen Delivery Method Nasal Cannula Nasal Cannula Nasal Cannula Oxygen Flow Rate 3 3 3 Fraction of Inspired Oxygen 11/03/22 20:00 11/03/22 20:05 11/03/22 20:10 Pulse Rate 108 H 105 H 108 H Respiratory Rate 21 22 26 H Blood Pressure Pulse Oximetry 93 94 97 Oxygen Delivery Method Nasal Cannula Nasal Cannula Nasal Cannula Oxygen Flow Rate 3 3 3 Fraction of Inspired Oxygen 11/03/22 20:15 11/03/22 20:20 11/03/22 20:25 Pulse Rate 109 H 107 H 109 H Respiratory Rate 30 H 28 H Blood Pressure Pulse Oximetry 93 96 97 Oxygen Delivery Method Nasal Cannula Nasal Cannula Nasal Cannula Oxygen Flow Rate 3 3 3 Fraction of Inspired Oxygen 11/03/22 20:30 11/03/22 20:35 11/03/22 20:40 Pulse Rate 112 H 108 H 109 H Respiratory Rate Blood Pressure Pulse Oximetry 90 L 93 92 Oxygen Delivery Method Nasal Cannula Nasal Cannula Nasal Cannula Oxygen Flow Rate 3 3 3 Fraction of Inspired Oxygen 11/03/22 20:45 11/03/22 20:50 11/03/22 20:50 Pulse Rate 111 H 112 H Respiratory Rate Blood Pressure 158/75 H Pulse Oximetry 90 L 91 Oxygen Delivery Method Nasal Cannula Nasal Cannula Oxygen Flow Rate 3 3 Fraction of Inspired Oxygen 11/03/22 20:55 11/03/22 20:55 11/03/22 21:00 Pulse Rate 109 H Respiratory Rate Blood Pressure 171/82 H 152/70 H Pulse Oximetry 91 Oxygen Delivery Method Nasal Cannula Oxygen Flow Rate 3 Fraction of Inspired Oxygen 11/03/22 21:00 11/03/22 21:05 11/03/22 21:05 Pulse Rate 111 H 108 H Respiratory Rate Blood Pressure 161/72 H Pulse Oximetry 90 L 93 Oxygen Delivery Method Nasal Cannula Nasal Cannula Oxygen Flow Rate 3 3 Fraction of Inspired Oxygen 11/03/22 21:11 11/03/22 21:11 11/03/22 21:15 Pulse Rate 106 H 109 H Respiratory Rate Blood Pressure 153/70 H Pulse Oximetry 95 91 Oxygen Delivery Method Nasal Cannula Nasal Cannula Oxygen Flow Rate 3 3 Fraction of Inspired Oxygen 11/03/22 21:16 11/03/22 21:16 11/03/22 21:20 Pulse Rate 109 H Respiratory Rate Blood Pressure 166/73 H 174/72 H Pulse Oximetry 91 Oxygen Delivery Method Nasal Cannula Oxygen Flow Rate 3 Fraction of Inspired Oxygen 11/03/22 21:20 11/03/22 21:26 11/03/22 21:26 Pulse Rate 107 H 111 H Respiratory Rate Blood Pressure 171/70 H Pulse Oximetry 95 93 Oxygen Delivery Method Nasal Cannula Nasal Cannula Oxygen Flow Rate 3 3 Fraction of Inspired Oxygen 11/03/22 21:30 11/03/22 21:30 11/03/22 21:35 Pulse Rate 109 H Respiratory Rate Blood Pressure 166/75 H 165/77 H Pulse Oximetry 93 Oxygen Delivery Method Nasal Cannula Oxygen Flow Rate 3 Fraction of Inspired Oxygen 11/03/22 21:35 11/03/22 21:40 11/03/22 21:40 Pulse Rate 108 H 104 H Respiratory Rate Blood Pressure 158/70 H Pulse Oximetry 94 94 Oxygen Delivery Method Nasal Cannula Nasal Cannula Oxygen Flow Rate 3 3 Fraction of Inspired Oxygen 11/03/22 21:45 11/03/22 21:45 11/03/22 21:50 Pulse Rate 105 H 112 H Respiratory Rate Blood Pressure 156/67 H Pulse Oximetry 94 92 Oxygen Delivery Method Nasal Cannula Nasal Cannula Oxygen Flow Rate 3 3 Fraction of Inspired Oxygen 11/03/22 21:50 Pulse Rate Respiratory Rate Blood Pressure 164/76 H Pulse Oximetry Oxygen Delivery Method Oxygen Flow Rate Fraction of Inspired Oxygen Medical Decision Making Medical Records Medical records reviewed: Yes I reviewed the patient's medical records. Lab Data Lab results reviewed: Yes I reviewed the patient's lab results. 11/03/22 16:45 11/03/22 16:45 Labs: Lab Results 11/03/22 11/03/22 11/03/22 Range/Units 16:45 16:45 16:45 WBC 8.1 (4.5-11.0) X10^3/uL RBC 4.93 (4.5-5.9) X10^6/uL Hgb 12.5 L (13.5-17.5) g/dL Hct 38.3 L (41-53) % MCV 77.7 L (80-100) fL MCH 25.4 L (26-34) PG MCHC 32.7 (30-36) % RDW 16.5 H (11.6-14.8) % Plt Count 271 (150-400) X10^3/uL Neut % (Auto) 67.5 (50-75) % Lymph % (Auto) 16.6 L (25-40) % [place] % (Auto) 13.6 (3-14) % Eos % (Auto) 1.4 L (2-4) % Baso % (Auto) 0.9 (0-2) % Neut # (Auto) 5500 (0269-1702) /uL Lymph # (Auto) 1300 (1452-5437) /uL [place] # (Auto) 1100 H (0-900) /uL Eos # (Auto) 100 (0-450) /uL Baso # (Auto) 100 (0-100) /uL PT 13.3 H (10.1-12.7) SECONDS INR 1.2 (0.9-1.3) D-Dimer (<500) ng/ml Sodium 137 (137-145) mmol/L Potassium 4.1 (3.4-5.1) mmol/L Chloride 102 (98-107) mmol/L Carbon Dioxide 25 (22-32) mmol/L BUN 23 H (9-20) mg/dL Creatinine 0.67 (0.66-1.25) mg/dL Estimated GFR > 60 (>60) mL/min BUN/Creatinine Ratio 34.3 H (6-22) Glucose 103 (80-110) mg/dL Lactate (0.7-2.1) mmol/L Calcium 8.6 (8.4-10.2) mg/dL Total Bilirubin 0.4 (0.2-1.3) mg/dL AST 29 (17-59) IU/L ALT 25 (<50) IU/L Alkaline Phosphatase 89 (38-126) U/L Troponin I 0.020 (0.01-0.034) ng/mL NT-Pro-B Natriuret Pep 121 (<125) pg/mL Total Protein 7.9 (6.3-8.2) g/dL Albumin 4.5 (3.5-5.0) g/dL Globulin 3.4 (1.7-4.1) g/dL Albumin/Globulin Ratio 1.3 (1.0-2.8) Procalcitonin (<0.5) ng/mL Chlamy pneumoniae PCR (Not Detect) Adenovirus (PCR) (Not Detect) B. pertussis DNA (PCR) (Not Detecte) B.parapertussis DNA PCR (Not Detecte) Coronavirus OC43 (PCR) (Not Detect) Coronavirus HKU1 (PCR) (Not Detect) Coronavirus 229E (PCR) (Not Detect) SARS-CoV-2 (PCR) (Negative) Coronavirus NL63 (PCR) (Not Detect) Human Metapneumovir PCR (Not Detect) Influenza Type A (PCR) (Not Detect) Influenza Type B (PCR) (Not Detect) M. pneumoniae (PCR) (Not Detect) Parainfluenza 1 (PCR) (Not Detect) Parainfluenza 2 (PCR) (Not Detect) Parainfluenza 3 (PCR) (Not Detect) Parainfluenza 4 (PCR) (Not Detect) RSV (PCR) (Not Detect) Entero/Rhino (PCR) (Not Detect) 11/03/22 11/03/22 11/03/22 Range/Units 16:45 16:45 16:45 WBC (4.5-11.0) X10^3/uL RBC (4.5-5.9) X10^6/uL Hgb (13.5-17.5) g/dL Hct (41-53) % MCV (80-100) fL MCH (26-34) PG MCHC (30-36) % RDW (11.6-14.8) % Plt Count (150-400) X10^3/uL Neut % (Auto) (50-75) % Lymph % (Auto) (25-40) % [place] % (Auto) (3-14) % Eos % (Auto) (2-4) % Baso % (Auto) (0-2) % Neut # (Auto) (1217-4190) /uL Lymph # (Auto) (3549-8330) /uL [place] # (Auto) (0-900) /uL Eos # (Auto) (0-450) /uL Baso # (Auto) (0-100) /uL PT (10.1-12.7) SECONDS INR (0.9-1.3) D-Dimer 435 (<500) ng/ml Sodium (137-145) mmol/L Potassium (3.4-5.1) mmol/L Chloride (98-107) mmol/L Carbon Dioxide (22-32) mmol/L BUN (9-20) mg/dL Creatinine (0.66-1.25) mg/dL Estimated GFR (>60) mL/min BUN/Creatinine Ratio (6-22) Glucose (80-110) mg/dL Lactate 1.3 (0.7-2.1) mmol/L Calcium (8.4-10.2) mg/dL Total Bilirubin (0.2-1.3) mg/dL AST (17-59) IU/L ALT (<50) IU/L Alkaline Phosphatase (38-126) U/L Troponin I (0.01-0.034) ng/mL NT-Pro-B Natriuret Pep (<125) pg/mL Total Protein (6.3-8.2) g/dL Albumin (3.5-5.0) g/dL Globulin (1.7-4.1) g/dL Albumin/Globulin Ratio (1.0-2.8) Procalcitonin 0.04 (<0.5) ng/mL Chlamy pneumoniae PCR (Not Detect) Adenovirus (PCR) (Not Detect) B. pertussis DNA (PCR) (Not Detecte) B.parapertussis DNA PCR (Not Detecte) Coronavirus OC43 (PCR) (Not Detect) Coronavirus HKU1 (PCR) (Not Detect) Coronavirus 229E (PCR) (Not Detect) SARS-CoV-2 (PCR) (Negative) Coronavirus NL63 (PCR) (Not Detect) Human Metapneumovir PCR (Not Detect) Influenza Type A (PCR) (Not Detect) Influenza Type B (PCR) (Not Detect) M. pneumoniae (PCR) (Not Detect) Parainfluenza 1 (PCR) (Not Detect) Parainfluenza 2 (PCR) (Not Detect) Parainfluenza 3 (PCR) (Not Detect) Parainfluenza 4 (PCR) (Not Detect) RSV (PCR) (Not Detect) Entero/Rhino (PCR) (Not Detect) 11/03/22 11/03/22 Range/Units 17:12 18:22 WBC (4.5-11.0) X10^3/uL RBC (4.5-5.9) X10^6/uL Hgb (13.5-17.5) g/dL Hct (41-53) % MCV (80-100) fL MCH (26-34) PG MCHC (30-36) % RDW (11.6-14.8) % Plt Count (150-400) X10^3/uL Neut % (Auto) (50-75) % Lymph % (Auto) (25-40) % [place] % (Auto) (3-14) % Eos % (Auto) (2-4) % Baso % (Auto) (0-2) % Neut # (Auto) (5080-3784) /uL Lymph # (Auto) (5569-1211) /uL [place] # (Auto) (0-900) /uL Eos # (Auto) (0-450) /uL Baso # (Auto) (0-100) /uL PT (10.1-12.7) SECONDS INR (0.9-1.3) D-Dimer (<500) ng/ml Sodium (137-145) mmol/L Potassium (3.4-5.1) mmol/L Chloride (98-107) mmol/L Carbon Dioxide (22-32) mmol/L BUN (9-20) mg/dL Creatinine (0.66-1.25) mg/dL Estimated GFR (>60) mL/min BUN/Creatinine Ratio (6-22) Glucose (80-110) mg/dL Lactate (0.7-2.1) mmol/L Calcium (8.4-10.2) mg/dL Total Bilirubin (0.2-1.3) mg/dL AST (17-59) IU/L ALT (<50) IU/L Alkaline Phosphatase (38-126) U/L Troponin I (0.01-0.034) ng/mL NT-Pro-B Natriuret Pep (<125) pg/mL Total Protein (6.3-8.2) g/dL Albumin (3.5-5.0) g/dL Globulin (1.7-4.1) g/dL Albumin/Globulin Ratio (1.0-2.8) Procalcitonin (<0.5) ng/mL Chlamy pneumoniae PCR Not detected (Not Detect) Adenovirus (PCR) Not detected (Not Detect) B. pertussis DNA (PCR) Not detected (Not Detecte) B.parapertussis DNA PCR Not detected (Not Detecte) Coronavirus OC43 (PCR) Not detected (Not Detect) Coronavirus HKU1 (PCR) Not detected (Not Detect) Coronavirus 229E (PCR) Not detected (Not Detect) SARS-CoV-2 (PCR) Negative Not detected (Negative) Coronavirus NL63 (PCR) Not detected (Not Detect) Human Metapneumovir PCR Not detected (Not Detect) Influenza Type A (PCR) Not detected (Not Detect) Influenza Type B (PCR) Not detected (Not Detect) M. pneumoniae (PCR) Not detected (Not Detect) Parainfluenza 1 (PCR) Not detected (Not Detect) Parainfluenza 2 (PCR) Not detected (Not Detect) Parainfluenza 3 (PCR) Detected H (Not Detect) Parainfluenza 4 (PCR) Not detected (Not Detect) RSV (PCR) Not detected (Not Detect) Entero/Rhino (PCR) Not detected (Not Detect) Imaging Data Chest x-ray: Radiologist's Impression: PROCEDURE:? XR CHEST 1V ? INDICATIONS:? Shortness of breath ? TECHNIQUE:? One view of the chest was acquired.? ? COMPARISON:? [facility], CR, XR CHEST 1V, 07/26/2022, 15:01.? [facility], CR, XR CHEST 2V, 05/19/2021, 10:16. ? FINDINGS:? ? Surgical changes and devices:? None.? ? Lungs and pleura:? Mild right infrahilar opacity.? No dense consolidation or pleural effusion.? This opacity is slightly increased compared to prior. ? Mediastinum:? Mediastinal contours appear normal.? Heart size is normal.? ? Bones and chest wall:? No suspicious bony lesions.? Overlying soft tissues appear unremarkable.? ? IMPRESSION:? Slightly increased right infrahilar opacity could represent atelectasis, aspiration, or early airspace disease.? Consider future imaging surveillance to assess for resolution. ECG Data Attestation: I personally reviewed and interpreted this ECG as follows: Interpretation: Sinus rhythm Ventricular rate 100 Occasional PAC Normal QRS Normal QTC No ST T wave changes MDM Narrative Medical decision making narrative: Patient was in someone respiratory distress upon arrival. He did seem to improve after nebulizer treatments. The abdominal cramping is during exhalation and I suspect that it is fatigue from who is diaphragm/abdominal muscles because of how hard he has been breathing over the past couple days. He is positive for parainfluenza virus 3 which is most likely the source of his symptoms. Patient is requiring oxygen and when he is on room air he decides to the upper 80s. Given his need for oxygen as presenting symptoms he does require admission to the hospital. Discussed this with him and he expressed understanding. Discussed the case with Dr. Frey who will admit for further evaluation and treatment. Discharge Plan Departure Patient Disposition: Admitted As Inpatient Clinical Impression: Infection due to parainfluenza virus 3, Hypoxia Admit Date/Time: 11/03/22 21:55 Admit Provider: Dennis Frey
[2022-11-03 18:30] LABS: D Dimer 435 ng/ml (<500)
[2022-11-03] MEDS: ALBUTEROL/IPRATROPIUM 3 ML AMPUL INH ×3 (18:35→19:40)
[2022-11-03 18:44] LABS: Procalcitonin 0.04 ng/mL (<0.5)
[2022-11-03 19:29] LABS: Adenovirus Not Detected (Not Detect); Coronavirus 229E Not Detected (Not Detect); Coronavirus HKU1 Not Detected (Not Detect); Coronavirus NL 63 Not Detected (Not Detect); Coronavirus OC43 Not Detected (Not Detect); Human Metapneumovirus Not Detected (Not Detect); Human Rhinovirus/Enterovirus Not Detected (Not Detect); Influenza A Not Detected (Not Detect); Influenza B Not Detected (Not Detect); Parainfluenza Virus 1 Not Detected (Not Detect); SARS- CoV-2 Not Detected (Not Detecte)
[2022-11-03 19:30] LABS: B. parapertussis Not Detected (Not Detecte); Bordetella pertussis Not Detected (Not Detecte); Chlamydophila pneumoniae Not Detected (Not Detect); Mycoplasma pneumoniae Not Detected (Not Detect); Parainfluenza Virus 2 Not Detected (Not Detect); Parainfluenza Virus 3 Detected (Not Detect); Parainfluenza Virus 4 Not Detected (Not Detect); Respiratory Syncytial Virus Not Detected (Not Detect)
[2022-11-03] MEDS: methylPREDNISolone 125 MG/2 ML VIAL IV (19:35)
[2022-11-03] MEDS: CYCLOBENZAPRINE 10 MG TABLET PO (20:55)
[2022-11-04] VITALS (7 sets, daily range): BP systolic 150–163; BP diastolic 67–71; PULSE 98–112; RESP 21–29; TEMP 36.8–37.2; O2SAT 93–96
--- NOTE | 2022-11-04 00:23 | PC.NURSE ---
[id number] Patient arrived from Emergency via wheelchair. Patient on 4 liter nasal cannula, saturation 93-94%. Patient is short of breath but able to answer questions. Patient oriented to the room call light and bed. Patient states he will get up out of bed independently as he needs to when he coughs. Patient states he will not call when this happens. Patient advised that for his safety we would ask that he call for help. Patient declines. Patient is tachycardic at rest. Lungs have expiratory wheezes and are dim at the bases. Patient is a everyday smoker. Respiratory therapy is aware of patient room and orders. Wounds: There is a bandage to the left ankle/foot. Patient states he has a chronic ulcer. Patient refusing to allow RN to remove dressing or view the wound. Patient states he is the only one who cares for this wound and declines any assist. Patient has opted to sit in the recliner as he finds this the most comfortable for now. Patient assisted to the bed to try out different positions but ultimately opted for the recliner. Patient refusing bed/chair alarm. Patient is high risk for fall.
[2022-11-04] MEDS: AZITHROMYCIN 500 MG in DEXTROSE 5% IN WATER 250 ML 250 MG IV (00:47)
[2022-11-04] MEDS: CODEINE/GUAIFENESIN LIQUID 5ML UDC 10 ML PO (00:47)
--- NOTE | 2022-11-04 01:36 | P.HP_ITS ---
History of Present Illness History of Present Illness Date Patient Seen: 11/04/22 Time Patient Seen: 01:00 Chief complaint: SOB, Congestion, ABD cramps Narrative: Mr. Frazier is a 72M with PMH moderate aortic stenosis, possible CHFpEF, history of DVT remotely with chronic lower leg ulcers, active smoker, probable COPD who presents to the hospital with cough and shortness of breath. He notes frequent respiratory exacerbations where he has cough, shortness of breath, sputum production. He has seen multiple doctors who have postulated he has COPD, he has yet to be formally tested. He has been prescribed albuterol in the past, but thinks stomach cramps are possibly secondary to this medication. Over the last three days he has developed worsening cough with white phlegm, and shortness of breath. He continues to smoke. He does not use oxygen at home. He has no chest pain, no fevers/chills. In the ED workup was done, vitals notable for afebrile, heart rate 100s, respiratory rate 20s-30s, blood pressure 170s/70s, oxygen in the 80s on room air. He was placed on nasal cannula. Labs notable for WBC 8.1, hgb 12.5, plts 271, creatinine 0.67. Trop 0.20. Procal 0.04. Respiratory panel positive for parainfluenza. Chest xray with slight increased infrahilar opacity on the right read as possible airspace disease or atelectasis. He was ordered for nebs and st eroids and admitted for further treatment. [facility] Medical History Abscess of neck Edema of lower leg due to peripheral venous insufficiency Family history of sudden cardiac (SCD) (03/04/11) Former smoker Heart murmur TIA (transient ischemic attack) Social History household members: spouse Smoking Status: Current every day smoker Tobacco: How many years used: 50 quit status: not considering quitting second hand exposure: Yes (Childhood ) alcohol intake: current substance use type: does not use Meds Home Medications and Allergies Home Medications Medication Instructions Recorded Confirmed Type lisinopril 20 mg tablet 20 mg PO DAILY #30 tabs 06/06/22 06/06/22 Rx nifedipine 60 mg tablet,extended 60 mg PO DAILY #90 tabs 07/10/22 Rx release pravastatin 20 mg tablet 20 mg PO BEDTIME #90 tabs 08/04/22 Rx azithromycin 250 mg tablet See Rx Instructions PO .COMPLEX 5 11/03/22 Rx days #6 tabs Allergies Allergy/AdvReac Type Severity Reaction Status Date / Time carvedilol AdvReac Severe Chills, Verified 11/03/22 16:48 body aches spironolactone AdvReac Intermediate Abdominal Verified 11/03/22 16:48 Pain Review of Systems Review of Systems Narrative: 14 systems reviewed and negative aside from what is noted in HPI Exam Vital Signs (past 8 hours): - 11/03/22 17:50 11/03/22 17:56 11/03/22 17:59 Temperature Pulse Rate 102 H 107 H Respiratory Rate 31 H Blood Pressure Pulse Oximetry 84 L 96 95 Oxygen Delivery Method Room Air Nasal Cannula Nasal Cannula Oxygen Flow Rate 3 3 Fraction of Inspired Oxygen 11/03/22 18:00 11/03/22 18:00 11/03/22 18:15 Temperature Pulse Rate 107 H 112 H Respiratory Rate 32 H 33 H Blood Pressure 183/86 H Pulse Oximetry 95 92 Oxygen Delivery Method Nasal Cannula Nasal Cannula Oxygen Flow Rate 3 3 Fraction of Inspired Oxygen 11/03/22 18:30 11/03/22 18:30 11/03/22 18:35 Temperature Pulse Rate 102 H 108 H Respiratory Rate 27 H 24 Blood Pressure 164/75 H Pulse Oximetry 89 L 92 Oxygen Delivery Method Nasal Cannula Nasal Cannula Oxygen Flow Rate 3 3 Fraction of Inspired Oxygen 32 11/03/22 18:35 11/03/22 18:38 11/03/22 18:38 Temperature Pulse Rate 109 H 104 H Respiratory Rate 38 H Blood Pressure 215/81 H Pulse Oximetry 91 94 Oxygen Delivery Method Nasal Cannula Nasal Cannula Oxygen Flow Rate 3 3 Fraction of Inspired Oxygen 11/03/22 18:40 11/03/22 18:40 11/03/22 18:45 Temperature Pulse Rate 107 H 109 H Respiratory Rate 20 40 H Blood Pressure 211/88 H Pulse Oximetry 95 91 Oxygen Delivery Method Nasal Cannula Nasal Cannula Oxygen Flow Rate 3 3 Fraction of Inspired Oxygen 11/03/22 18:46 11/03/22 18:46 11/03/22 18:50 Temperature Pulse Rate 109 H 104 H Respiratory Rate 28 H 25 H Blood Pressure 204/129 H Pulse Oximetry Oxygen Delivery Method Oxygen Flow Rate Fraction of Inspired Oxygen 11/03/22 18:55 11/03/22 19:00 11/03/22 19:05 Temperature Pulse Rate 112 H 107 H 105 H Respiratory Rate 51 H Blood Pressure Pulse Oximetry 92 94 95 Oxygen Delivery Method Nasal Cannula Nasal Cannula Nasal Cannula Oxygen Flow Rate 3 3 3 Fraction of Inspired Oxygen 11/03/22 19:10 11/03/22 19:15 11/03/22 19:20 Temperature Pulse Rate 106 H 104 H 114 H Respiratory Rate Blood Pressure Pulse Oximetry 94 93 90 L Oxygen Delivery Method Nasal Cannula Nasal Cannula Nasal Cannula Oxygen Flow Rate 3 3 3 Fraction of Inspired Oxygen 11/03/22 19:25 11/03/22 19:30 11/03/22 19:35 Temperature Pulse Rate 107 H 112 H 110 H Respiratory Rate 30 H 35 H 23 Blood Pressure Pulse Oximetry 93 94 Oxygen Delivery Method Nasal Cannula Nasal Cannula Oxygen Flow Rate 3 3 Fraction of Inspired Oxygen 11/03/22 19:40 11/03/22 19:40 11/03/22 19:45 Temperature Pulse Rate 108 H 109 H 107 H Respiratory Rate 24 31 H 20 Blood Pressure Pulse Oximetry 93 95 94 Oxygen Delivery Method Nasal Cannula Nasal Cannula Nasal Cannula Oxygen Flow Rate 3 3 3 Fraction of Inspired Oxygen 32 11/03/22 19:50 11/03/22 19:55 11/03/22 20:00 Temperature Pulse Rate 108 H 106 H 108 H Respiratory Rate 29 H 26 H 21 Blood Pressure Pulse Oximetry 94 93 93 Oxygen Delivery Method Nasal Cannula Nasal Cannula Nasal Cannula Oxygen Flow Rate 3 3 3 Fraction of Inspired Oxygen 11/03/22 20:05 11/03/22 20:10 11/03/22 20:15 Temperature Pulse Rate 105 H 108 H 109 H Respiratory Rate 22 26 H 30 H Blood Pressure Pulse Oximetry 94 97 93 Oxygen Delivery Method Nasal Cannula Nasal Cannula Nasal Cannula Oxygen Flow Rate 3 3 3 Fraction of Inspired Oxygen 11/03/22 20:20 11/03/22 20:25 11/03/22 20:30 Temperature Pulse Rate 107 H 109 H 112 H Respiratory Rate 28 H Blood Pressure Pulse Oximetry 96 97 90 L Oxygen Delivery Method Nasal Cannula Nasal Cannula Nasal Cannula Oxygen Flow Rate 3 3 3 Fraction of Inspired Oxygen 11/03/22 20:35 11/03/22 20:40 11/03/22 20:45 Temperature Pulse Rate 108 H 109 H 111 H Respiratory Rate Blood Pressure Pulse Oximetry 93 92 90 L Oxygen Delivery Method Nasal Cannula Nasal Cannula Nasal Cannula Oxygen Flow Rate 3 3 3 Fraction of Inspired Oxygen 11/03/22 20:50 11/03/22 20:50 11/03/22 20:55 Temperature Pulse Rate 112 H 109 H Respiratory Rate Blood Pressure 158/75 H Pulse Oximetry 91 91 Oxygen Delivery Method Nasal Cannula Nasal Cannula Oxygen Flow Rate 3 3 Fraction of Inspired Oxygen 11/03/22 20:55 11/03/22 21:00 11/03/22 21:00 Temperature Pulse Rate 111 H Respiratory Rate Blood Pressure 171/82 H 152/70 H Pulse Oximetry 90 L Oxygen Delivery Method Nasal Cannula Oxygen Flow Rate 3 Fraction of Inspired Oxygen 11/03/22 21:05 11/03/22 21:05 11/03/22 21:11 Temperature Pulse Rate 108 H Respiratory Rate Blood Pressure 161/72 H 153/70 H Pulse Oximetry 93 Oxygen Delivery Method Nasal Cannula Oxygen Flow Rate 3 Fraction of Inspired Oxygen 11/03/22 21:11 11/03/22 21:15 11/03/22 21:16 Temperature Pulse Rate 106 H 109 H Respiratory Rate Blood Pressure 166/73 H Pulse Oximetry 95 91 Oxygen Delivery Method Nasal Cannula Nasal Cannula Oxygen Flow Rate 3 3 Fraction of Inspired Oxygen 11/03/22 21:16 11/03/22 21:20 11/03/22 21:20 Temperature Pulse Rate 109 H 107 H Respiratory Rate Blood Pressure 174/72 H Pulse Oximetry 91 95 Oxygen Delivery Method Nasal Cannula Nasal Cannula Oxygen Flow Rate 3 3 Fraction of Inspired Oxygen 11/03/22 21:26 11/03/22 21:26 11/03/22 21:30 Temperature Pulse Rate 111 H Respiratory Rate Blood Pressure 171/70 H 166/75 H Pulse Oximetry 93 Oxygen Delivery Method Nasal Cannula Oxygen Flow Rate 3 Fraction of Inspired Oxygen 11/03/22 21:30 11/03/22 21:35 11/03/22 21:35 Temperature Pulse Rate 109 H 108 H Respiratory Rate Blood Pressure 165/77 H Pulse Oximetry 93 94 Oxygen Delivery Method Nasal Cannula Nasal Cannula Oxygen Flow Rate 3 3 Fraction of Inspired Oxygen 11/03/22 21:40 11/03/22 21:40 11/03/22 21:45 Temperature Pulse Rate 104 H Respiratory Rate Blood Pressure 158/70 H 156/67 H Pulse Oximetry 94 Oxygen Delivery Method Nasal Cannula Oxygen Flow Rate 3 Fraction of Inspired Oxygen 11/03/22 21:45 11/03/22 21:50 11/03/22 21:50 Temperature Pulse Rate 105 H 112 H Respiratory Rate Blood Pressure 164/76 H Pulse Oximetry 94 92 Oxygen Delivery Method Nasal Cannula Nasal Cannula Oxygen Flow Rate 3 3 Fraction of Inspired Oxygen 11/03/22 22:00 11/03/22 22:01 11/03/22 22:01 Temperature Pulse Rate 107 H 109 H Respiratory Rate Blood Pressure 168/78 H Pulse Oximetry 92 93 Oxygen Delivery Method Nasal Cannula Nasal Cannula Oxygen Flow Rate 3 3 Fraction of Inspired Oxygen 11/03/22 22:05 11/03/22 22:05 11/03/22 22:11 Temperature Pulse Rate 106 H Respiratory Rate Blood Pressure 177/98 H 184/79 H Pulse Oximetry 91 Oxygen Delivery Method Nasal Cannula Oxygen Flow Rate 3 Fraction of Inspired Oxygen 11/03/22 22:11 11/03/22 22:15 11/03/22 22:16 Temperature Pulse Rate 115 H 112 H Respiratory Rate Blood Pressure 166/90 H Pulse Oximetry 93 92 Oxygen Delivery Method Nasal Cannula Nasal Cannula Oxygen Flow Rate 3 3 Fraction of Inspired Oxygen 11/03/22 22:16 11/03/22 22:21 11/03/22 22:21 Temperature Pulse Rate 112 H 112 H Respiratory Rate Blood Pressure 194/87 H Pulse Oximetry 92 91 Oxygen Delivery Method Nasal Cannula Nasal Cannula Oxygen Flow Rate 3 3 Fraction of Inspired Oxygen 11/03/22 22:25 11/03/22 22:25 11/03/22 22:30 Temperature Pulse Rate 110 H 109 H Respiratory Rate Blood Pressure 201/88 H Pulse Oximetry 93 89 L Oxygen Delivery Method Nasal Cannula Oxygen Flow Rate 3 Fraction of Inspired Oxygen 11/03/22 22:31 11/03/22 22:31 11/03/22 22:35 Temperature Pulse Rate 109 H Respiratory Rate Blood Pressure 208/86 H 197/88 H Pulse Oximetry 89 L Oxygen Delivery Method Oxygen Flow Rate Fraction of Inspired Oxygen 11/03/22 22:35 11/03/22 23:44 11/04/22 00:00 Temperature 98.9 F Pulse Rate 109 H 112 H Respiratory Rate 29 H Blood Pressure 163/71 H Pulse Oximetry 89 L 95 Oxygen Delivery Method Nasal Cannula Oxygen Flow Rate 4 Fraction of Inspired Oxygen 11/03/22 22:45 11/03/22 23:44 11/03/22 23:44 Temperature 99.1 F Pulse Rate 113 H 113 H Respiratory Rate 22 24 Blood Pressure 178/83 H Pulse Oximetry 95 95 96 Oxygen Delivery Method Nasal Cannula Nasal Cannula Oxygen Flow Rate 4 4 4 Fraction of Inspired Oxygen 36 Fraction of Inspired Oxygen 36 SaO2/FiO2 Ratio 266 Oxygen Delivery Method Nasal Cannula Oxygen Flow Rate 4 Narrative Exam Narrative: GEN: in respiratory distress HEENT: moist mucous membranes, PERRL NECK: trachea midline, no jvd PULM: wheezes bilaterally CV: 2+ systolic murmur, tachycardic ABD: soft, nontender, nondistended, no organomegaly EXT: warm, well perfuse, foot edema noted, left leg with bandage, declines further evaluation by hospital staff NEURO: awake, alert, oriented, no focal deficits noted Objective Labs 11/03/22 16:45 11/03/22 16:45 Labs: Laboratory Results - last 24 hr 11/03/22 11/03/22 11/03/22 16:45 16:45 16:45 WBC 8.1 RBC 4.93 Hgb 12.5 L Hct 38.3 L MCV 77.7 L MCH 25.4 L MCHC 32.7 RDW 16.5 H Plt Count 271 Neut % (Auto) 67.5 Lymph % (Auto) 16.6 L [place] % (Auto) 13.6 Eos % (Auto) 1.4 L Baso % (Auto) 0.9 Neut # (Auto) 5500 Lymph # (Auto) 1300 [place] # (Auto) 1100 H Eos # (Auto) 100 Baso # (Auto) 100 PT 13.3 H INR 1.2 D-Dimer Sodium 137 Potassium 4.1 Chloride 102 Carbon Dioxide 25 BUN 23 H Creatinine 0.67 Estimated GFR > 60 BUN/Creatinine Ratio 34.3 H Glucose 103 Lactate Calcium 8.6 Total Bilirubin 0.4 AST 29 ALT 25 Alkaline Phosphatase 89 Troponin I 0.020 NT-Pro-B Natriuret Pep 121 Total Protein 7.9 Albumin 4.5 Globulin 3.4 Albumin/Globulin Ratio 1.3 Procalcitonin Chlamy pneumoniae PCR Adenovirus (PCR) B. pertussis DNA (PCR) B.parapertussis DNA PCR Coronavirus OC43 (PCR) Coronavirus HKU1 (PCR) Coronavirus 229E (PCR) SARS-CoV-2 (PCR) Coronavirus NL63 (PCR) Human Metapneumovir PCR Influenza Type A (PCR) Influenza Type B (PCR) M. pneumoniae (PCR) Parainfluenza 1 (PCR) Parainfluenza 2 (PCR) Parainfluenza 3 (PCR) Parainfluenza 4 (PCR) RSV (PCR) Entero/Rhino (PCR) 11/03/22 11/03/22 11/03/22 16:45 16:45 16:45 WBC RBC Hgb Hct MCV MCH MCHC RDW Plt Count Neut % (Auto) Lymph % (Auto) [place] % (Auto) Eos % (Auto) Baso % (Auto) Neut # (Auto) Lymph # (Auto) [place] # (Auto) Eos # (Auto) Baso # (Auto) PT INR D-Dimer 435 Sodium Potassium Chloride Carbon Dioxide BUN Creatinine Estimated GFR BUN/Creatinine Ratio Glucose Lactate 1.3 Calcium Total Bilirubin AST ALT Alkaline Phosphatase Troponin I NT-Pro-B Natriuret Pep Total Protein Albumin Globulin Albumin/Globulin Ratio Procalcitonin 0.04 Chlamy pneumoniae PCR Adenovirus (PCR) B. pertussis DNA (PCR) B.parapertussis DNA PCR Coronavirus OC43 (PCR) Coronavirus HKU1 (PCR) Coronavirus 229E (PCR) SARS-CoV-2 (PCR) Coronavirus NL63 (PCR) Human Metapneumovir PCR Influenza Type A (PCR) Influenza Type B (PCR) M. pneumoniae (PCR) Parainfluenza 1 (PCR) Parainfluenza 2 (PCR) Parainfluenza 3 (PCR) Parainfluenza 4 (PCR) RSV (PCR) Entero/Rhino (PCR) 11/03/22 11/03/22 17:12 18:22 WBC RBC Hgb Hct MCV MCH MCHC RDW Plt Count Neut % (Auto) Lymph % (Auto) [place] % (Auto) Eos % (Auto) Baso % (Auto) Neut # (Auto) Lymph # (Auto) [place] # (Auto) Eos # (Auto) Baso # (Auto) PT INR D-Dimer Sodium Potassium Chloride Carbon Dioxide BUN Creatinine Estimated GFR BUN/Creatinine Ratio Glucose Lactate Calcium Total Bilirubin AST ALT Alkaline Phosphatase Troponin I NT-Pro-B Natriuret Pep Total Protein Albumin Globulin Albumin/Globulin Ratio Procalcitonin Chlamy pneumoniae PCR Not detected Adenovirus (PCR) Not detected B. pertussis DNA (PCR) Not detected B.parapertussis DNA PCR Not detected Coronavirus OC43 (PCR) Not detected Coronavirus HKU1 (PCR) Not detected Coronavirus 229E (PCR) Not detected SARS-CoV-2 (PCR) Negative Not detected Coronavirus NL63 (PCR) Not detected Human Metapneumovir PCR Not detected Influenza Type A (PCR) Not detected Influenza Type B (PCR) Not detected M. pneumoniae (PCR) Not detected Parainfluenza 1 (PCR) Not detected Parainfluenza 2 (PCR) Not detected Parainfluenza 3 (PCR) Detected H Parainfluenza 4 (PCR) Not detected RSV (PCR) Not detected Entero/Rhino (PCR) Not detected Assessment & Plan Assessment & Plan narrative: 1. Acute hypoxemic respiratory failure secondary to parainfluenza infection causing probable acute COPD exacerbation, active smoker -remains active smoker -has multiple physicians presuming he has COPD, has not been formally tested -rarely uses albuterol due to concern it causes stomach cramps, I have encouraged more frequent use -suspect cramps possibly secondary to coughing -cough with phlegm, and shortness of breath, along with wheezing consistent with acute COPD exacerbation -respiratory panel shows parainfluenza -procal negative, bacterial pneumonia unlikely -for now treat for acute copd exacerbation with azithromycin, steroids, duonebs - 2. Probable CHFpEF, not in exacerbation, and moderate aortic stenosis -bnp 121, though may be falsely low in obesity -symptoms much more consistent with copd and infection -attempt to keep euvolemic 3. Hypertension -continue home meds 4. Hyperlipidemia -continue statin 5. Chronic leg wound -provides wound care himself -declines further evaluation by myself and other hospital staff I have discussed plan and obtained history from patient and previous medical notes. I have discussed plan of care with ED physician and bedside nurse. I have reviewed labs, chest xray, previous records. CODE: Full Proxy: Gi Frazier,
[2022-11-04 01:54] LABS: MRSA (Nasal) PCR Not Detected (Not Detect)
[2022-11-04] MEDS: CYCLOBENZAPRINE 10 MG TABLET PO (03:05)
[2022-11-04 04:58] LABS: Add Manual Diff / Slide Review NO; Basophils Absolute Auto 0 /uL (0-100); Basophils Percent Auto 0.4 % (0-2); Eosinophils Absolute Auto 0 /uL (0-450); Hematocrit 36.6 % (41-53); Hemoglobin 12.1 g/dL (13.5-17.5); Lymphocytes Absolute Auto 800 /uL (1100-4500); Lymphocytes Percent Auto 13.7 % (25-40); Mean Corpuscular HGB Conc 32.9 % (30-36); Mean Corpuscular Hemoglobin 25.4 PG (26-34); Mean Corpuscular Volume 77.1 fL (80-100); Monocytes Absolute Auto 200 /uL (0-900); Monocytes Percent Auto 3.9 % (3-14); Neutrophils Absolute Auto 4900 /uL (1500-7000); Platelet Count 248 X10^3/uL (150-400); Red Blood Cell Count 4.75 X10^6/uL (4.5-5.9); Red Cell Distribution Width 16.3 % (11.6-14.8)
[2022-11-04 05:08] LABS: BUN Creatinine Ratio 36.5 (6-22); Blood Urea Nitrogen 23 mg/dL (9-20); Calcium 8.7 mg/dL (8.4-10.2); Carbon Dioxide 23 mmol/L (22-32); Chloride 100 mmol/L (98-107); Estimated Glomerular Filt Rate > 60 mL/min (>60); Glucose 139 mg/dL (80-110); HEMOLYSIS < 15 (0-50); Potassium 4.3 mmol/L (3.4-5.1); Sodium 134 mmol/L (137-145)
--- NOTE | 2022-11-04 08:15 | P.PN_ITS ---
Exam Vital Signs (past 8 hours): - 11/04/22 03:44 11/04/22 04:00 Temperature 99.0 F Pulse Rate 100 H Respiratory Rate 21 Blood Pressure 150/67 H Pulse Oximetry 96 94 Oxygen Delivery Method Nasal Cannula Oxygen Flow Rate 3 3 Fraction of Inspired Oxygen 36 SaO2/FiO2 Ratio 266 Oxygen Delivery Method Nasal Cannula Oxygen Flow Rate 3 Narrative Exam Narrative: GEN: in respiratory distress HEENT: moist mucous membranes, PERRL NECK: trachea midline, no jvd PULM: wheezes bilaterally CV: 2+ systolic murmur, tachycardic ABD: soft, nontender, nondistended, no organomegaly EXT: warm, well perfuse, foot edema noted, left leg with bandage, declines further evaluation by hospital staff NEURO: awake, alert, oriented, no focal deficits noted Objective Labs 11/04/22 04:42 11/04/22 04:42 Labs: Laboratory Results - last 24 hr 11/03/22 11/03/22 11/03/22 16:45 16:45 16:45 WBC 8.1 RBC 4.93 Hgb 12.5 L Hct 38.3 L MCV 77.7 L MCH 25.4 L MCHC 32.7 RDW 16.5 H Plt Count 271 Neut % (Auto) 67.5 Lymph % (Auto) 16.6 L [place] % (Auto) 13.6 Eos % (Auto) 1.4 L Baso % (Auto) 0.9 Neut # (Auto) 5500 Lymph # (Auto) 1300 [place] # (Auto) 1100 H Eos # (Auto) 100 Baso # (Auto) 100 PT 13.3 H INR 1.2 D-Dimer Sodium 137 Potassium 4.1 Chloride 102 Carbon Dioxide 25 BUN 23 H Creatinine 0.67 Estimated GFR > 60 BUN/Creatinine Ratio 34.3 H Glucose 103 Lactate Calcium 8.6 Total Bilirubin 0.4 AST 29 ALT 25 Alkaline Phosphatase 89 Troponin I 0.020 NT-Pro-B Natriuret Pep 121 Total Protein 7.9 Albumin 4.5 Globulin 3.4 Albumin/Globulin Ratio 1.3 Procalcitonin Nasal Screen MRSA (PCR) Chlamy pneumoniae PCR Adenovirus (PCR) B. pertussis DNA (PCR) B.parapertussis DNA PCR Coronavirus OC43 (PCR) Coronavirus HKU1 (PCR) Coronavirus 229E (PCR) SARS-CoV-2 (PCR) Coronavirus NL63 (PCR) Human Metapneumovir PCR Influenza Type A (PCR) Influenza Type B (PCR) M. pneumoniae (PCR) Parainfluenza 1 (PCR) Parainfluenza 2 (PCR) Parainfluenza 3 (PCR) Parainfluenza 4 (PCR) RSV (PCR) Entero/Rhino (PCR) 11/03/22 11/03/22 11/03/22 16:45 16:45 16:45 WBC RBC Hgb Hct MCV MCH MCHC RDW Plt Count Neut % (Auto) Lymph % (Auto) [place] % (Auto) Eos % (Auto) Baso % (Auto) Neut # (Auto) Lymph # (Auto) [place] # (Auto) Eos # (Auto) Baso # (Auto) PT INR D-Dimer 435 Sodium Potassium Chloride Carbon Dioxide BUN Creatinine Estimated GFR BUN/Creatinine Ratio Glucose Lactate 1.3 Calcium Total Bilirubin AST ALT Alkaline Phosphatase Troponin I NT-Pro-B Natriuret Pep Total Protein Albumin Globulin Albumin/Globulin Ratio Procalcitonin 0.04 Nasal Screen MRSA (PCR) Chlamy pneumoniae PCR Adenovirus (PCR) B. pertussis DNA (PCR) B.parapertussis DNA PCR Coronavirus OC43 (PCR) Coronavirus HKU1 (PCR) Coronavirus 229E (PCR) SARS-CoV-2 (PCR) Coronavirus NL63 (PCR) Human Metapneumovir PCR Influenza Type A (PCR) Influenza Type B (PCR) M. pneumoniae (PCR) Parainfluenza 1 (PCR) Parainfluenza 2 (PCR) Parainfluenza 3 (PCR) Parainfluenza 4 (PCR) RSV (PCR) Entero/Rhino (PCR) 11/03/22 11/03/22 11/03/22 17:12 18:22 22:59 WBC RBC Hgb Hct MCV MCH MCHC RDW Plt Count Neut % (Auto) Lymph % (Auto) [place] % (Auto) Eos % (Auto) Baso % (Auto) Neut # (Auto) Lymph # (Auto) [place] # (Auto) Eos # (Auto) Baso # (Auto) PT INR D-Dimer Sodium Potassium Chloride Carbon Dioxide BUN Creatinine Estimated GFR BUN/Creatinine Ratio Glucose Lactate Calcium Total Bilirubin AST ALT Alkaline Phosphatase Troponin I NT-Pro-B Natriuret Pep Total Protein Albumin Globulin Albumin/Globulin Ratio Procalcitonin Nasal Screen MRSA (PCR) Not detected Chlamy pneumoniae PCR Not detected Adenovirus (PCR) Not detected B. pertussis DNA (PCR) Not detected B.parapertussis DNA PCR Not detected Coronavirus OC43 (PCR) Not detected Coronavirus HKU1 (PCR) Not detected Coronavirus 229E (PCR) Not detected SARS-CoV-2 (PCR) Negative Not detected Coronavirus NL63 (PCR) Not detected Human Metapneumovir PCR Not detected Influenza Type A (PCR) Not detected Influenza Type B (PCR) Not detected M. pneumoniae (PCR) Not detected Parainfluenza 1 (PCR) Not detected Parainfluenza 2 (PCR) Not detected Parainfluenza 3 (PCR) Detected H Parainfluenza 4 (PCR) Not detected RSV (PCR) Not detected Entero/Rhino (PCR) Not detected 11/04/22 11/04/22 04:42 04:42 WBC 6.0 RBC 4.75 Hgb 12.1 L Hct 36.6 L MCV 77.1 L MCH 25.4 L MCHC 32.9 RDW 16.3 H Plt Count 248 Neut % (Auto) 82.0 H Lymph % (Auto) 13.7 L [place] % (Auto) 3.9 Eos % (Auto) 0.0 L Baso % (Auto) 0.4 Neut # (Auto) 4900 Lymph # (Auto) 800 L [place] # (Auto) 200 Eos # (Auto) 0 Baso # (Auto) 0 PT INR D-Dimer Sodium 134 L Potassium 4.3 Chloride 100 Carbon Dioxide 23 BUN 23 H Creatinine 0.63 L Estimated GFR > 60 BUN/Creatinine Ratio 36.5 H Glucose 139 H Lactate Calcium 8.7 Total Bilirubin AST ALT Alkaline Phosphatase Troponin I NT-Pro-B Natriuret Pep Total Protein Albumin Globulin Albumin/Globulin Ratio Procalcitonin Nasal Screen MRSA (PCR) Chlamy pneumoniae PCR Adenovirus (PCR) B. pertussis DNA (PCR) B.parapertussis DNA PCR Coronavirus OC43 (PCR) Coronavirus HKU1 (PCR) Coronavirus 229E (PCR) SARS-CoV-2 (PCR) Coronavirus NL63 (PCR) Human Metapneumovir PCR Influenza Type A (PCR) Influenza Type B (PCR) M. pneumoniae (PCR) Parainfluenza 1 (PCR) Parainfluenza 2 (PCR) Parainfluenza 3 (PCR) Parainfluenza 4 (PCR) RSV (PCR) Entero/Rhino (PCR) [facility] Medical History Abscess of neck Edema of lower leg due to peripheral venous insufficiency Family history of sudden cardiac (SCD) (03/04/11) Former smoker Heart murmur TIA (transient ischemic attack) Social History household members: spouse Smoking Status: Current every day smoker Tobacco: How many years used: 50 quit status: not considering quitting second hand exposure: Yes (Childhood ) alcohol intake: current substance use type: does not use Assessment & Plan Assessment & Plan narrative: 1. Acute hypoxemic respiratory failure secondary to parainfluenza infection causing probable acute COPD exacerbation, active smoker -remains active smoker -has multiple physicians presuming he has COPD, has not been formally tested -rarely uses albuterol due to concern it causes stomach cramps, I have encouraged more frequent use -suspect cramps possibly secondary to coughing -cough with phlegm, and shortness of breath, along with wheezing consistent with acute COPD exacerbation -respiratory panel shows parainfluenza -procal negative, bacterial pneumonia unlikely -for now treat for acute copd exacerbation with azithromycin, steroids, duonebs 2. Probable CHFpEF, not in exacerbation, and moderate aortic stenosis -bnp 121, though may be falsely low in obesity -symptoms much more consistent with copd and infection -attempt to keep euvolemic 3. Hypertension -continue home meds 4. Hyperlipidemia -continue statin 5. Chronic leg wound -provides wound care himself -declines further evaluation by myself and other hospital staff CODE: Full Proxy: Gi Frazier, Dispo:
[2022-11-04] MEDS: NICOTINE 21 MG PATCH TOP (08:45)
[2022-11-04] MEDS: predniSONE 20 MG TABLET 40 MG PO (08:46)
[2022-11-04] MEDS: ENOXAPARIN 40 MG/0.4 ML SYRINGE SUBCUT (08:46)
[2022-11-04] MEDS: ALBUTEROL/IPRATROPIUM 3 ML AMPUL INH (10:06)
--- NOTE | 2022-11-04 11:07 | P.DS_ITS ---
History of Present Illness History of Present Illness Date Patient Seen: 11/04/22 Time Patient Seen: 11:07 Chief complaint: SOB, Congestion, ABD cramps Narrative: Mr. Frazier is a 72M with PMH moderate aortic stenosis, possible CHFpEF, history of DVT remotely with chronic lower leg ulcers, active smoker, probable COPD who presents to the hospital with cough and shortness of breath. He notes frequent respiratory exacerbations where he has cough, shortness of breath, sputum production. He has seen multiple doctors who have postulated he has COPD, he has yet to be formally tested. He has been prescribed albuterol in the past, but thinks stomach cramps are possibly secondary to this medication. Over the last three days he has developed worsening cough with white phlegm, and shortness of breath. He continues to smoke. He does not use oxygen at home. He has no chest pain, no fevers/chills. In the ED workup was done, vitals notable for afebrile, heart rate 100s, respiratory rate 20s-30s, blood pressure 170s/70s, oxygen in the 80s on room air. He was placed on nasal cannula. Labs notable for WBC 8.1, hgb 12.5, plts 271, creatinine 0.67. Trop 0.20. Procal 0.04. Respiratory panel positive for parainfluenza. Chest xray with slight increased infrahilar opacity on the right read as possible airspace disease or atelectasis. He was ordered for nebs and st eroids and admitted for further treatment. Discharge Providers Provider Date of admission: 11/03/22 21:55 Discharge Date: 11/04/22 Primary care physician: Abraham Mendieta MD Discharge provider: Tyler Kamara DO Summary Hospital Course Discharge Diagnosis: 1. Acute hypoxemic respiratory failure secondary to parainfluenza infection causing probable acute COPD exacerbation, active smoker -remains active smoker -has multiple physicians presuming he has COPD, has not been formally tested -rarely uses albuterol due to concern it causes stomach cramps, I have encouraged more frequent use -suspect cramps possibly secondary to coughing -cough with phlegm, and shortness of breath, along with wheezing consistent with acute COPD exacerbation -respiratory panel shows parainfluenza -procal negative, bacterial pneumonia unlikely -given steroids, duonebs with improvement in wheezing and able to wean off O2 -patient wanted to go home, so sent home with po prednisone, a prescription for duoneb solutiona and nebulizer machine, cough syrup and chantix to help him quit smoking 2. Probable CHFpEF, not in exacerbation, and moderate aortic stenosis -bnp 121, though may be falsely low in obesity -symptoms much more consistent with copd and infection -attempt to keep euvolemic 3. Hypertension -continue home meds 4. Hyperlipidemia -continue statin 5. Chronic leg wound -provides wound care himself -declines further evaluation by myself and other hospital staff CODE: Full Proxy: Gi Frazier, Hospital Course: See problem list above. Exam Vital Signs (past 8 hours): - 11/04/22 03:44 11/04/22 04:00 11/04/22 08:39 Temperature 99.0 F Pulse Rate 100 H Respiratory Rate 21 Blood Pressure 150/67 H Pulse Oximetry 96 94 Oxygen Delivery Method Nasal Cannula Room Air Oxygen Flow Rate 3 3 Fraction of Inspired Oxygen 11/04/22 08:39 11/04/22 08:41 11/04/22 10:22 Temperature 98.2 F Pulse Rate 98 H 106 H Respiratory Rate 24 24 Blood Pressure 154/68 H Pulse Oximetry 93 94 96 Oxygen Delivery Method Room Air Nasal Cannula Oxygen Flow Rate 0 0 2.5 Fraction of Inspired Oxygen 30 Fraction of Inspired Oxygen 30 SaO2/FiO2 Ratio 320 Oxygen Delivery Method Nasal Cannula Oxygen Flow Rate 2.5 Narrative Exam Narrative: GEN: in no distress, no conversational dyspnea HEENT: moist mucous membranes, PERRL NECK: trachea midline, no jvd PULM: wheezes bilaterally have resolved today CV: 2+ systolic murmur, tachycardic ABD: soft, nontender, nondistended, no organomegaly EXT: warm, well perfuse, foot edema noted, left leg with bandage, declines f urther evaluation by hospital staff NEURO: awake, alert, oriented, no focal deficits noted Objective Labs 11/04/22 04:42 11/04/22 04:42 Labs: Laboratory Results - last 24 hr 11/03/22 11/03/22 11/03/22 16:45 16:45 16:45 WBC 8.1 RBC 4.93 Hgb 12.5 L Hct 38.3 L MCV 77.7 L MCH 25.4 L MCHC 32.7 RDW 16.5 H Plt Count 271 Neut % (Auto) 67.5 Lymph % (Auto) 16.6 L [place] % (Auto) 13.6 Eos % (Auto) 1.4 L Baso % (Auto) 0.9 Neut # (Auto) 5500 Lymph # (Auto) 1300 [place] # (Auto) 1100 H Eos # (Auto) 100 Baso # (Auto) 100 PT 13.3 H INR 1.2 D-Dimer Sodium 137 Potassium 4.1 Chloride 102 Carbon Dioxide 25 BUN 23 H Creatinine 0.67 Estimated GFR > 60 BUN/Creatinine Ratio 34.3 H Glucose 103 Lactate Calcium 8.6 Total Bilirubin 0.4 AST 29 ALT 25 Alkaline Phosphatase 89 Troponin I 0.020 NT-Pro-B Natriuret Pep 121 Total Protein 7.9 Albumin 4.5 Globulin 3.4 Albumin/Globulin Ratio 1.3 Procalcitonin Nasal Screen MRSA (PCR) Chlamy pneumoniae PCR Adenovirus (PCR) B. pertussis DNA (PCR) B.parapertussis DNA PCR Coronavirus OC43 (PCR) Coronavirus HKU1 (PCR) Coronavirus 229E (PCR) SARS-CoV-2 (PCR) Coronavirus NL63 (PCR) Human Metapneumovir PCR Influenza Type A (PCR) Influenza Type B (PCR) M. pneumoniae (PCR) Parainfluenza 1 (PCR) Parainfluenza 2 (PCR) Parainfluenza 3 (PCR) Parainfluenza 4 (PCR) RSV (PCR) Entero/Rhino (PCR) 11/03/22 11/03/22 11/03/22 16:45 16:45 16:45 WBC RBC Hgb Hct MCV MCH MCHC RDW Plt Count Neut % (Auto) Lymph % (Auto) [place] % (Auto) Eos % (Auto) Baso % (Auto) Neut # (Auto) Lymph # (Auto) [place] # (Auto) Eos # (Auto) Baso # (Auto) PT INR D-Dimer 435 Sodium Potassium Chloride Carbon Dioxide BUN Creatinine Estimated GFR BUN/Creatinine Ratio Glucose Lactate 1.3 Calcium Total Bilirubin AST ALT Alkaline Phosphatase Troponin I NT-Pro-B Natriuret Pep Total Protein Albumin Globulin Albumin/Globulin Ratio Procalcitonin 0.04 Nasal Screen MRSA (PCR) Chlamy pneumoniae PCR Adenovirus (PCR) B. pertussis DNA (PCR) B.parapertussis DNA PCR Coronavirus OC43 (PCR) Coronavirus HKU1 (PCR) Coronavirus 229E (PCR) SARS-CoV-2 (PCR) Coronavirus NL63 (PCR) Human Metapneumovir PCR Influenza Type A (PCR) Influenza Type B (PCR) M. pneumoniae (PCR) Parainfluenza 1 (PCR) Parainfluenza 2 (PCR) Parainfluenza 3 (PCR) Parainfluenza 4 (PCR) RSV (PCR) Entero/Rhino (PCR) 11/03/22 11/03/22 11/03/22 17:12 18:22 22:59 WBC RBC Hgb Hct MCV MCH MCHC RDW Plt Count Neut % (Auto) Lymph % (Auto) [place] % (Auto) Eos % (Auto) Baso % (Auto) Neut # (Auto) Lymph # (Auto) [place] # (Auto) Eos # (Auto) Baso # (Auto) PT INR D-Dimer Sodium Potassium Chloride Carbon Dioxide BUN Creatinine Estimated GFR BUN/Creatinine Ratio Glucose Lactate Calcium Total Bilirubin AST ALT Alkaline Phosphatase Troponin I NT-Pro-B Natriuret Pep Total Protein Albumin Globulin Albumin/Globulin Ratio Procalcitonin Nasal Screen MRSA (PCR) Not detected Chlamy pneumoniae PCR Not detected Adenovirus (PCR) Not detected B. pertussis DNA (PCR) Not detected B.parapertussis DNA PCR Not detected Coronavirus OC43 (PCR) Not detected Coronavirus HKU1 (PCR) Not detected Coronavirus 229E (PCR) Not detected SARS-CoV-2 (PCR) Negative Not detected Coronavirus NL63 (PCR) Not detected Human Metapneumovir PCR Not detected Influenza Type A (PCR) Not detected Influenza Type B (PCR) Not detected M. pneumoniae (PCR) Not detected Parainfluenza 1 (PCR) Not detected Parainfluenza 2 (PCR) Not detected Parainfluenza 3 (PCR) Detected H Parainfluenza 4 (PCR) Not detected RSV (PCR) Not detected Entero/Rhino (PCR) Not detected 11/04/22 11/04/22 04:42 04:42 WBC 6.0 RBC 4.75 Hgb 12.1 L Hct 36.6 L MCV 77.1 L MCH 25.4 L MCHC 32.9 RDW 16.3 H Plt Count 248 Neut % (Auto) 82.0 H Lymph % (Auto) 13.7 L [place] % (Auto) 3.9 Eos % (Auto) 0.0 L Baso % (Auto) 0.4 Neut # (Auto) 4900 Lymph # (Auto) 800 L [place] # (Auto) 200 Eos # (Auto) 0 Baso # (Auto) 0 PT INR D-Dimer Sodium 134 L Potassium 4.3 Chloride 100 Carbon Dioxide 23 BUN 23 H Creatinine 0.63 L Estimated GFR > 60 BUN/Creatinine Ratio 36.5 H Glucose 139 H Lactate Calcium 8.7 Total Bilirubin AST ALT Alkaline Phosphatase Troponin I NT-Pro-B Natriuret Pep Total Protein Albumin Globulin Albumin/Globulin Ratio Procalcitonin Nasal Screen MRSA (PCR) Chlamy pneumoniae PCR Adenovirus (PCR) B. pertussis DNA (PCR) B.parapertussis DNA PCR Coronavirus OC43 (PCR) Coronavirus HKU1 (PCR) Coronavirus 229E (PCR) SARS-CoV-2 (PCR) Coronavirus NL63 (PCR) Human Metapneumovir PCR Influenza Type A (PCR) Influenza Type B (PCR) M. pneumoniae (PCR) Parainfluenza 1 (PCR) Parainfluenza 2 (PCR) Parainfluenza 3 (PCR) Parainfluenza 4 (PCR) RSV (PCR) Entero/Rhino (PCR) [facility] Medical History Abscess of neck Edema of lower leg due to peripheral venous insufficiency Family history of sudden cardiac (SCD) (03/04/11) Former smoker Heart murmur TIA (transient ischemic attack) Social History household members: spouse Smoking Status: Current every day smoker Tobacco: How many years used: 50 quit status: not considering quitting second hand exposure: Yes (Childhood ) alcohol intake: current substance use type: does not use Discharge Plan Discharge Plan Patient Disposition: Home Provider Discharge Comment: You were admitted for COPD flare from parainfluenza virus. You initially required oxygen but this was weaned off. You will need to continue steroids at home to calm down the inflammation. I've also sent cough syrup, a nebulizer machine with nebs solution to use at home, and chantix which is a med to help you stop smoking. I would highly suggest you get your pulmonary function testing done to see what level of COPD you have. Discharge orders & Medications Prescriptions: New codeine-guaifenesin 10-100 mg/5 mL Liquid 10 ml PO Q6H PRN (Reason: Cough) Qty: 500 0RF prednisone 20 mg Tablet 40 mg PO DAILY 4 Days Qty: 8 0RF varenicline [Chantix Starting Month Box] 0.5 mg (11)- 1 mg (42) tablets,dose pack See Rx Instructions .ROUTE .COMPLEX Qty: 53 0RF Rx Instructions: orally per package directions (DME) compressor, for nebulizer Device See Rx Instructions .Route Qty: 1 0RF Rx Instructions: As directed (DME) nebulizer accessories Kit See Rx Instructions .Route Qty: 1 0RF Rx Instructions: As directed ipratropium-albuterol 0.5 mg-3 mg(2.5 mg base)/3 mL solution for nebulization 3 ml inhalation Q4-6H PRN (Reason: shortness of breath or wheezing) Qty: 90 0RF Continued nifedipine 60 mg tablet extended release 60 mg PO DAILY Qty: 90 3RF pravastatin 20 mg tablet 20 mg PO BEDTIME Qty: 90 3RF lisinopril 20 mg tablet 20 mg PO DAILY Qty: 30 0RF Rx Instructions: Start with 1/2 tab for first week. Discontinued azithromycin 250 mg tablet See Rx Instructions PO .COMPLEX 5 Days Qty: 6 0RF Rx Instructions: For 250 mg dose pack: take 500 mg today (day 1), then 250 mg for 4 days (days 2-5) PO Follow up/Referrals: Abraham Mendieta MD [Primary Care Provider] - 2 Weeks Visit Report/Discharge Packet Stand Alone Forms: Patient Portal/API, Stroke Signs & Symptoms Discharge Data Primary Care Provider: Abraham Mendieta
--- NOTE | 2022-11-04 12:37 | CM.DANOTE ---
Patient is a 72 yo male who was admitted on 11/03/22 for SOB. Pt has [facility] for insurance and his PCP is Dr. Abraham Mendieta. EMR was reviewed. Per MD, pt with possible COPD as not yet officially dx and admitted for oxygen, steroids, and nebs to reduce his SOB. Pt now weaned of oxygen and medically stable to d/c home today. RN and BLENDING T[employer] HELPER attempting to get ahold of spouse for transport. Per RN, pt has a chronic foot ulcer with dressing but declining RN to change wound or get pic of ulcer at this time. SW met bedside briefly with pt and explained role and he confirms he lives in [place] with his and is independent at baseline. Pt drives as does his spouse and pt denies any hx of admission to [facility] and has preference of how he cares for himself and denies any home oxygen at baseline and currently tolerating room air. Pt denies any hx of HH or SNF and preference is home before lunchtime if possible and states his is available to transport and assist as needed. Plan: Patient to d/c home today via spouse POV and no SW needs at this time. HUY Cintron Discharge Planning/Care Management CM Discharge Assessment Start: 11/04/22 12:36 Freq: Status: Active Protocol: Document 11/04/22 12:36 BF (Rec: 11/04/22 12:37 BF [id number]) Discharge Planning Assessment Assigned Ground Services Instructor HUY Lo DPOA/Assigned Designee Name Spouse Gi Contact Information [phone] Advance Directives? Yes Advance Directives on File No History Provided By Patient,Medical Record Has Patient been admitted in last 30 No days? Prior Living Arrangements House Household Members spouse Type of transporation used prior to Drives own vehicle admit Independent with ADL's Yes Is patient alert and oriented? Yes Caregiver for Another No DME Already Rented / Owned Cane Barriers to Discharge No Discharge Plan Home Transportation Arrangement Spouse to provide transport home at d/c Referrals Initiated None needed Whiteboard Updated in Patient Room with Yes name and ext. # of Ground Services Instructor Review Status In Process Please Provide Date Initial DC 11/04/22 Assessment Was Performed Next Review Type Continued Stay Review
--- NOTE | 2022-11-04 12:42 | PC.NURSE ---
Discharge note: IV discontinued, tele removed, education provided to patient. Notified patient that he should not smoke while he has the nicotine patch on and to remove if he does intend to smoke. Patient stated he is ready to quit and won't. Paperwork signed, questions answered. Patient wheeled via wheelchair by PCT to private vehicle with spouse at 12:10.
== END 2022-11-04 12:10 | disposition home or self-care (01) ==
LOC: ED 21:27 → AC 22:42 → ICU 11-04 07:30 → AC 11-04 14:51 → ICU 11-04 14:51
PROVIDERS: Emergency Medicine; Admitting Provider Internal Medicine; Emergency Provider Emergency Medicine; Family Provider Family Medicine; PCP Student in an Organized Health Care Education/Training Program; Referring Provider Emergency Medicine; Visit Provider Internal Medicine
DX: J96.01 Acute respiratory failure with hypoxia (principal); B34.8 Other viral infections of unspecified site; R10.9 Unspecified abdominal pain; I10 Essential (primary) hypertension; F17.210 Nicotine dependence, cigarettes, uncomplicated; Z20.822 Contact with and (suspected) exposure to COVID-19
CPT/HCPCS: 36415; 71045; 80048; 80053; 83605; 83880; 84145; 84484; 85025; 85379; 85610; 87040; 87633; 87635; 87797; 93005; 94640; 96365; 96366; 96372; 96375; 99285; C9803; G0378; J1650; J2930

== ENCOUNTER → 2023-05-01 07:05 | Outpatient (CLI) | payer OTHER, SELFPAY ==
[2022-11-03 23:44] VITALS: BMI 39.4
[2023-05-01 08:44] LABS: Add Manual Diff / Slide Review NO; Basophils Absolute Auto 100 /uL (0-100); Basophils Percent Auto 0.7 % (0-2); Eosinophils Absolute Auto 200 /uL (0-450); Eosinophils Percent Auto 3.2 % (2-4); Hematocrit 39.8 % (41-53); Lymphocytes Absolute Auto 2100 /uL (1100-4500); Lymphocytes Percent Auto 28.1 % (25-40); Mean Corpuscular HGB Conc 32.5 % (30-36); Mean Corpuscular Volume 82.9 fL (80-100); Monocytes Absolute Auto 900 /uL (0-900); Monocytes Percent Auto 11.6 % (3-14); Neutrophils Absolute Auto 4200 /uL (1500-7000); Neutrophils Percent Auto 56.4 % (50-75); Platelet Count 225 X10^3/uL (150-400); Red Blood Cell Count 4.81 X10^6/uL (4.5-5.9); Red Cell Distribution Width 15.8 % (11.6-14.8); White Blood Cell Count 7.5 X10^3/uL (4.5-11.0)
[2023-05-01 09:04] LABS: Alanine Aminotransferase 27 IU/L (<50); Albumin 4.1 g/dL (3.5-5.0); Albumin Globulin Ratio 1.6 (1.0-2.8); Alkaline Phosphatase 73 U/L (38-126); Aspartate Aminotransferase 24 IU/L (17-59); BUN Creatinine Ratio 34.3 (6-22); Bilirubin Total 0.3 mg/dL (0.2-1.3); Blood Urea Nitrogen 23 mg/dL (9-20); Calcium 9.2 mg/dL (8.4-10.2); Carbon Dioxide 26 mmol/L (22-32); Chloride 104 mmol/L (98-107); Cholesterol 201 mg/dL (140-199); Estimated Glomerular Filt Rate > 60 mL/min (>60); Globulin 2.5 g/dL (1.7-4.1); Glucose 123 mg/dL (80-110); HDL Cholesterol 35 mg/dL (40-60); HEMOLYSIS < 15 (0-50); Sodium 140 mmol/L (137-145); Total Protein 6.6 g/dL (6.3-8.2); Triglycerides 473 mg/dL (35-150)
[2023-05-01 09:08] LABS: High Sensitivity CRP - Cardiac 4.2 mg/L (1.0-3.0)
== END ==
PROVIDERS: Family Provider Family Medicine; PCP Pediatrics; Referring Provider Pediatrics; Visit Provider Pediatrics
DX: E66.9 Obesity, unspecified (principal); E78.5 Hyperlipidemia, unspecified; G45.9 Transient cerebral ischemic attack, unspecified; I35.0 Nonrheumatic aortic (valve) stenosis; I50.32 Chronic diastolic (congestive) heart failure; M47.814 Spondylosis without myelopathy or radiculopathy, thoracic region; M54.16 Radiculopathy, lumbar region; Z87.891 Personal history of nicotine dependence
CPT/HCPCS: 36415; 80053; 80061; 85025; 86140

== ENCOUNTER → 2023-06-05 12:09 | Outpatient (CLI) | payer OTHER, SELFPAY ==
[2022-11-03 23:44] VITALS: BMI 39.4
--- NOTE | 2023-06-05 12:12 | DI.RAD.S_ITS ---
PROCEDURE: XR KNEE LT 3V INDICATIONS: Left knee pain times several days TECHNIQUE: 3 views of the knee were acquired. COMPARISON: [facility], CR, XR KNEE LT 3V, 11/15/2021, 8:47. FINDINGS: Bones: No fractures or dislocations. No suspicious bony lesions. 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 There is mild medial femorotibial compartment joint space narrowing. Soft tissues: Small joint effusion. No suspicious soft tissue calcifications. IMPRESSION: Left knee without acute osseous abnormalities. Stable appearance of moderate tricompartmental osteoarthritic changes with small joint effusion. If there are persistent symptoms or clinical suspicion for pathology, then repeat radiographs or advanced imaging (CT or MRI) may be considered for further evaluation. Dictated by: Christiano Dominguez M.D. on 06/05/2023 at 17:17 Approved by: Christiano Dominguez M.D. on 06/05/2023 at 17:19
== END ==
PROVIDERS: Family Provider Family Medicine; PCP Student in an Organized Health Care Education/Training Program; Referring Provider Physician Assistant; Visit Provider Physician Assistant
DX: M25.562 Pain in left knee (principal); M25.462 Effusion, left knee
CPT/HCPCS: 73562

== ENCOUNTER → 2023-08-12 10:50 | Outpatient (CLI) | payer OTHER, SELFPAY ==
[2022-11-03 23:44] VITALS: BMI 39.4
[2023-08-12 11:41] LABS: HEMOLYSIS < 15 (0-50)
[2023-08-12 11:47] LABS: Blood Urea Nitrogen 21 mg/dL (9-20); Calcium 9.1 mg/dL (8.4-10.2); Carbon Dioxide 24 mmol/L (22-32); Chloride 106 mmol/L (98-107); Cholesterol 189 mg/dL (140-199); Glucose 115 mg/dL (80-110); HDL Cholesterol 40 mg/dL (40-60); LDL Cholesterol Calculated 87 mg/dL (<100); Potassium 4.2 mmol/L (3.4-5.1); Sodium 140 mmol/L (137-145); Triglycerides 308 mg/dL (35-150)
[2023-08-12 12:06] LABS: BUN Creatinine Ratio 35.6 (6-22); Estimated Glomerular Filt Rate > 60 mL/min (>60)
[2023-08-12 12:10] LABS: Hemoglobin A1C% w Est Avg Glu 6.2 % (4.0-6.0)
[2023-08-12 12:37] LABS: Prostate Specific Antigen 8.61 ng/mL (0.10-4.00)
== END ==
LOC: LAB 10:51
PROVIDERS: Family Provider Family Medicine; PCP Internal Medicine; Referring Provider Internal Medicine; Visit Provider Internal Medicine
DX: I10 Essential (primary) hypertension (principal); R73.01 Impaired fasting glucose; N40.1 Benign prostatic hyperplasia with lower urinary tract symptoms; N13.8 Other obstructive and reflux uropathy
CPT/HCPCS: 36415; 80048; 80061; 83036; 84153

== ENCOUNTER 2023-08-24 12:40 | Emergency (ER) | payer OTHER, SELFPAY ==
[2022-11-03 23:44] VITALS: BMI 39.4
--- NOTE | 2023-08-24 12:47 | ED.SOB ---
HPI - SOB/Dyspnea <Mic Ford PA-C - Last Filed: 08/24/23 15:55> General Chief Complaint: Shortness of Breath/Dyspnea Stated Complaint: SOB Time Seen by Provider: 08/24/23 12:44 History of Present Illness HPI Narrative: This is a 73-year-old male presents emergency department due to mildly increasing shortness breath over the last 2 months. States that it is worse when he lays down at night. He also states that he has been becoming increasingly short of breath with walking and mild activity. Denies any chest pain. Denies any abdominal pain, nausea, vomiting, URI symptoms, or any other concerning signs or symptoms. Patient states that he was seen by his primary care provider and sent here for further workup. Has been using his nebulizer as prescribed. States that he is reported mildly increased bilateral lower extremity edema. Related Data Previous Rx's Medication Instructions Recorded pravastatin 20 mg tablet 20 mg PO BEDTIME #90 tabs 08/04/22 compressor, for nebulizer #1 ea 11/04/22 nebulizer accessories #1 ea 11/04/22 losartan 50 mg tablet 50 mg PO DAILY #90 tabs 07/18/23 ipratropium 0.5 mg-albuterol 3 mg 3 ml inhalation Q4-6H PRN 08/21/23 (2.5 mg base)/3 mL nebulization shortness of breath or wheezing soln #90 mL amoxicillin 875 mg-potassium 1 tab PO BID #10 tabs 08/24/23 clavulanate 125 mg tablet azithromycin 250 mg tablet See Rx Instructions PO .COMPLEX #6 08/24/23 tabs triamcinolone acetonide 0.1 % 1 applic topical BID #80 grams 08/24/23 topical cream Allergies Allergy/AdvReac Type Severity Reaction Status Date / Time carvedilol AdvReac Severe Chills, Verified 08/24/23 10:34 body aches nifedipine AdvReac Intermediate edema Verified 08/24/23 12:53 spironolactone AdvReac Intermediate Abdominal Verified 08/24/23 10:34 Pain Review of Systems <Mic Ford PA-C - Last Filed: 08/24/23 15:55> Review of Systems Narrative: GENERAL: Denies chills, fatigue, malaise, fever, sweats. HEENT: Denies sinus pain, ear pain, sore throat, difficulty swallowing, dizziness. RESPIRATORY: Reports dyspnea, denies cough, wheezing, hemoptysis, sputum. CARDIOVASCULAR: Denies chest pain, palpitations, orthopnea, edema, GASTROINTESTINAL: Denies nausea, vomiting, abdominal pain, diarrhea, constipation, melena. : Denies dysuria, frequency, incontinence, hematuria, urinary retention. MUSCULOSKELETAL: Reports lower extremity edema, denies weakness, joint pain, or bony pain SKIN: Denies rash, skin lesions, or other NEUROLOGIC: Denies weakness, headache, numbness, change in speech, confusion, seizures, incoordination. PSYCHIATRIC: No concerning psychosocial issues. 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 Impaired fasting glucose BPH w urinary obs/LUTS Tobacco use disorder Mixed hyperlipidemia Cerebrovascular disease Aortic stenosis, moderate Essential hypertension Family history of sudden cardiac (SCD) (03/04/11) Abscess of neck Edema of lower leg due to peripheral venous insufficiency Social History (Updated 11/21/22 @ 13:24 by Abraham Mendieta MD) details: (Gi), handicapped son; 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 HEAD: Atraumatic. Normocephalic. EYES: Pupils equal round and reactive. Extraocular motions intact. No scleral icterus. No injection or drainage. ENT: Nose without bleeding, purulent drainage. Throat without erythema, tonsillar hypertrophy or exudate. Airway patent. NECK: Trachea midline. Non tender EXTREMITIES: 1+ pitting edema bilaterally. No tenderness to palpation to the posterior calves or popliteal space of either lower extremity. NEURO: AOx3. SKIN: No rash or erythema of visible areas CARDIOVASCULAR: Regular rate and rhythm without murmurs, gallops, or rubs. RESPIRATORY: Clear to auscultation. Breath sounds equal bilaterally. No wheezes, rales, or rhonchi. GASTROINTESTINAL: Abdomen soft, non-tender, nondistended. BACK: Nontender without deformity or crepitance. No flank tenderness. Initial Vital Signs Initial Vital Signs: Vital Signs Temperature 98.5 F 08/24/23 12:57 Pulse Rate 95 H 08/24/23 12:57 Respiratory Rate 22 08/24/23 12:57 Blood Pressure 178/83 H 08/24/23 12:57 Pulse Oximetry 93 08/24/23 12:57 Oxygen Delivery Method Room Air 08/24/23 12:57 <Ashli Fischer MD - Last Filed: 08/26/23 07:35> Initial Vital Signs Initial Vital Signs: Vital Signs Temperature 98.5 F 08/24/23 12:57 Pulse Rate 95 H 08/24/23 12:57 Respiratory Rate 22 08/24/23 12:57 Blood Pressure 178/83 H 08/24/23 12:57 Pulse Oximetry 93 08/24/23 12:57 Oxygen Delivery Method Room Air 08/24/23 12:57 Course <Mic Ford PA-C - Last Filed: 08/24/23 15:55> Orders Ordered: ED Orders 08/24/23 12:56 XR chest 1V Stat Measure peak expiratory flow ONCE RT Consult Eval and Treat NOW 08/24/23 13:02 CT angio chest PE protocol Stat EC echo complete with contrast Stat 08/24/23 13:04 Covid-19 + FLU A/B + RSV - PCR Stat 08/24/23 13:10 Complete Blood Count AUTO DIFF Stat Comprehensive Metabolic Panel Stat Lactate (Lactic Acid) Stat NT-proBNP (BNP-Adult 18+) Stat Prothrombin Time INR Stat Troponin I Stat 08/24/23 13:14 EKG-12 Lead Stat Vital Signs Vital signs: Vital Signs - 8 hr 08/24/23 12:57 08/24/23 14:22 Temperature 98.5 F Pulse Rate 95 H 78 Respiratory Rate 22 14 Blood Pressure 178/83 H 178/83 H Pulse Oximetry 93 94 Oxygen Delivery Method Room Air Room Air <Ashli Fischer MD - Last Filed: 08/26/23 07:35> Orders Ordered: ED Orders 08/24/23 12:56 XR chest 1V Stat Measure peak expiratory flow ONCE RT Consult Eval and Treat NOW 08/24/23 13:02 CT angio chest PE protocol Stat EC echo complete with contrast Stat 08/24/23 13:04 Covid-19 + FLU A/B + RSV - PCR Stat 08/24/23 13:10 Complete Blood Count AUTO DIFF Stat Comprehensive Metabolic Panel Stat Lactate (Lactic Acid) Stat NT-proBNP (BNP-Adult 18+) Stat Prothrombin Time INR Stat Troponin I Stat 08/24/23 13:14 EKG-12 Lead Stat Vital Signs Vital signs: Vital Signs - 8 hr 08/24/23 12:57 08/24/23 14:22 Temperature 98.5 F Pulse Rate 95 H 78 Respiratory Rate 22 14 Blood Pressure 178/83 H 178/83 H Pulse Oximetry 93 94 Oxygen Delivery Method Room Air Room Air MDM - SOB/Dyspnea <Mic Ford PA-C - Last Filed: 08/24/23 15:55> Lab Data 08/24/23 13:10 08/24/23 13:10 Labs: Lab Results 08/24/23 08/24/23 08/24/23 Range/Units 13:04 13:10 15:10 WBC 9.4 (4.5-11.0) X10^3/uL RBC 4.67 (4.5-5.9) X10^6/uL Hgb 12.6 L (13.5-17.5) g/dL Hct 38.6 L (41-53) % MCV 82.7 (80-100) fL MCH 27.0 (26-34) PG MCHC 32.7 (30-36) % RDW 15.1 H (11.6-14.8) % Plt Count 245 (150-400) X10^3/uL Neut % (Auto) 68.8 (50-75) % Lymph % (Auto) 16.9 L (25-40) % [place] % (Auto) 10.8 (3-14) % Eos % (Auto) 2.4 (2-4) % Baso % (Auto) 1.1 (0-2) % Neut # (Auto) 6500 (4081-0607) /uL Lymph # (Auto) 1600 (7847-4952) /uL [place] # (Auto) 1000 H (0-900) /uL Eos # (Auto) 200 (0-450) /uL Baso # (Auto) 100 (0-100) /uL PT 12.6 H (9.4-12.5) SECONDS INR 1.1 (0.9-1.3) Sodium 137 (137-145) mmol/L Potassium 4.1 (3.4-5.1) mmol/L Chloride 105 (98-107) mmol/L Carbon Dioxide 23 (22-32) mmol/L BUN 20 (9-20) mg/dL Creatinine 0.55 L (0.66-1.25) mg/dL Estimated GFR > 60 (>60) mL/min BUN/Creatinine Ratio 36.4 H (6-22) Glucose 115 H (80-110) mg/dL Lactate 2.1 1.6 (0.7-2.1) mmol/L Calcium 9.4 (8.4-10.2) mg/dL Total Bilirubin 0.6 (0.2-1.3) mg/dL AST 28 (17-59) IU/L ALT 25 (<50) IU/L Alkaline Phosphatase 69 (38-126) U/L Troponin I 0.033 (0.01-0.034) ng/mL NT-Pro-B Natriuret Pep 271 H (<125) pg/mL Total Protein 7.5 (6.3-8.2) g/dL Albumin 4.4 (3.5-5.0) g/dL Globulin 3.1 (1.7-4.1) g/dL Albumin/Globulin Ratio 1.4 (1.0-2.8) SARS-CoV-2 (PCR) Negative (Negative) Influenza A (RT-PCR) Flu a negative (NEGATIVE) Influenza B (RT-PCR) Flu b negative (NEGATIVE) RSV (PCR) Negative (Negative) Imaging Data Chest x-ray: Radiologist's Impression: [address] [address] XRay Report Signed Patient: Ron Frazier MR#: [id number] : 1950 Acct:[id number] Age/Sex: 73 / M Date of Service: 08/24/23 Loc: ED Accession Number: [id number] Procedure: XR chest 1V Ordering Provider: Mic Ford P.A-C PROCEDURE: XR CHEST 1V INDICATIONS: Shortness of breath TECHNIQUE: One view of the chest was acquired. COMPARISON: [facility], , XR CHEST 1V, 11/03/2022, 17:02. FINDINGS: Surgical changes and devices: None. Lungs and pleura: Lung volumes are slightly low, but lungs are clear. No pleural effusions or pneumothorax. Mediastinum: Mediastinal contours appear normal. Heart size is normal. Bones and chest wall: No suspicious bony lesions. Overlying soft tissues appear unremarkable. IMPRESSION: No acute cardiopulmonary process. Dictated by: Kam Buck M.D. on 08/24/2023 at 13:33 Approved by: Kam Buck M.D. on 08/24/2023 at 13:33 CT scan - chest: Radiologist's Impression: [place] [address] CT Scan Report Signed Patient: Ron Frazier MR#: [id number] : 1950 Acct:[id number] Age/Sex: 73 / M Date of Service: 08/24/23 Loc: ED Accession Number: [id number] Procedure: CT angio chest PE protocol Ordering Provider: Mic Ford P.A-C PROCEDURE: CT ANGIO CHEST PE PROTOCOL INDICATIONS: SOB r/o PE TECHNIQUE: After the administration of intravenous contrast, 2 mm thick sections acquired from the pulmonary apices to the posterior costophrenic angles. 3-dimensional maximum intensity projection (MIP) coronal and sagittal reformats were then acquired through the thorax. For radiation dose reduction, the following was used: automated exposure control, adjustment of mA and/or kV according to patient size. COMPARISON: None. FINDINGS: Image quality: Diagnostic. Pulmonary arteries: Pulmonary arteries are normal in size, and demonstrate no intraluminal filling defects to suggest central pulmonary embolism. Lower Neck: No enlarged lymph nodes. Thyroid: No thyroid nodules which require sonographic follow up, per consensus guidelines. Axillae: No enlarged lymph nodes. Chest Wall: Unremarkable. Bones: Unremarkable. Lungs and Pleura: No pneumothorax or pleural effusions. Mild diffuse bilateral ground-glass and reticulonodular/interstitial pulmonary opacity. Heart: Heart size is normal. No pericardial effusion. Calcification of the coronary vasculature is present. Thoracic Vessels: No aortic aneurysm. Mediastinum and Wendi: No enlarged lymph nodes. Esophagus: No wall thickening. No hiatal hernia. Upper Abdomen: Visualized portions of the upper abdomen demonstrate calcifications within the pancreatic neck. IMPRESSION: 1. No pulmonary embolus. 2. Mild atypical pneumonia. 3. Coronary artery disease. 4. Chronic pancreatitis sequelae. Dictated by: Malik Tovar M.D. on 08/24/2023 at 13:40 Approved by: Malik Tovar M.D. on 08/24/2023 at 13:44 Echo: Radiologist's Impression: [address] [address] Echocardiography Report Signed Patient: Ron Frazier MR#: [id number] : 1950 Acct:[id number] Age/Sex: 73 / M Date of Service: 08/24/23 Loc: ED Accession Number: [id number] Procedure: EC echo complete with contrast Ordering Provider: Mic Ford P.A-C [place] +---------+ [facility] +---------+ : : [address] [place] [address]. : : : : [place], [place] : : : : [address] : : : : Phone: [phone] Echocardiogram Report + + :Name: RON FRAZIER Study Date: 08/24/2023 Height: 70 in : :[facility] ReadingLocation: Weight: 295 lb : : Gender: Male BSA: 2.5 m2 : :: 1950 Age: 73 yrs BP: 178/83 mmHg: :Reason For Study: SHORTNESS OF BREATH, CONGESTIVE HEART : :FAILURE : :Ordering Physician: MIC FORD : :Bal Performed By: Wendy Zafar : :Referring: MIC FORD P.A-C : + + Interpretation Summary The left ventricle is normal in size. There is moderate concentric left ventricular hypertrophy. Left ventricular systolic function is normal. The ejection fraction is estimated to be 60-65%. Diastolic parameters suggest a pseudonormalization pattern, consistent with probable elevated filling pressures. The right ventricle is normal size. The right ventricular systolic function is normal. The aortic valve is heavily calcified. The aortic valve is not well visualized. The peak aortic velocity is 3.3 m/sec. The aortic valve mean gradient is 25 mmHg. The peak aortic velocity on the previous exam was 2.91 m/sec. The calculated aortic valve area is 1.4 cm2. sev ratio: 0.37 There is moderate aortic stenosis. Compared to the prior echo study, there has been an increase in the severity of aortic stenosis. There is mild to moderate aortic regurgitation. Compared to the prior echo study, there has been an increase in the severity of aortic regurgitation. Moderate atherosclerotic plaque(s) in the descending aorta. Moderate atherosclerotic plaque(s) in the aortic arch. Procedure: A two-dimensional transthoracic echocardiogram with color flow and Doppler was performed. The study quality was technically adequate. Comparison is made with the echocardiogram of 09/09/2022. A contrast injection of Definity was performed to improve assessment of LV function. The patient was in sinus rhythm with heart rates between 80-92 bpm during the exam. Left Ventricle: The left ventricle is normal in size. There is moderate concentric left ventricular hypertrophy. There is no thrombus. The ejection fraction is estimated to be 60-65%. Left ventricular systolic function is normal. There are no focal wall motion abnormalities. Diastolic parameters suggest a pseudonormalization pattern, consistent with probable elevated filling pressures. Right Ventricle: The right ventricle is normal size. The right ventricular systolic function is normal. Atria: The left atrium is moderately dilated. There has been no significant change since the previous study. The right atrium is borderline dilated. There is no Doppler evidence for an interatrial shunt. Mitral Valve: The mitral valve leaflets are slightly calcified. There is mild mitral annular calcification. There is trace mitral regurgitation. Aortic Valve: The aortic valve is heavily calcified. The aortic valve is not well visualized. There is moderate aortic stenosis. The peak aortic velocity is 3.3 m/sec. The calculated aortic valve area is 1.4 cm2. The aortic valve mean gradient is 25 mmHg. The peak aortic velocity on the previous exam was 2.91 m/sec. Compared to the prior echo study, there has been an increase in the severity of aortic stenosis. There is mild to moderate aortic regurgitation. Compared to the prior echo study, there has been an increase in the severity of aortic regurgitation. Tricuspid Valve: The tricuspid valve is normal in structure and function. There is trace tricuspid regurgitation. Pulmonary artery pressures cannot be estimated because of the lack of a measurable TR jet velocity. Pulmonic Valve: The pulmonic valve is not well visualized. There is no pulmonic valvular regurgitation. Great Vessels: The aortic root is normal size. Moderate atherosclerotic plaque(s) in the descending aorta. Moderate atherosclerotic plaque(s) in the aortic arch. The ascending aorta is at the upper limits of normal in size. The inferior vena cava was not well visualized. Pericardium/ Pleura There is no pericardial effusion. There is no pleural effusion. MMode/2D Measurements & Calculations LVIDd: 5.2 cm LVOT diam: 2.3 cm LVIDs: 3.8 cm Ao root diam: 3.9 cm FS: 26.5 % asc Aorta Diam: 3.9 cm EPSS: 0.85 cm Ao Arch Diam (Prox Trans): 2.8 cm IVSd: 1.4 cm LVPWd: 1.5 cm LV lopez. diameter/BSA (cm/m^2): 2.1 LV sys. diameter/BSA (cm/m^2): 1.6 LA A2 area: 29.8 cm2 RA long axis: 6.4 cm LA A4 area: 27.1 cm2 RA area: 24.9 cm2 LA length (vol): 6.2 cm RA vol: 82.3 ml LA vol: 111.2 ml RA : 33.4 ml/m2 LA vol index: 45.1 ml/m2 IVC diam: 2.9 cm RVD1 (basal): 4.0 cm RVD2 (mid): 3.5 cm TAPSE: 2.5 cm Doppler Measurements & Calculations Ao V2 max: 332.8 cm/sec LVOT Max Quentin: 111.4 cm/sec Ao V2 mean: 239.6 cm/sec LV V1 max P.0 mmHg Ao max P.1 mmHg LV V1 VTI: 24.1 cm Ao mean P.5 mmHg RIVAS(I,D): 1.5 cm2 Ao V2 VTI: 66.0 cm RIVAS(V,D): 1.4 cm2 sev ratio: 0.37 RIVAS indexed to BSA (cm^2/m^2): 0.62 AI P1/2t: 358.4 msec AI dec slope: 352.3 cm/sec2 MV E max quentin: 127.8 cm/sec PA V2 max: 110.5 cm/sec MV A max quentin: 82.8 cm/sec PA V2 mean: 88.1 cm/sec MV E/A: 1.5 PA mean P.3 mmHg Med Peak E' Quentin: 6.8 cm/sec PA pr(Accel): 36.2 mmHg E/E' med: 18.8 Lat Peak E' Quentin: 7.8 cm/sec E/E' lat: 16.4 E/e' average: 17.6 MV dec time: 0.26 sec SV(LVOT): 100.1 ml Reading Physician:03:29 PM ECG Data Interpretation: 1314: EKG is normal sinus rhythm rate 90 and free of any signs of ischemia or ectopy. No ST segmental elevation or depression. No T wave inversions MDM Narrative Medical decision making narrative: ED course: This is a 73-year-old male presents emergency department due to 2 months of shortness a breath. Vitals within normal limits on arrival to the ED. States he was sent by his primary care provider for a PE rule out as well as an echocardiogram. CT PE ordered which was negative for PE but did show mild atypical pneumonia. We will treat with oral antibiotics. Echocardiogram showed an ejection fraction of 60-65% along with moderate aortic stenosis which is chronic for the patient. Lab work unremarkable. BNP appears to be baseline as well as mild anemia. COVID, influenza, RSV negative. Troponin within normal limits. CC: Shortness of breath Complicating co-morbidities: moderate aortic stenosis, possible CHF PEF, history of DVT. History of COPD and hypertension Data collected from: Previous notes Medical records reviewed: Patient was seen approximately 10 months ago due to shortness of breath. History of COPD and hypertension. Does have baseline lower extremity swelling due to peripheral venous insufficiency. Patient was positive for parainfluenza 3. Patient was tachypneic on arrival improved after nebulizer treatments. Required supplemental oxygen and was admitted for hospitalization. Based on discharge summary patient has a history of moderate aortic stenosis, possible CHF PEF, history of DVT. Active smoker. Has not been formally tested for COPD. Patient was given steroids and DuoNebs and was able to wean off O2 and discharged home. Differential considered, but not limited to: Pneumonia, viral URI, CHF exacerbation Exam documented above, pertinent findings include: Reassuring physical exam Lab Test results independently reviewed as above. Pertinent findings: Mildly anemic with a hemoglobin 12.6 which appears baseline for the patient. CMP unremarkable. Lactate within normal limits. COVID, influenza, RSV negative. Troponin within normal limits. BNP elevated at 271. Last year in the your prior it was roughly the same value. Imaging studies independently reviewed: Chest x-ray unremarkable. CT PE negative for PE but did show mild atypical pneumonia. Echocardiogram showed no evidence of heart failure, did state moderate aortic stenosis which is chronic for the patient. Scores Used: None MIPS Elements: None Consultations: None Treatments: None Re-evaluations: None Discussion: Discussed plan with the patient was comfortable with the plan Diagnosis: Atypical pneumonia Disposition: see below, along with detailed discharge instructions that have been reviewed with patient as well as indications for ED re-evaluation and additional outpatient follow up <Ashli Fischer MD - Last Filed: 08/26/23 07:35> Lab Data Labs: Lab Results 08/24/23 08/24/23 08/24/23 Range/Units 13:04 13:10 15:10 WBC 9.4 (4.5-11.0) X10^3/uL RBC 4.67 (4.5-5.9) X10^6/uL Hgb 12.6 L (13.5-17.5) g/dL Hct 38.6 L (41-53) % MCV 82.7 (80-100) fL MCH 27.0 (26-34) PG MCHC 32.7 (30-36) % RDW 15.1 H (11.6-14.8) % Plt Count 245 (150-400) X10^3/uL Neut % (Auto) 68.8 (50-75) % Lymph % (Auto) 16.9 L (25-40) % [place] % (Auto) 10.8 (3-14) % Eos % (Auto) 2.4 (2-4) % Baso % (Auto) 1.1 (0-2) % Neut # (Auto) 6500 (2053-2120) /uL Lymph # (Auto) 1600 (0528-7677) /uL [place] # (Auto) 1000 H (0-900) /uL Eos # (Auto) 200 (0-450) /uL Baso # (Auto) 100 (0-100) /uL PT 12.6 H (9.4-12.5) SECONDS INR 1.1 (0.9-1.3) Sodium 137 (137-145) mmol/L Potassium 4.1 (3.4-5.1) mmol/L Chloride 105 (98-107) mmol/L Carbon Dioxide 23 (22-32) mmol/L BUN 20 (9-20) mg/dL Creatinine 0.55 L (0.66-1.25) mg/dL Estimated GFR > 60 (>60) mL/min BUN/Creatinine Ratio 36.4 H (6-22) Glucose 115 H (80-110) mg/dL Lactate 2.1 1.6 (0.7-2.1) mmol/L Calcium 9.4 (8.4-10.2) mg/dL Total Bilirubin 0.6 (0.2-1.3) mg/dL AST 28 (17-59) IU/L ALT 25 (<50) IU/L Alkaline Phosphatase 69 (38-126) U/L Troponin I 0.033 (0.01-0.034) ng/mL NT-Pro-B Natriuret Pep 271 H (<125) pg/mL Total Protein 7.5 (6.3-8.2) g/dL Albumin 4.4 (3.5-5.0) g/dL Globulin 3.1 (1.7-4.1) g/dL Albumin/Globulin Ratio 1.4 (1.0-2.8) SARS-CoV-2 (PCR) Negative (Negative) Influenza A (RT-PCR) Flu a negative (NEGATIVE) Influenza B (RT-PCR) Flu b negative (NEGATIVE) RSV (PCR) Negative (Negative) Discharge Plan Departure Patient Disposition: Home Clinical Impression: Atypical pneumonia Activity Restrictions/Additional Instructions: Thank you for coming to the [facility] Emergency Department today. As we discussed your CT scan to check for blood clot in your lungs was negative for blood clot. It did show pneumonia which we will treat with oral antibiotics, please take as prescribed. The echocardiogram that checks the functioning of your heart was reassuring. The ejection fraction was within normal limits. Please follow up with the primary care provider to further discuss the results. Please return to the emergency department if you develop any significant new chest pain, shortness of breath, or any other concerning signs or symptoms. I hope you feel better soon. Please follow up with your primary care provider within a week if your symptoms continue. If you do not have a primary care provider please contact the [facility] Resource line at [phone]. They will ask some questions about your medical history and help you get set up with a provider in the community. Prescriptions: New amoxicillin-pot clavulanate 875-125 mg tablet 1 tab PO BID Qty: 10 0RF azithromycin 250 mg tablet See Rx Instructions .ROUTE .COMPLEX Qty: 6 0RF Rx Instructions: For 250 mg dose pack: take 500 mg today (day 1), then 250 mg for 4 days (days 2-5) No Action pravastatin 20 mg tablet 20 mg PO BEDTIME Qty: 90 3RF ipratropium-albuterol 0.5 mg-3 mg(2.5 mg base)/3 mL solution for nebulization 3 ml inhalation Q4-6H PRN (Reason: shortness of breath or wheezing) Qty: 90 0RF losartan 50 mg tablet 50 mg PO DAILY Qty: 90 3RF triamcinolone acetonide 0.1 % cream 1 applic topical BID Qty: 80 1RF (DME) compressor, for nebulizer Device See Rx Instructions .Route Qty: 1 0RF Rx Instructions: As directed (DME) nebulizer accessories Kit See Rx Instructions .Route Qty: 1 0RF Rx Instructions: As directed Referrals: Ghanshyam Willis MD [Primary Care Provider] - Stand Alone Forms: Patient Portal/API ED Sign-out <Ashli Fischer MD - Last Filed: 08/26/23 07:35> Cosign ED Attending Cosignature Attestation: Discussed patient with Dr. Willis, who stated that patient could be followed up outpatient. Patient hemodynamically stable, ambulatory in hallway without dyspnea or discomfort.
--- NOTE | 2023-08-24 12:56 | DI.RAD.S_ITS ---
PROCEDURE: XR CHEST 1V INDICATIONS: Shortness of breath TECHNIQUE: One view of the chest was acquired. COMPARISON: [facility], CR, XR CHEST 1V, 11/03/2022, 17:02. FINDINGS: Surgical changes and devices: None. Lungs and pleura: Lung volumes are slightly low, but lungs are clear. No pleural effusions or pneumothorax. Mediastinum: Mediastinal contours appear normal. Heart size is normal. Bones and chest wall: No suspicious bony lesions. Overlying soft tissues appear unremarkable. IMPRESSION: No acute cardiopulmonary process. Dictated by: Kam Buck M.D. on 08/24/2023 at 13:33 Approved by: Kam Buck M.D. on 08/24/2023 at 13:33
[2023-08-24 12:57] VITALS: BP 178/83; PULSE 95; RESP 22; TEMP 36.9; O2SAT 93
--- NOTE | 2023-08-24 13:02 | DI.CT.S_ITS ---
PROCEDURE: CT ANGIO CHEST PE PROTOCOL INDICATIONS: SOB r/o PE TECHNIQUE: After the administration of intravenous contrast, 2 mm thick sections acquired from the pulmonary apices to the posterior costophrenic angles. 3-dimensional maximum intensity projection (MIP) coronal and sagittal reformats were then acquired through the thorax. For radiation dose reduction, the following was used: automated exposure control, adjustment of mA and/or kV according to patient size. COMPARISON: None. FINDINGS: Image quality: Diagnostic. Pulmonary arteries: Pulmonary arteries are normal in size, and demonstrate no intraluminal filling defects to suggest central pulmonary embolism. Lower Neck: No enlarged lymph nodes. Thyroid: No thyroid nodules which require sonographic follow up, per consensus guidelines. Axillae: No enlarged lymph nodes. Chest Wall: Unremarkable. Bones: Unremarkable. Lungs and Pleura: No pneumothorax or pleural effusions. Mild diffuse bilateral ground-glass and reticulonodular/interstitial pulmonary opacity. Heart: Heart size is normal. No pericardial effusion. Calcification of the coronary vasculature is present. Thoracic Vessels: No aortic aneurysm. Mediastinum and Wendi: No enlarged lymph nodes. Esophagus: No wall thickening. No hiatal hernia. Upper Abdomen: Visualized portions of the upper abdomen demonstrate calcifications within the pancreatic neck. IMPRESSION: 1. No pulmonary embolus. 2. Mild atypical pneumonia. 3. Coronary artery disease. 4. Chronic pancreatitis sequelae. Dictated by: Malik Tovar M.D. on 08/24/2023 at 13:40 Approved by: Malik Tovar M.D. on 08/24/2023 at 13:44
--- NOTE | 2023-08-24 13:02 | DI.ECHO.S_ITS ---
[facility] +---------+ : : [address] : : : : [id number] : : : : Phone: [phone]+ Echocardiogram Report + + :Name: RON DEVLIN Study Date: 08/24/2023 Height: 70 in : :[facility] ReadingLocation: Weight: 295 lb : : Gender: Male BSA: 2.5 m2 : :: 1950 Age: 73 yrs BP: 178/83 mmHg: :Reason For Study: SHORTNESS OF BREATH, CONGESTIVE HEART : :FAILURE : :Ordering Physician: DANYELL FORD : :Bal Performed By: Wendy Zafar : :Referring: DANYELL FORD P.A-C : + + Interpretation Summary The left ventricle is normal in size. There is moderate concentric left ventricular hypertrophy. Left ventricular systolic function is normal. The ejection fraction is estimated to be 60-65%. Diastolic parameters suggest a pseudonormalization pattern, consistent with probable elevated filling pressures. The right ventricle is normal size. The right ventricular systolic function is normal. The aortic valve is heavily calcified. The aortic valve is not well visualized. The peak aortic velocity is 3.3 m/sec. The aortic valve mean gradient is 25 mmHg. The peak aortic velocity on the previous exam was 2.91 m/sec. The calculated aortic valve area is 1.4 cm2. sev ratio: 0.37 There is moderate aortic stenosis. Compared to the prior echo study, there has been an increase in the severity of aortic stenosis. There is mild to moderate aortic regurgitation. Compared to the prior echo study, there has been an increase in the severity of aortic regurgitation. Moderate atherosclerotic plaque(s) in the descending aorta. Moderate atherosclerotic plaque(s) in the aortic arch. Procedure: A two-dimensional transthoracic echocardiogram with color flow and Doppler was performed. The study quality was technically adequate. Comparison is made with the echocardiogram of 09/09/2022. A contrast injection of Definity was performed to improve assessment of LV function. The patient was in sinus rhythm with heart rates between 80-92 bpm during the exam. Left Ventricle: The left ventricle is normal in size. There is moderate concentric left ventricular hypertrophy. There is no thrombus. The ejection fraction is estimated to be 60-65%. Left ventricular systolic function is normal. There are no focal wall motion abnormalities. Diastolic parameters suggest a pseudonormalization pattern, consistent with probable elevated filling pressures. Right Ventricle: The right ventricle is normal size. The right ventricular systolic function is normal. Atria: The left atrium is moderately dilated. There has been no significant change since the previous study. The right atrium is borderline dilated. There is no Doppler evidence for an interatrial shunt. Mitral Valve: The mitral valve leaflets are slightly calcified. There is mild mitral annular calcification. There is trace mitral regurgitation. Aortic Valve: The aortic valve is heavily calcified. The aortic valve is not well visualized. There is moderate aortic stenosis. The peak aortic velocity is 3.3 m/sec. The calculated aortic valve area is 1.4 cm2. The aortic valve mean gradient is 25 mmHg. The peak aortic velocity on the previous exam was 2.91 m/sec. Compared to the prior echo study, there has been an increase in the severity of aortic stenosis. There is mild to moderate aortic regurgitation. Compared to the prior echo study, there has been an increase in the severity of aortic regurgitation. Tricuspid Valve: The tricuspid valve is normal in structure and function. There is trace tricuspid regurgitation. Pulmonary artery pressures cannot be estimated because of the lack of a measurable TR jet velocity. Pulmonic Valve: The pulmonic valve is not well visualized. There is no pulmonic valvular regurgitation. Great Vessels: The aortic root is normal size. Moderate atherosclerotic plaque(s) in the descending aorta. Moderate atherosclerotic plaque(s) in the aortic arch. The ascending aorta is at the upper limits of normal in size. The inferior vena cava was not well visualized. Pericardium/ Pleura There is no pericardial effusion. There is no pleural effusion. MMode/2D Measurements & Calculations LVIDd: 5.2 cm LVOT diam: 2.3 cm LVIDs: 3.8 cm Ao root diam: 3.9 cm FS: 26.5 % asc Aorta Diam: 3.9 cm EPSS: 0.85 cm Ao Arch Diam (Prox Trans): 2.8 cm IVSd: 1.4 cm LVPWd: 1.5 cm LV lopez. diameter/BSA (cm/m^2): 2.1 LV sys. diameter/BSA (cm/m^2): 1.6 LA A2 area: 29.8 cm2 RA long axis: 6.4 cm LA A4 area: 27.1 cm2 RA area: 24.9 cm2 LA length (vol): 6.2 cm RA vol: 82.3 ml LA vol: 111.2 ml RA : 33.4 ml/m2 LA vol index: 45.1 ml/m2 IVC diam: 2.9 cm RVD1 (basal): 4.0 cm RVD2 (mid): 3.5 cm TAPSE: 2.5 cm Doppler Measurements & Calculations Ao V2 max: 332.8 cm/sec LVOT Max Quentin: 111.4 cm/sec Ao V2 mean: 239.6 cm/sec LV V1 max P.0 mmHg Ao max P.1 mmHg LV V1 VTI: 24.1 cm Ao mean P.5 mmHg RIVAS(I,D): 1.5 cm2 Ao V2 VTI: 66.0 cm RIVAS(V,D): 1.4 cm2 sev ratio: 0.37 RIVAS indexed to BSA (cm^2/m^2): 0.62 AI P1/2t: 358.4 msec AI dec slope: 352.3 cm/sec2 MV E max quentin: 127.8 cm/sec PA V2 max: 110.5 cm/sec MV A max quentin: 82.8 cm/sec PA V2 mean: 88.1 cm/sec MV E/A: 1.5 PA mean P.3 mmHg Med Peak E' Quentin: 6.8 cm/sec PA pr(Accel): 36.2 mmHg E/E' med: 18.8 Lat Peak E' Quentin: 7.8 cm/sec E/E' lat: 16.4 E/e' average: 17.6 MV dec time: 0.26 sec SV(LVOT): 100.1 ml Reading Physician:03:29 PM
[2023-08-24 13:18] LABS: Add Manual Diff / Slide Review NO; Basophils Absolute Auto 100 /uL (0-100); Basophils Percent Auto 1.1 % (0-2); Eosinophils Absolute Auto 200 /uL (0-450); Eosinophils Percent Auto 2.4 % (2-4); Hematocrit 38.6 % (41-53); Hemoglobin 12.6 g/dL (13.5-17.5); Lymphocytes Absolute Auto 1600 /uL (1100-4500); Lymphocytes Percent Auto 16.9 % (25-40); Mean Corpuscular HGB Conc 32.7 % (30-36); Mean Corpuscular Volume 82.7 fL (80-100); Monocytes Absolute Auto 1000 /uL (0-900); Monocytes Percent Auto 10.8 % (3-14); Neutrophils Absolute Auto 6500 /uL (1500-7000); Neutrophils Percent Auto 68.8 % (50-75); Platelet Count 245 X10^3/uL (150-400); Red Blood Cell Count 4.67 X10^6/uL (4.5-5.9); Red Cell Distribution Width 15.1 % (11.6-14.8); White Blood Cell Count 9.4 X10^3/uL (4.5-11.0)
[2023-08-24 13:30] LABS: INR 1.1 (0.9-1.3); Prothrombin Time 12.6 SECONDS (9.4-12.5)
[2023-08-24 13:36] LABS: Alanine Aminotransferase 25 IU/L (<50); Albumin 4.4 g/dL (3.5-5.0); Albumin Globulin Ratio 1.4 (1.0-2.8); Alkaline Phosphatase 69 U/L (38-126); Aspartate Aminotransferase 28 IU/L (17-59); BUN Creatinine Ratio 36.4 (6-22); Bilirubin Total 0.6 mg/dL (0.2-1.3); Blood Urea Nitrogen 20 mg/dL (9-20); Calcium 9.4 mg/dL (8.4-10.2); Carbon Dioxide 23 mmol/L (22-32); Chloride 105 mmol/L (98-107); Estimated Glomerular Filt Rate > 60 mL/min (>60); Globulin 3.1 g/dL (1.7-4.1); Glucose 115 mg/dL (80-110); HEMOLYSIS < 15 (0-50); Potassium 4.1 mmol/L (3.4-5.1); Sodium 137 mmol/L (137-145); Total Protein 7.5 g/dL (6.3-8.2)
[2023-08-24 13:37] LABS: Lactate (Lactic Acid) 2.1 mmol/L (0.7-2.1)
[2023-08-24 13:46] LABS: COVID-19 CEPHEID 4-PLEX PCR Negative (Negative); Influenza A - CEPHEID Flu A NEGATIVE (NEGATIVE); Influenza B - CEPHEID Flu B NEGATIVE (NEGATIVE); Respiratory Syncytial Virus Negative (Negative)
[2023-08-24 13:48] LABS: NT-proBNP (BNP-Adult 18+) 271 pg/mL (<125); Troponin I 0.033 ng/mL (0.01-0.034)
[2023-08-24 14:22] VITALS: BP 178/83; PULSE 78; RESP 14; O2SAT 94
[2023-08-24 14:56] LABS: Reflexed Lactate in 2 Hours Y
[2023-08-24 15:31] LABS: Lactate 2HR (Lactic Acid Rflx) 1.6 mmol/L (0.7-2.1)
[2023-08-24 16:14] VITALS: BP 193/94; PULSE 90; RESP 18; O2SAT 93
== END 2023-08-24 16:14 | disposition home or self-care (01) ==
PROVIDERS: Emergency Provider Physician Assistant Medical; Family Provider Family Medicine; PCP Internal Medicine
DX: J18.9 Pneumonia, unspecified organism (principal); R60.9 Edema, unspecified; Z20.822 Contact with and (suspected) exposure to COVID-19
CPT/HCPCS: 0241U; 36415; 71045; 71275; 80053; 83605; 83880; 84484; 85025; 85610; 93005; 93010; 99284; C8929; Q9957; Q9967

== ENCOUNTER → 2023-09-28 12:15 | Outpatient (CLI) | payer OTHER, SELFPAY ==
[2022-11-03 23:44] VITALS: BMI 39.4
--- NOTE | 2023-09-28 12:20 | DI.RAD.S_ITS ---
PROCEDURE: XR CHEST 2V INDICATIONS: wheezing TECHNIQUE: 2 views of the chest were acquired. COMPARISON: [facility], , XR CHEST 1V, 08/24/2023, 13:00. FINDINGS: Surgical changes and devices: None. Lungs and pleura: Lungs are clear. No pleural effusions or pneumothorax. Mediastinum: Heart size is enlarged. Mild vascular congestion noted Bones and chest wall: No suspicious bony abnormalities. Soft tissues appear unremarkable. IMPRESSION: Cardiomegaly and mild vascular congestion Approved by: Nik Barrera M.D. on 09/28/2023 at 19:17
[2023-09-28 13:54] LABS: BUN Creatinine Ratio 40.8 (6-22); Blood Urea Nitrogen 29 mg/dL (9-20); Calcium 9.1 mg/dL (8.4-10.2); Carbon Dioxide 26 mmol/L (22-32); Chloride 103 mmol/L (98-107); Estimated Glomerular Filt Rate > 60 mL/min (>60); Glucose 94 mg/dL (80-110); HEMOLYSIS < 15 (0-50); Potassium 4.5 mmol/L (3.4-5.1); Sodium 140 mmol/L (137-145)
== END ==
PROVIDERS: Family Provider Family Medicine; PCP Internal Medicine; Referring Provider Internal Medicine; Visit Provider Internal Medicine
DX: J44.9 Chronic obstructive pulmonary disease, unspecified (principal); I10 Essential (primary) hypertension; I51.7 Cardiomegaly; R09.89 Other specified symptoms and signs involving the circulatory and respiratory systems
CPT/HCPCS: 36415; 71046; 80048

== ENCOUNTER → 2023-10-17 13:26 | Outpatient (CLI) | payer OTHER, SELFPAY ==
[2022-11-03 23:44] VITALS: BMI 39.4
== END ==
PROVIDERS: Family Provider Family Medicine; PCP Internal Medicine; Referring Provider Internal Medicine; Visit Provider Internal Medicine
DX: J44.9 Chronic obstructive pulmonary disease, unspecified (principal); F17.210 Nicotine dependence, cigarettes, uncomplicated
CPT/HCPCS: 94060; 94726; 94729

== ENCOUNTER → 2023-11-06 13:02 | Outpatient (CLI) | payer OTHER, SELFPAY ==
[2022-11-03 23:44] VITALS: BMI 39.4
[2023-11-06 14:22] LABS: Blood Urea Nitrogen 22 mg/dL (9-20); Calcium 9.3 mg/dL (8.4-10.2); Carbon Dioxide 24 mmol/L (22-32); Chloride 108 mmol/L (98-107); Estimated Glomerular Filt Rate > 60 mL/min (>60); Glucose 96 mg/dL (80-110); HEMOLYSIS < 15 (0-50); Potassium 4.7 mmol/L (3.4-5.1); Sodium 143 mmol/L (137-145)
[2023-11-06 14:30] LABS: NT-proBNP (BNP-Adult 18+) 351 pg/mL (<125)
== END ==
PROVIDERS: Family Provider Family Medicine; PCP Internal Medicine; Referring Provider Internal Medicine Critical Care Medicine; Visit Provider Internal Medicine Critical Care Medicine
DX: I35.0 Nonrheumatic aortic (valve) stenosis (principal)
CPT/HCPCS: 36415; 80048; 83880

== ENCOUNTER → 2023-12-12 11:07 | Outpatient (CLI) | payer OTHER, SELFPAY ==
[2022-11-03 23:44] VITALS: BMI 39.4
--- NOTE | 2023-12-12 11:09 | DI.US.S_ITS ---
PROCEDURE: US CAROTID DOPPLER BI INDICATIONS: LEFT CAROTID BRUIT TECHNIQUE: Color and pulse Doppler interrogation was performed of both carotid systems, with image documentation and velocity measurements. COMPARISON: [facility], US, US CAROTID DOPPLER BI, 07/12/2022, 11:22. FINDINGS: Stenosis calculations are based on SRU (Society of Radiologists in Ultrasound) criteria. Right side: Brachial blood pressure: Not obtained Common carotid artery peak systolic velocity: 58 cm/sec. Internal carotid artery peak systolic velocity: 142 cm/sec. Internal carotid artery end diastolic velocity: 27 cm/sec. External carotid artery peak systolic velocity: 122 cm/sec. ICA/CCA peak systolic ratio: 2.4. Quinteros scale imaging description: Dense atheromatous plaquing calcification are present at the bifurcation. Percent internal carotid artery stenosis: 50-69% stenosis. Vertebral artery: Flow direction is antegrade. Left side: Brachial blood pressure: Not obtained Common carotid artery peak systolic velocity: 69 cm/sec. Internal carotid artery peak systolic velocity: 175 cm/sec. Internal carotid artery end diastolic velocity: 42 cm/sec. External carotid artery peak systolic velocity: 114 cm/sec. ICA/CCA peak systolic ratio: 2.5. Quinteros scale imaging description: Dense atheromatous plaque and calcification is present at the carotid bifurcation. Percent internal carotid artery stenosis: 50-69% stenosis. Vertebral artery: Flow direction is antegrade. IMPRESSION: 50-69% stenosis of the bilateral internal carotid arteries which is unchanged from the study dated July 12, 2022. Dictated by: Daniella Fairbanks M.D. on 12/12/2023 at 12:32 Approved by: Daniella Fairbanks M.D. on 12/12/2023 at 12:39
[2023-12-12 12:00] LABS: BUN Creatinine Ratio 31.7 (6-22); Blood Urea Nitrogen 26 mg/dL (9-20); Calcium 9.3 mg/dL (8.4-10.2); Carbon Dioxide 23 mmol/L (22-32); Chloride 110 mmol/L (98-107); Estimated Glomerular Filt Rate > 60 mL/min (>60); Glucose 136 mg/dL (80-110); HEMOLYSIS < 15 (0-50); Potassium 4.5 mmol/L (3.4-5.1); Sodium 142 mmol/L (137-145)
== END ==
LOC: US 11:08
PROVIDERS: Family Provider Family Medicine; PCP Internal Medicine; Referring Provider Internal Medicine; Visit Provider Internal Medicine
DX: R09.89 Other specified symptoms and signs involving the circulatory and respiratory systems (principal); I50.32 Chronic diastolic (congestive) heart failure; I65.23 Occlusion and stenosis of bilateral carotid arteries
CPT/HCPCS: 36415; 80048; 93880

== ENCOUNTER → 2024-01-11 12:37 | Outpatient (CLI) | payer OTHER, SELFPAY ==
[2022-11-03 23:44] VITALS: BMI 39.4
[2024-01-11 14:10] LABS: BUN Creatinine Ratio 21.6 (6-22); Blood Urea Nitrogen 21 mg/dL (9-20); Calcium 8.9 mg/dL (8.4-10.2); Carbon Dioxide 25 mmol/L (22-32); Chloride 108 mmol/L (98-107); Estimated Glomerular Filt Rate > 60 mL/min (>60); Glucose 108 mg/dL (80-110); HEMOLYSIS < 15 (0-50); Potassium 4.7 mmol/L (3.4-5.1); Sodium 141 mmol/L (137-145)
== END ==
PROVIDERS: Family Provider Family Medicine; PCP Internal Medicine; Referring Provider Internal Medicine; Visit Provider Internal Medicine
DX: I50.32 Chronic diastolic (congestive) heart failure (principal)
CPT/HCPCS: 36415; 80048

== ENCOUNTER → 2024-04-18 09:36 | Outpatient (CLI) | payer OTHER, SELFPAY ==
[2022-11-03 23:44] VITALS: BMI 39.4
== END ==
LOC: WC 09:44
PROVIDERS: Family Provider Family Medicine; PCP Internal Medicine; Referring Provider Internal Medicine; Visit Provider Surgery
DX: L97.322 Non-pressure chronic ulcer of left ankle with fat layer exposed (principal); I87.2 Venous insufficiency (chronic) (peripheral); R60.0 Localized edema; L53.9 Erythematous condition, unspecified; I10 Essential (primary) hypertension
CPT/HCPCS: 29581; 87070; 87075; 87077; 87147; 87186; 87205; 99204; 99214

== ENCOUNTER → 2024-04-22 13:30 | Outpatient (CLI) | payer OTHER, SELFPAY ==
[2022-11-03 23:44] VITALS: BMI 39.4
--- NOTE | 2024-04-22 13:32 | DI.RAD.S_ITS ---
PROCEDURE: XR ANKLE LT MIN 3V INDICATIONS: chronic ulcer distal to left medial and lateral ankle TECHNIQUE: 3 views of the ankle were acquired. COMPARISON: None. FINDINGS: Bones: Remote avulsion fracture of the tip of the medial malleolus appreciated. There is also a calcification in the lateral ankle mortise. These may function is loose bodies. Small effusion noted. Os trigonum appreciated. Tibiotalar and talocalcaneal joints: Normal in width and alignment . Small ankle effusion noted. Dorsal periarticular spurring present the talar navicular joint Soft tissues: Mild diffuse soft tissue swelling noted. IMPRESSION: Small remote avulsion fractures off the tips of the medial and lateral malleoli which could function as loose bodies in the ankle mortise. Small effusion noted. Dictated by: Israel Barraza M.D. on 04/23/2024 at 8:05 Approved by: Israel Barraza M.D. on 04/23/2024 at 8:08
== END ==
PROVIDERS: Family Provider Family Medicine; PCP Internal Medicine; Referring Provider Surgery; Visit Provider Surgery
DX: L97.329 Non-pressure chronic ulcer of left ankle with unspecified severity (principal); M25.472 Effusion, left ankle; S82.52XS Displaced fracture of medial malleolus of left tibia, sequela
CPT/HCPCS: 73610

== ENCOUNTER → 2024-04-22 15:25 | Outpatient (CLI) | payer OTHER, SELFPAY ==
[2022-11-03 23:44] VITALS: BMI 39.4
== END ==
PROVIDERS: Family Provider Family Medicine; PCP Internal Medicine; Referring Provider Internal Medicine; Visit Provider Surgery
DX: L97.322 Non-pressure chronic ulcer of left ankle with fat layer exposed (principal); I87.2 Venous insufficiency (chronic) (peripheral); R60.0 Localized edema; L53.9 Erythematous condition, unspecified
CPT/HCPCS: 29581

== ENCOUNTER → 2024-04-25 14:24 | Outpatient (CLI) | payer OTHER, SELFPAY ==
[2022-11-03 23:44] VITALS: BMI 39.4
== END ==
LOC: WC 14:25
PROVIDERS: Family Provider Family Medicine; PCP Internal Medicine; Referring Provider Internal Medicine; Visit Provider Surgery
DX: L97.322 Non-pressure chronic ulcer of left ankle with fat layer exposed (principal); I87.2 Venous insufficiency (chronic) (peripheral); R60.0 Localized edema; L53.9 Erythematous condition, unspecified
CPT/HCPCS: 29581; 99213

== ENCOUNTER → 2024-04-29 11:58 | Outpatient (CLI) | payer OTHER, SELFPAY ==
[2022-11-03 23:44] VITALS: BMI 39.4
== END ==
LOC: WC 11:58
PROVIDERS: Family Provider Family Medicine; PCP Internal Medicine; Referring Provider Internal Medicine; Visit Provider Surgery
DX: L97.322 Non-pressure chronic ulcer of left ankle with fat layer exposed (principal); I87.2 Venous insufficiency (chronic) (peripheral); R60.0 Localized edema; L53.9 Erythematous condition, unspecified
CPT/HCPCS: 29581

== ENCOUNTER → 2024-05-02 11:22 | Outpatient (CLI) | payer OTHER, SELFPAY ==
[2022-11-03 23:44] VITALS: BMI 39.4
== END ==
PROVIDERS: Family Provider Family Medicine; PCP Internal Medicine; Referring Provider Internal Medicine; Visit Provider Surgery
DX: L97.322 Non-pressure chronic ulcer of left ankle with fat layer exposed (principal); I87.2 Venous insufficiency (chronic) (peripheral); R60.0 Localized edema; L53.9 Erythematous condition, unspecified; L08.89 Other specified local infections of the skin and subcutaneous tissue; Z79.2 Long term (current) use of antibiotics
CPT/HCPCS: 97602; 99213

== ENCOUNTER → 2024-05-06 11:32 | Outpatient (CLI) | payer OTHER, SELFPAY ==
[2022-11-03 23:44] VITALS: BMI 39.4
== END ==
PROVIDERS: Family Provider Family Medicine; PCP Internal Medicine; Referring Provider Internal Medicine; Visit Provider Surgery
DX: L97.322 Non-pressure chronic ulcer of left ankle with fat layer exposed (principal); I87.2 Venous insufficiency (chronic) (peripheral); R60.0 Localized edema; L08.89 Other specified local infections of the skin and subcutaneous tissue; Z79.2 Long term (current) use of antibiotics
CPT/HCPCS: 99212; 99213

== ENCOUNTER → 2024-05-13 06:44 | Outpatient (CLI) | payer OTHER, SELFPAY ==
[2022-11-03 23:44] VITALS: BMI 39.4
--- NOTE | 2024-05-13 06:45 | DI.US.S_ITS ---
PROCEDURE: US VENOUS INSUFFICIENCY LTD INDICATIONS: chronic ulcer on medial and lateral left ankle TECHNIQUE: Real time scanning was performed of the left lower extremity venous system, with imaging documentation, as well as Color and pulse Doppler interrogation. COMPARISON: None. FINDINGS: LEFT LOWER EXTREMITY: The deep veins are normally compressible, and free of intraluminal thrombus. Color and pulse Doppler demonstrate normal intravascular flow. There is normal augmentation with distal compression maneuver. Deep venous insufficiency is identified within the femoral vein in the midthigh and common femoral vein. Left common femoral vein with reflux time 4.2 seconds. Left femoral vein in the mid thigh with reflux time 1.1 seconds. Borderline reflux involving the popliteal vein with reflux time 0.9 seconds. Greater saphenous vein (GSV): Normally 4 mm or less in diameter, with any reflux less than 0.5 seconds. Saphenofemoral junction (SFJ): 10 mm. Reflux time 3.6 seconds. Proximal GSV: 9 mm. Reflux time is 0.9 seconds. Mid GSV: 7 mm. Reflux time 1.1 seconds. Distal GSV: 7 mm. Reflux time 1.1 seconds. Calf GSV: 6 mm, and reflux times 0.8 seconds. Anterior accessory GSV (AAGSV): Anatomic variant without evidence of reflux. Small saphenous vein (SSV): Posterior calf, draining into popliteal vein. Posterior calf: 10 mm. Reflux times are 0.6 seconds. Chronic appearing nonocclusive thrombus within the SSV in the mid to upper calf. Vein of Giacomini (posterior thigh connection between GSV and SSV): Anatomic variant not seen. Manager Event veins: Calf: Location proximal calf, diameter 4 mm with reflux time 0.6 seconds. Location mid calf, diameter 3 mm with reflux time 1.3 seconds. OTHER: 1.2 cm prominent lymph node within the popliteal fossa. Incidental note is made of the 3.5 cm x 3.5 cm x 1.2 cm hyperechoic mass within the mid anterior left thigh suggestive of a lipoma. IMPRESSION: 1. Superficial venous insufficiency involving the left GSV and SSV as described. Couple of perforators within the mid and upper calf demonstrating venous incompetence. 2. Deep venous insufficiency involving the left femoral vein in the midthigh and common femoral vein. Borderline deep venous insufficiency involving the left popliteal vein. 3. Chronic appearing nonocclusive thrombus within the SSV in the mid to upper calf. Dictated by: Rivas Washington M.D. on 05/13/2024 at 10:47 Approved by: Rivas Washington M.D. on 05/13/2024 at 11:02
== END ==
PROVIDERS: Family Provider Family Medicine; PCP Internal Medicine; Referring Provider Surgery; Visit Provider Surgery
DX: L97.929 Non-pressure chronic ulcer of unspecified part of left lower leg with unspecified severity (principal); I82.812 Embolism and thrombosis of superficial veins of left lower extremity; I87.2 Venous insufficiency (chronic) (peripheral); R22.42 Localized swelling, mass and lump, left lower limb
CPT/HCPCS: 93971

== ENCOUNTER → 2024-05-13 10:15 | Outpatient (CLI) | payer OTHER, SELFPAY ==
[2022-11-03 23:44] VITALS: BMI 39.4
== END ==
PROVIDERS: Family Provider Family Medicine; PCP Internal Medicine; Referring Provider Internal Medicine; Visit Provider Surgery
DX: L97.322 Non-pressure chronic ulcer of left ankle with fat layer exposed (principal); I87.2 Venous insufficiency (chronic) (peripheral); R60.0 Localized edema
CPT/HCPCS: 97602; 99213

== ENCOUNTER → 2024-05-27 10:22 | Outpatient (CLI) | payer OTHER, SELFPAY ==
[2022-11-03 23:44] VITALS: BMI 39.4
== END ==
PROVIDERS: Family Provider Family Medicine; PCP Internal Medicine; Referring Provider Internal Medicine; Visit Provider Surgery
DX: L97.322 Non-pressure chronic ulcer of left ankle with fat layer exposed (principal); I87.2 Venous insufficiency (chronic) (peripheral); R60.0 Localized edema; I10 Essential (primary) hypertension; Z87.891 Personal history of nicotine dependence; Z86.718 Personal history of other venous thrombosis and embolism
CPT/HCPCS: 97597; 97598; 99213

== ENCOUNTER → 2024-06-04 10:26 | Outpatient (CLI) | payer OTHER, SELFPAY ==
[2022-11-03 23:44] VITALS: BMI 39.4
== END ==
LOC: WC 10:26
PROVIDERS: Family Provider Family Medicine; PCP Internal Medicine; Referring Provider Internal Medicine; Visit Provider Surgery
DX: L97.322 Non-pressure chronic ulcer of left ankle with fat layer exposed (principal); I87.2 Venous insufficiency (chronic) (peripheral); R60.0 Localized edema
CPT/HCPCS: 97602; 99213

== ENCOUNTER → 2024-06-18 11:10 | Outpatient (CLI) | payer OTHER, SELFPAY ==
[2022-11-03 23:44] VITALS: BMI 39.4
== END ==
LOC: WC 11:11
PROVIDERS: Family Provider Family Medicine; PCP Internal Medicine; Referring Provider Internal Medicine; Visit Provider Surgery
DX: L97.322 Non-pressure chronic ulcer of left ankle with fat layer exposed (principal); L98.8 Other specified disorders of the skin and subcutaneous tissue; I87.2 Venous insufficiency (chronic) (peripheral); R60.0 Localized edema; I10 Essential (primary) hypertension; Z86.718 Personal history of other venous thrombosis and embolism; L53.9 Erythematous condition, unspecified
CPT/HCPCS: 99212; 99213

== ENCOUNTER → 2024-07-02 10:53 | Outpatient (CLI) | payer OTHER, SELFPAY ==
[2022-11-03 23:44] VITALS: BMI 39.4
== END ==
PROVIDERS: Family Provider Family Medicine; PCP Internal Medicine; Referring Provider Internal Medicine; Visit Provider Surgery
DX: L97.322 Non-pressure chronic ulcer of left ankle with fat layer exposed (principal); I87.2 Venous insufficiency (chronic) (peripheral); R60.0 Localized edema; L53.9 Erythematous condition, unspecified
CPT/HCPCS: 99213

== ENCOUNTER → 2024-10-24 12:01 | Outpatient (CLI) | payer OTHER, SELFPAY ==
[2022-11-03 23:44] VITALS: BMI 39.4
--- NOTE | 2024-10-24 12:03 | DI.RAD.S_ITS ---
PROCEDURE: XR CERVICAL SPINE 2V OR 3V INDICATIONS: neck pain TECHNIQUE: 3 view(s) of the cervical spine were acquired. COMPARISON: MR, MR CERVICAL SPINE WO/W CON, 11/30/2020, 17:51. FINDINGS: Bones: No fractures or dislocations to the C6 level. The lateral masses of C1 appear intact on the odontoid view. No suspicious bony lesions. Multilevel degenerative disc space narrowing Multilevel uncovertebral arthropathy. most severe at C5-6. Soft tissues: No prevertebral soft tissue swelling. IMPRESSION: Multilevel degenerative changes most prominent C5-6. Dictated by: Keiko Almodovar M.D. on 10/24/2024 at 12:58 Approved by: Keiko Almodovar M.D. on 10/24/2024 at 13:00
--- NOTE | 2024-10-24 12:03 | DI.RAD.S_ITS ---
PROCEDURE: XR THORACIC SPINE 3V INDICATIONS: neck pain TECHNIQUE: 3 views of the thoracic spine were acquired. COMPARISON: [facility], CR, XR THORACIC SPINE 3V, 06/11/2021, 10:18. FINDINGS: Bones: No fractures or dislocations. No suspicious bony lesions. 12 pairs of ribs are noted, and appear intact where visualized. Multilevel degenerative disc space narrowing as well as scattered anterior osteophytes most prominent in the midportion of the thoracic. Soft tissues: No paravertebral stripe thickening. IMPRESSION: Multilevel degenerative changes. Dictated by: Keiko Almodovar M.D. on 10/24/2024 at 13:00 Approved by: Keiko Almodovar M.D. on 10/24/2024 at 13:01
[2024-10-24 12:25] LABS: Add Manual Diff / Slide Review NO; Basophils Absolute Auto 100 /uL (0-100); Basophils Percent Auto 0.9 % (0-2); Eosinophils Absolute Auto 300 /uL (0-450); Eosinophils Percent Auto 2.6 % (2-4); Hematocrit 43.5 % (41-53); Hemoglobin 14.4 g/dL (13.5-17.5); Lymphocytes Absolute Auto 1800 /uL (1100-4500); Lymphocytes Percent Auto 18.3 % (25-40); Mean Corpuscular HGB Conc 33.1 % (30-36); Mean Corpuscular Hemoglobin 28.6 PG (26-34); Mean Corpuscular Volume 86.4 fL (80-100); Monocytes Absolute Auto 1100 /uL (0-900); Monocytes Percent Auto 10.9 % (3-14); Neutrophils Absolute Auto 6600 /uL (1500-7000); Neutrophils Percent Auto 67.3 % (50-75); Platelet Count 242 X10^3/uL (150-400); Red Blood Cell Count 5.03 X10^6/uL (4.5-5.9); Red Cell Distribution Width 15.6 % (11.6-14.8); White Blood Cell Count 9.8 X10^3/uL (4.5-11.0)
[2024-10-24 12:43] LABS: Erythrocyte Sedimentation Rate 5 MM/HR (0-15)
[2024-10-24 12:45] LABS: C-Reactive Protein Quant 0.6 mg/dL (<1.0)
== END ==
LOC: LAB 12:02
PROVIDERS: Family Provider Family Medicine; PCP Family Medicine; Referring Provider Family Medicine; Visit Provider Family Medicine
DX: M47.814 Spondylosis without myelopathy or radiculopathy, thoracic region (principal); M62.838 Other muscle spasm; M48.9 Spondylopathy, unspecified; M89.8X8 Other specified disorders of bone, other site
CPT/HCPCS: 36415; 72040; 72072; 85025; 85651; 86140

== ENCOUNTER → 2025-01-31 07:51 | Outpatient (CLI) | payer OTHER, SELFPAY ==
[2022-11-03 23:44] VITALS: BMI 39.4
== END ==
LOC: LAB 07:52
PROVIDERS: Family Provider Family Medicine; PCP Family Medicine; Referring Provider Family Medicine; Visit Provider Family Medicine
DX: R68.82 Decreased libido (principal); R53.83 Other fatigue
CPT/HCPCS: 36415; 84402; 84403

== ENCOUNTER → 2025-07-05 10:48 | Outpatient (CLI) | payer OTHER, SELFPAY ==
[2022-11-03 23:44] VITALS: BMI 39.4
[2025-07-05 11:48] LABS: Add Manual Diff / Slide Review NO; Hematocrit 45.4 % (41-53); Hemoglobin 14.8 g/dL (13.5-17.5); Lymphocytes Absolute Auto 1500 /uL (1100-4500); Mean Corpuscular HGB Conc 32.6 % (30-36); Mean Corpuscular Hemoglobin 27.9 PG (26-34); Mean Corpuscular Volume 85.4 fL (80-100); Platelet Count 191 X10^3/uL (150-400)
[2025-07-05 12:05] LABS: Alanine Aminotransferase 25 IU/L (<50); Albumin 4.5 g/dL (3.5-5.0); Albumin Globulin Ratio 1.6 (1.0-2.8); Alkaline Phosphatase 75 U/L (38-126); Blood Urea Nitrogen 34 mg/dL (9-20); Calcium 10.1 mg/dL (8.4-10.2); Carbon Dioxide 24 mmol/L (22-32); Chloride 108 mmol/L (98-107); Cholesterol 250 mg/dL (140-199); Estimated Glomerular Filt Rate > 60 mL/min (>60); Globulin 2.9 g/dL (1.7-4.1); Glucose 131 mg/dL (70-99); HDL Cholesterol 43 mg/dL (40-60); HEMOLYSIS < 15 (0-50); Potassium 4.9 mmol/L (3.4-5.1); Sodium 141 mmol/L (137-145); Total Protein 7.4 g/dL (6.3-8.2); Triglycerides 459 mg/dL (35-150)
[2025-07-05 12:35] LABS: TSH w/ Reflex to FT4 0.90 uIU/mL (0.47-4.68)
== END ==
PROVIDERS: Family Provider Family Medicine; PCP Family Medicine; Referring Provider Family Medicine; Visit Provider Family Medicine
DX: Z12.5 Encounter for screening for malignant neoplasm of prostate (principal); I67.9 Cerebrovascular disease, unspecified; I11.0 Hypertensive heart disease with heart failure; I50.32 Chronic diastolic (congestive) heart failure; M62.838 Other muscle spasm; R79.89 Other specified abnormal findings of blood chemistry
CPT/HCPCS: 36415; 80053; 80061; 84402; 84403; 84443; 85025; G0103